=== PATIENT | male | born 1930 | race African-American/Black ===

== ENCOUNTER 2017-01-19 09:39 | Emergency (ER) | payer MEDICARE ==
[~2017-01-19] VITALS: Ht 177.8 cm; Wt 115.0 kg
[2017-01-19] MEDS ORDERED: ALBUTEROL (0.083%) 2.5MG/3ML NEB HHN STA (09:49)
[2017-01-19 10:23] LABS: BASOPHILS % 0.7 % (0.0-2.0); EOSINOPHILS % 2.8 % (0.0-5.0); HEMATOCRIT. 46.3 % (42.0-52.0); HEMOGLOBIN. 14.9 g/dL (14.0-18.0); LYMPHOCYTES % 44.8 % (20.0-50.0); MEAN CORPUSCULAR HGB CONC 32.2 g/dL (31.0-37.0); MEAN CORPUSCULAR VOLUME 86.9 fL (80.0-94.0); MEAN PLATELET VOLUME 8.2 fl (7.4-10.4); NEUTROPHILS % 40.7 % (40.0-76.0); PLATELET 134 x1000/uL (130-400); RED BLOOD CELL COUNT 5.32 mill/uL (4.7-6.1); RED CELL DISTRIBUTION WIDTH 14.8 % (11.6-14.6); WHITE BLOOD COUNT 5.5 x1000/uL (4.5-11.0)
[2017-01-19 10:32] LABS: ALBUMIN 3.3 g/dL (3.4-5.0); CALCIUM 8.7 mg/dL (8.5-10.1); CHLORIDE 104 mEq/L (98-107); INDEX HEMOLYSI 1 (1-3); INDEX ICTERIC 1 (1-4); INDEX LIPEMIC 1 (1-3)
[2017-01-19 10:38] LABS: ALANINE AMINOTRANSFERASE 24 IU/L (13-61); ANION GAP 13; CARBON DIOXIDE 27 mEq/L (21-32); UREA NITROGEN BLOOD 23 mg/dL (7-21); eGFR > 60 mL/min (>60)
[2017-01-19] MEDS ORDERED: ALBUTEROL (0.5%) 2.5MG/0.5ML NEB HHN ONE (11:00)
[2017-01-19] MEDS ORDERED: PREDNISONE 20MG TABLET PO ONE (11:00)
[2017-01-19 12:03] VITALS: BP 119/71
== END 2017-01-19 12:06 | disposition home or self-care (01) ==
LOC: ER 09:48
DX: J45.901 Unspecified asthma with (acute) exacerbation (principal); I10 Essential (primary) hypertension; Z95.0 Presence of cardiac pacemaker
CPT/HCPCS: 36415; 71010; 80053; 85025; 93005; 94640; 99285; J7512; J7611

== ENCOUNTER 2017-09-09 08:26 | Emergency (ER) | payer MEDICARE ==
[~2017-09-09] VITALS: Ht 177.8 cm; Wt 110.0 kg
[2017-09-09] MEDS ORDERED: HYDROCODONE/ACETAMINOPHEN 5/325MG TABLET PO ONE (08:45)
[2017-09-09] MEDS ORDERED: KETOROLAC 30MG/ML VIAL IM ONE (08:45)
[2017-09-09 09:36] LABS: KETONES URINE NEGATIVE (NEGATIVE); LEUKOCYTE ESTERASE URINE NEGATIVE (NEGATIVE); NITRITE URINE NEGATIVE (NEGATIVE); OCCULT BLOOD URINE NEGATIVE (NEGATIVE); PROTEIN URINE NEGATIVE (NEGATIVE); SPECIFIC GRAVITY URINE 1.019 (1.005-1.030); UROBILINOGEN URINE 0.2 E.U./dL (0.2-1.0)
[2017-09-09 09:38] LABS: CLARITY URINE CLEAR (CLEAR); COLOR URINE YELLOW (YELLOW)
[2017-09-09 10:45] VITALS: BP 122/72
== END 2017-09-09 10:47 | disposition home or self-care (01) ==
LOC: ER 08:26
DX: M54.5 Low back pain (principal); M25.552 Pain in left hip; J45.909 Unspecified asthma, uncomplicated; I10 Essential (primary) hypertension; Z95.0 Presence of cardiac pacemaker
CPT/HCPCS: 72100; 73502; 81003; 96372; 99285; J1885

== ENCOUNTER 2019-09-14 11:54 | Inpatient (IN) | payer MEDICARE ==
[~2019-09-14] VITALS: Ht 180.3 cm; Wt 110.2 kg
[2019-09-14] VITALS (7 sets, daily range): BP systolic 95–153; BP diastolic 37–88
[2019-09-14] MEDS ORDERED: FUROSEMIDE 40MG/4ML VIAL IV ONE (12:30)
[2019-09-14 13:08] LABS: CHLORIDE 107 mEq/L (98-107)
[2019-09-14 14:31] LABS: BASOPHILS % 0.7 % (0.0-2.0); EOSINOPHILS % 1.4 % (0.0-5.0); HEMATOCRIT. 42.4 % (42.0-52.0); HEMOGLOBIN. 13.9 g/dL (14.0-18.0); LYMPHOCYTES % 20.3 % (20.0-50.0); MEAN CORPUSCULAR HEMOGLOBIN 29.2 pg (28.0-32.0); MEAN CORPUSCULAR VOLUME 88.8 fL (80.0-94.0); MEAN PLATELET VOLUME 9.4 fl (7.4-10.4); MONOCYTES % 10.8 % (2.0-8.0); NEUTROPHILS % 66.8 % (40.0-76.0); PLATELET 138 x1000/uL (130-400); RED BLOOD CELL COUNT 4.78 mill/uL (4.7-6.1); RED CELL DISTRIBUTION WIDTH 15.4 % (11.6-14.6)
[2019-09-14] MEDS ORDERED: DIPHENHYDRAMINE 50MG/ML VIAL IV PRN (17:00)
[2019-09-14] MEDS ORDERED: TEMAZEPAM 15MG CAPSULE PO PRN (17:00)
[2019-09-14] MEDS ORDERED: IPRATROPIUM/ALBUTEROL 0.5-3(2.5)MG/3ML NEB HHN PRN (17:00)
[2019-09-14] MEDS ORDERED: HYDROCODONE/ACETAMINOPHEN 5/325MG TABLET PO PRN (17:00)
[2019-09-14] MEDS ORDERED: ONDANSETRON HCL 4MG/2ML INJ IV PRN (17:00)
[2019-09-14] MEDS ORDERED: MAGNESIUM/ALUMINUM HYDROXIDE/SIMETHICONE 30ML UDC PO PRN (17:00)
[2019-09-14] MEDS ORDERED: MAGNESIUM HYDROXIDE 400MG/5ML 30ML UDC PO PRN (17:00)
[2019-09-14] MEDS ORDERED: ACETAMINOPHEN 325MG TABLET PO PRN (17:00)
[2019-09-14] MEDS ORDERED: GUAIFENESIN 200MG/10ML SUGAR FREE UDC PO PRN (17:00)
[2019-09-14] MEDS: FUROSEMIDE 40MG/4ML VIAL IVP SCH (17:37)
[2019-09-14] MEDS: BENAZEPRIL 10MG TABLET PO SCH (17:37)
[2019-09-14] MEDS: DOCUSATE SODIUM 100MG CAPSULE PO SCH (17:37)
[2019-09-14] MEDS: ENOXAPARIN 30MG/0.3ML SYR SUBCUT SCH (17:38)
[2019-09-14] MEDS ORDERED: ATOR-2 PO (18:25)
[2019-09-14] MEDS ORDERED: METO100T16 PO (18:25)
[2019-09-14] MEDS ORDERED: FURO40TA5 PO (18:25)
[2019-09-14] MEDS ORDERED: SACU1TAB4 MT (18:25)
[2019-09-14] MEDS ORDERED: ASPI-1079 PO (18:26)
[2019-09-14] MEDS ORDERED: CHOL200059 MT (18:27)
[2019-09-14] MEDS: IPRATROPIUM/ALBUTEROL 0.5-3(2.5)MG/3ML NEB HHN SCH (20:26)
[2019-09-14] MEDS: CARVEDILOL 6.25 MG TABLET PO SCH (21:26)
[2019-09-14] MEDS: SODIUM CHLORIDE 0.9% INJ 3ML FLUSH IVF SCH (21:26)
[2019-09-15] VITALS (14 sets, daily range): BP systolic 89–134; BP diastolic 52–78
[2019-09-15 00:22] LABS: BASOPHILS % 0.8 % (0.0-2.0); EOSINOPHILS % 0.8 % (0.0-5.0); HEMATOCRIT. 41.7 % (42.0-52.0); HEMOGLOBIN. 13.5 g/dL (14.0-18.0); LYMPHOCYTES % 20.6 % (20.0-50.0); MEAN CORPUSCULAR HEMOGLOBIN 28.8 pg (28.0-32.0); MEAN CORPUSCULAR VOLUME 89.2 fL (80.0-94.0); MEAN PLATELET VOLUME 9.2 fl (7.4-10.4); MONOCYTES % 11.1 % (2.0-8.0); NEUTROPHILS % 66.7 % (40.0-76.0); PLATELET 109 x1000/uL (130-400); RED BLOOD CELL COUNT 4.68 mill/uL (4.7-6.1); RED CELL DISTRIBUTION WIDTH 15.3 % (11.6-14.6)
[2019-09-15 00:29] LABS: CHLORIDE 106 mEq/L (98-107)
[2019-09-15] MEDS: IPRATROPIUM/ALBUTEROL 0.5-3(2.5)MG/3ML NEB HHN SCH ×4 (02:27→20:12)
[2019-09-15] MEDS: FUROSEMIDE 40MG/4ML VIAL IVP SCH ×2 (05:57→17:43)
[2019-09-15] MEDS: BENAZEPRIL 10MG TABLET PO SCH ×2 (06:00→17:44)
[2019-09-15] MEDS: SODIUM CHLORIDE 0.9% INJ 3ML FLUSH IVF SCH ×3 (06:01→22:22)
[2019-09-15] MEDS: ENOXAPARIN 30MG/0.3ML SYR SUBCUT SCH ×2 (06:02→17:44)
[2019-09-15] MEDS: CARVEDILOL 6.25 MG TABLET PO SCH ×2 (08:58→20:15)
[2019-09-15] MEDS: DOCUSATE SODIUM 100MG CAPSULE PO SCH ×2 (08:58→17:00)
[2019-09-15] MEDS ORDERED: METHYLPREDNISOLONE SOD SUCC 125 MG/2 ML VIAL IV NR (15:00)
[2019-09-15 17:32] LABS: BG CARBOXYHEMOGLOBIN 0.4 % (0.5-1.5); BG DEOXYHEMOGLOBIN 4.4 % (0.0-5.0); BG FRACTION INSPIRED OXYGEN 28; BG HCO3 ACT 28.5 mmol/L (22.0-26.0); BG METHEMOGLOBIN 0.2 % (0.0-1.5); BG OXYGEN SATURATION 95.6 % (92.0-98.5); BG PCO2 52.3 mmHg (35.0-45.0); BG PH 7.354 (7.350-7.450); BG PO2 82.4 mmHg (75.0-100.0); BG SAMPLE SITE LEFT RADIAL; BG TOTAL HEMOGLOBIN 13.8 g/dL (12.0-18.0); BG VENT MODE NASAL CANNULA
[2019-09-15] MEDS: GUAIFENESIN 600MG ER TABLET PO SCH (20:15)
[2019-09-15] MEDS: METHYLPREDNISOLONE SOD SUCC 125 MG/2 ML VIAL IV SCH (22:22)
[2019-09-16] VITALS (13 sets, daily range): BP systolic 88–139; BP diastolic 48–88
[2019-09-16] MEDS: IPRATROPIUM/ALBUTEROL 0.5-3(2.5)MG/3ML NEB HHN SCH ×4 (02:16→20:33)
[2019-09-16] MEDS: FUROSEMIDE 40MG/4ML VIAL IVP SCH ×2 (06:31→17:27)
[2019-09-16] MEDS: METHYLPREDNISOLONE SOD SUCC 125 MG/2 ML VIAL IV SCH ×3 (06:32→21:13)
[2019-09-16] MEDS: SODIUM CHLORIDE 0.9% INJ 3ML FLUSH IVF SCH ×3 (06:33→21:14)
[2019-09-16] MEDS: ENOXAPARIN 30MG/0.3ML SYR SUBCUT SCH ×2 (06:33→17:27)
[2019-09-16] MEDS: BENAZEPRIL 10MG TABLET PO SCH ×2 (07:05→17:27)
[2019-09-16] MEDS: DOCUSATE SODIUM 100MG CAPSULE PO SCH ×2 (09:00→17:00)
[2019-09-16] MEDS: CARVEDILOL 6.25 MG TABLET PO SCH ×2 (11:49→21:14)
[2019-09-16] MEDS: GUAIFENESIN 600MG ER TABLET PO SCH ×2 (11:50→21:11)
[2019-09-16] MEDS ORDERED: OXYCODONE HCL/ACETAMINOPHEN 5/325MG TABLET PO PRN ×2 (19:45)
[2019-09-17 00:01] VITALS: BP 101/56
[2019-09-17] MEDS: IPRATROPIUM/ALBUTEROL 0.5-3(2.5)MG/3ML NEB HHN SCH ×4 (01:07→20:01)
[2019-09-17 04:00] VITALS: BP 118/79
[2019-09-17] MEDS: FUROSEMIDE 40MG/4ML VIAL IVP SCH ×2 (05:00→18:26)
[2019-09-17] MEDS: METHYLPREDNISOLONE SOD SUCC 125 MG/2 ML VIAL IV SCH ×3 (05:43→21:36)
[2019-09-17] MEDS: BENAZEPRIL 10MG TABLET PO SCH ×2 (05:43→18:00)
[2019-09-17] MEDS: SODIUM CHLORIDE 0.9% INJ 3ML FLUSH IVF SCH ×3 (05:43→21:36)
[2019-09-17] MEDS: ENOXAPARIN 30MG/0.3ML SYR SUBCUT SCH ×2 (05:44→18:26)
[2019-09-17 06:54] LABS: HEMATOCRIT. 44.5 % (42.0-52.0); HEMOGLOBIN. 14.6 g/dL (14.0-18.0); MEAN CORPUSCULAR HEMOGLOBIN 28.9 pg (28.0-32.0); MEAN CORPUSCULAR VOLUME 88.2 fL (80.0-94.0); RED BLOOD CELL COUNT 5.04 mill/uL (4.7-6.1); RED CELL DISTRIBUTION WIDTH 14.7 % (11.6-14.6)
[2019-09-17 08:00] VITALS: BP 102/53
[2019-09-17 08:38] LABS: CHLORIDE 102 mEq/L (98-107)
[2019-09-17] MEDS: CARVEDILOL 6.25 MG TABLET PO SCH ×2 (08:58→21:35)
[2019-09-17] MEDS: DOCUSATE SODIUM 100MG CAPSULE PO SCH ×2 (09:00→17:00)
[2019-09-17] MEDS: GUAIFENESIN 600MG ER TABLET PO SCH ×2 (09:00→21:34)
[2019-09-17 12:00] VITALS: BP 103/45
[2019-09-17 12:39] LABS: PLATELET 104 x1000/uL (130-400)
[2019-09-17 12:43] LABS: PLATELET ESTIMATE SLIGHTLY DECREASED
[2019-09-17 16:00] VITALS: BP 107/49
[2019-09-17 20:00] VITALS: BP 112/59
[2019-09-18] VITALS: BP 96/50
[2019-09-18] MEDS: IPRATROPIUM/ALBUTEROL 0.5-3(2.5)MG/3ML NEB HHN SCH ×4 (01:52→20:46)
[2019-09-18 04:00] VITALS: BP 114/69
[2019-09-18] MEDS: FUROSEMIDE 40MG/4ML VIAL IVP SCH ×2 (04:54→16:30)
[2019-09-18] MEDS: SODIUM CHLORIDE 0.9% INJ 3ML FLUSH IVF SCH ×3 (06:08→21:14)
[2019-09-18] MEDS: METHYLPREDNISOLONE SOD SUCC 125 MG/2 ML VIAL IV SCH ×3 (06:08→21:14)
[2019-09-18] MEDS: BENAZEPRIL 10MG TABLET PO SCH ×2 (06:08→16:30)
[2019-09-18] MEDS: ENOXAPARIN 30MG/0.3ML SYR SUBCUT SCH ×2 (06:10→16:30)
[2019-09-18 08:00] VITALS: BP 129/72
[2019-09-18] MEDS: DOCUSATE SODIUM 100MG CAPSULE PO SCH ×2 (09:00→16:26)
[2019-09-18] MEDS: GUAIFENESIN 600MG ER TABLET PO SCH ×2 (09:21→21:14)
[2019-09-18] MEDS: CARVEDILOL 6.25 MG TABLET PO SCH ×2 (09:21→21:14)
[2019-09-18 12:00] VITALS: BP 102/60
[2019-09-18 16:00] VITALS: BP 122/48
[2019-09-18 20:00] VITALS: BP 130/79
[2019-09-19] VITALS: BP 135/97
[2019-09-19] MEDS: IPRATROPIUM/ALBUTEROL 0.5-3(2.5)MG/3ML NEB HHN SCH ×4 (02:50→21:19)
[2019-09-19 04:00] VITALS: BP 103/57
[2019-09-19] MEDS: FUROSEMIDE 40MG/4ML VIAL IVP SCH ×2 (05:09→17:07)
[2019-09-19] MEDS: SODIUM CHLORIDE 0.9% INJ 3ML FLUSH IVF SCH ×3 (05:51→21:10)
[2019-09-19] MEDS: METHYLPREDNISOLONE SOD SUCC 125 MG/2 ML VIAL IV SCH ×3 (05:51→21:10)
[2019-09-19] MEDS: ENOXAPARIN 30MG/0.3ML SYR SUBCUT SCH ×2 (05:52→17:07)
[2019-09-19] MEDS: BENAZEPRIL 10MG TABLET PO SCH ×2 (05:52→17:07)
[2019-09-19 08:00] VITALS: BP 127/66
[2019-09-19] MEDS: CARVEDILOL 6.25 MG TABLET PO SCH ×2 (08:28→21:10)
[2019-09-19] MEDS: GUAIFENESIN 600MG ER TABLET PO SCH ×2 (08:28→21:10)
[2019-09-19] MEDS: DOCUSATE SODIUM 100MG CAPSULE PO SCH ×2 (08:28→17:00)
[2019-09-19 08:33] LABS: BG CARBOXYHEMOGLOBIN 0.7 % (0.5-1.5); BG DEOXYHEMOGLOBIN 5.3 % (0.0-5.0); BG FRACTION INSPIRED OXYGEN 28; BG HCO3 ACT 33.5 mmol/L (22.0-26.0); BG METHEMOGLOBIN 0.5 % (0.0-1.5); BG OXYGEN SATURATION 94.6 % (92.0-98.5); BG OXYHEMOGLOBIN 93.5 % (94.0-97.0); BG PH 7.411 (7.350-7.450); BG PO2 75.1 mmHg (75.0-100.0); BG SAMPLE SITE RIGHT RADIAL; BG TOTAL HEMOGLOBIN 16.1 g/dL (12.0-18.0); BG VENT MODE NASAL CANNULA
[2019-09-19 12:00] VITALS: BP 140/70
[2019-09-19 16:00] VITALS: BP 136/67
[2019-09-19 18:11] LABS: BG BASE EXCESS 7.8 mmol/L (-2.0-2.0); BG CARBOXYHEMOGLOBIN 0.6 % (0.5-1.5); BG DEOXYHEMOGLOBIN 10.8 % (0.0-5.0); BG FRACTION INSPIRED OXYGEN 21; BG METHEMOGLOBIN 0.4 % (0.0-1.5); BG OXYGEN SATURATION 89.1 % (92.0-98.5); BG OXYHEMOGLOBIN 88.2 % (94.0-97.0); BG PCO2 58.6 mmHg (35.0-45.0); BG PH 7.394 (7.350-7.450); BG PO2 56.5 mmHg (75.0-100.0); BG SAMPLE SITE RIGHT RADIAL; BG TOTAL HEMOGLOBIN 16.1 g/dL (12.0-18.0); BG VENT MODE ROOM AIR
[2019-09-19 20:00] VITALS: BP 151/92
[2019-09-20] VITALS: BP 122/63
[2019-09-20] MEDS: IPRATROPIUM/ALBUTEROL 0.5-3(2.5)MG/3ML NEB HHN SCH ×3 (02:37→14:41)
[2019-09-20 04:00] VITALS: BP 119/60
[2019-09-20] MEDS: FUROSEMIDE 40MG/4ML VIAL IVP SCH (05:32)
[2019-09-20] MEDS: METHYLPREDNISOLONE SOD SUCC 125 MG/2 ML VIAL IV SCH ×2 (05:50→13:47)
[2019-09-20] MEDS: BENAZEPRIL 10MG TABLET PO SCH (05:51)
[2019-09-20] MEDS: ENOXAPARIN 30MG/0.3ML SYR SUBCUT SCH (05:51)
[2019-09-20] MEDS: SODIUM CHLORIDE 0.9% INJ 3ML FLUSH IVF SCH ×2 (05:51→14:00)
[2019-09-20 08:00] VITALS: BP 113/73
[2019-09-20] MEDS: CARVEDILOL 6.25 MG TABLET PO SCH (09:35)
[2019-09-20] MEDS: DOCUSATE SODIUM 100MG CAPSULE PO SCH (09:35)
[2019-09-20] MEDS: GUAIFENESIN 600MG ER TABLET PO SCH (09:36)
[2019-09-20 12:00] VITALS: BP 115/70
[2019-09-20 15:46] VITALS: BP 115/70
== END 2019-09-20 16:40 | disposition home or self-care (01) | DRG 291 ==
LOC: EDBD → ER 11:54 → EDBD 14:11 → 3WST 14:11 → ENRESERV 14:30 → EDBEDREQ 14:33 → 7WST 09-17 01:34
PROVIDERS: ADMIT Internal Medicine; ATTEND Internal Medicine
PROC: 5A09357 Assistance with Respiratory Ventilation, Less than 24 Consecutive Hours, Continuous Positive Airway Pressure (ICD-10-PCS; principal; 2019-09-14)
DX: I11.0 Hypertensive heart disease with heart failure (principal); J96.00 Acute respiratory failure, unspecified whether with hypoxia or hypercapnia; E44.1 Mild protein-calorie malnutrition; I50.43 Acute on chronic combined systolic (congestive) and diastolic (congestive) heart failure; I42.9 Cardiomyopathy, unspecified; J44.9 Chronic obstructive pulmonary disease, unspecified; E78.5 Hyperlipidemia, unspecified; D64.9 Anemia, unspecified; D69.6 Thrombocytopenia, unspecified; E66.9 Obesity, unspecified; J45.50 Severe persistent asthma, uncomplicated; Z85.46 Personal history of malignant neoplasm of prostate; Z86.74 Personal history of sudden cardiac arrest; Z95.810 Presence of automatic (implantable) cardiac defibrillator; Z68.33 Body mass index [BMI] 33.0-33.9, adult; Z82.5 Family history of asthma and other chronic lower respiratory diseases; Z87.891 Personal history of nicotine dependence
CPT/HCPCS: 36415; 36600; 71045; 80048; 80053; 82375; 82805; 83735; 83880; 84484; 85025; 93005; 93306; 93970; 94618; 94640; 97162; 99291; C1893; J1650; J1940; J2930; J7040; J7620

== ENCOUNTER 2019-09-23 13:02 | Inpatient (IN) | payer MEDICARE ==
[~2019-09-23] VITALS: Ht 175.3 cm; Wt 99.3 kg
[2019-09-23] VITALS (19 sets, daily range): BP systolic 66–154; BP diastolic 35–120
[~2019-09-23 13:02] MED LIST: ASPI-1079 PO; ATOR-2 PO; CHOL200059 MT; FURO40TA5 PO; METO100T16 PO; SACU1TAB4 MT
[2019-09-23] MEDS ORDERED: ALBUTEROL (0.083%) 2.5MG/3ML NEB HHN STA (13:09)
[2019-09-23] MEDS ORDERED: MAGNESIUM 2 G PREMIX 50 ML IV STA (13:09)
[2019-09-23] MEDS ORDERED: IPRATROPIUM BROMIDE (0.02%) 0.5MG/2.5ML NEB HHN STA (13:09)
[2019-09-23] MEDS ORDERED: METHYLPREDNISOLONE SOD SUCC 125 MG/2 ML VIAL IV STA (13:09)
[2019-09-23 14:22] LABS: HEMATOCRIT. 52.6 % (42.0-52.0); HEMOGLOBIN. 16.7 g/dL (14.0-18.0); MEAN CORPUSCULAR HEMOGLOBIN 28.5 pg (28.0-32.0); MEAN CORPUSCULAR VOLUME 89.5 fL (80.0-94.0); MEAN PLATELET VOLUME 9.1 fl (7.4-10.4); PLATELET 158 x1000/uL (130-400); RED BLOOD CELL COUNT 5.88 mill/uL (4.7-6.1); RED CELL DISTRIBUTION WIDTH 15.4 % (11.6-14.6)
[2019-09-23] MEDS ORDERED: LEVOFLOXACIN 500MG PREMIX 100 ML IV ONE (14:30)
[2019-09-23] MEDS ORDERED: FUROSEMIDE 40MG/4ML VIAL IVP ONE (14:30)
[2019-09-23 14:31] LABS: CHLORIDE 97 mEq/L (98-107)
[2019-09-23 14:39] LABS: INR 1.2; PROTHROMBIN TIME 11.9 sec (9.6-11.0)
[2019-09-23 14:51] LABS: BG BASE EXCESS 3.5 mmol/L (-2.0-2.0); BG BILEVEL POS AIRWAY PRESSURE 20/5; BG CARBOXYHEMOGLOBIN 0.9 % (0.5-1.5); BG DEOXYHEMOGLOBIN 0.1 % (0.0-5.0); BG FRACTION INSPIRED OXYGEN 100; BG HCO3 ACT 36.1 mmol/L (22.0-26.0); BG METHEMOGLOBIN 0.5 % (0.0-1.5); BG OXYGEN SATURATION 99.9 % (92.0-98.5); BG OXYHEMOGLOBIN 98.5 % (94.0-97.0); BG PCO2 97.8 mmHg (35.0-45.0); BG PH 7.185 (7.350-7.450); BG PO2 492.2 mmHg (75.0-100.0); BG SAMPLE SITE RIGHT BRACHIAL; BG TOTAL HEMOGLOBIN 16.4 g/dL (12.0-18.0); BG VENT MODE MASK - BIPAP
[2019-09-23] MEDS ORDERED: SUCCINYLCHOLINE CHLORIDE 200MG/10ML IV ONE (15:00)
[2019-09-23] MEDS ORDERED: LORAZEPAM 2MG/ML CPJ IV ONE (15:00)
[2019-09-23] MEDS ORDERED: PROPOFOL 10MG/ML 100ML 100 ML IV ONE (15:00)
[2019-09-23] MEDS ORDERED: ETOMIDATE 2MG/ML 10ML VIAL IV ONE (15:00)
[2019-09-23] MEDS ORDERED: MIDAZOLAM HCL 50 MG in DEXTROSE 5% WATER 40 ML IV ONE ×2 (15:30→16:45)
[2019-09-23] MEDS ORDERED: NOREPINEPHRINE 4 MG in DEXT 5% WATER 246 ML IV ONE (15:30)
[2019-09-23 15:32] LABS: PLATELET ESTIMATE NORMAL
[2019-09-23] MEDS ORDERED: NOREPINEPHRINE 4MG/250ML PMX 250 ML IV ONE (15:33)
[2019-09-23 16:19] LABS: BG BASE EXCESS 3.1 mmol/L (-2.0-2.0); BG CARBOXYHEMOGLOBIN 0.7 % (0.5-1.5); BG DEOXYHEMOGLOBIN 0.2 % (0.0-5.0); BG FRACTION INSPIRED OXYGEN 100; BG HCO3 ACT 32.9 mmol/L (22.0-26.0); BG METHEMOGLOBIN 0.5 % (0.0-1.5); BG OXYGEN SATURATION 99.8 % (92.0-98.5); BG OXYHEMOGLOBIN 98.6 % (94.0-97.0); BG PO2 455.2 mmHg (75.0-100.0); BG SAMPLE SITE RIGHT RADIAL; BG TIDAL VOLUME(mL) 600 mL; BG TOTAL HEMOGLOBIN 15.5 g/dL (12.0-18.0); BG VENT MODE VENT - A/C; BG VENT RATE 14 set
[2019-09-23] MEDS ORDERED: FUROSEMIDE 40MG/4ML VIAL IVP SCH ×2 (18:00→19:30)
[2019-09-23] MEDS ORDERED: PHENYLEPHRINE 40 MG in DEXT 5% WATER 246 ML IV PRN (19:00)
[2019-09-23] MEDS ORDERED: IPRATROPIUM/ALBUTEROL 0.5-3(2.5)MG/3ML NEB NEB PRN (19:00)
[2019-09-23] MEDS ORDERED: ONDANSETRON HCL 4MG/2ML INJ IV PRN (19:00)
[2019-09-23] MEDS ORDERED: ACETAMINOPHEN 650MG SUPP PR PRN (19:00)
[2019-09-23] MEDS: LORAZEPAM 2MG/ML CPJ IV PRN (19:26)
[2019-09-23 19:27] LABS: BG BASE EXCESS 1.7 mmol/L (-2.0-2.0); BG CARBOXYHEMOGLOBIN 0.6 % (0.5-1.5); BG DEOXYHEMOGLOBIN 0.8 % (0.0-5.0); BG FRACTION INSPIRED OXYGEN 60; BG HCO3 ACT 32.7 mmol/L (22.0-26.0); BG METHEMOGLOBIN 0.7 % (0.0-1.5); BG OXYGEN SATURATION 99.2 % (92.0-98.5); BG OXYHEMOGLOBIN 97.9 % (94.0-97.0); BG PCO2 82.4 mmHg (35.0-45.0); BG PH 7.216 (7.350-7.450); BG SAMPLE SITE RIGHT BRACHIAL; BG TIDAL VOLUME(mL) 600 mL; BG TOTAL HEMOGLOBIN 16.3 g/dL (12.0-18.0); BG VENT MODE VENT - A/C; BG VENT RATE 22 set
[2019-09-23] MEDS: DEXT 5%/0.45% NACL 1000ML 1,000 ML IV SCH (19:29)
[2019-09-23] MEDS: MIDAZOLAM HCL 100 MG in DEXT 5% WATER 80 ML IV PRN (19:31)
[2019-09-23] MEDS ORDERED: ALBUTEROL (0.083%) 2.5MG/3ML NEB HHN SCH (20:00)
[2019-09-23] MEDS ORDERED: SODIUM BICARBONATE 8.4% 1 MEQ/ML 50ML SYR IV NR (20:00)
[2019-09-23] MEDS: IPRATROPIUM/ALBUTEROL 0.5-3(2.5)MG/3ML NEB HHN SCH (20:23)
[2019-09-23] MEDS ORDERED: ENOXAPARIN 30MG/0.3ML SYR SUBCUT SCH (21:00)
[2019-09-23] MEDS: FAMOTIDINE 20MG/2ML VIAL IV SCH (21:25)
[2019-09-23] MEDS: METHYLPREDNISOLONE SOD SUCC 125 MG/2 ML VIAL IV SCH (21:25)
[2019-09-23] MEDS: DIPHENHYDRAMINE 50MG/ML VIAL IV PRN (22:09)
[2019-09-23] MEDS: PIPERACILLIN/TAZOBACTAM 3.375 G in DEXT 5% WATER 100 ML IV SCH (22:11)
[2019-09-23 22:19] LABS: BG BASE EXCESS 4.5 mmol/L (-2.0-2.0); BG CARBOXYHEMOGLOBIN 0.3 % (0.5-1.5); BG DEOXYHEMOGLOBIN 0.6 % (0.0-5.0); BG FRACTION INSPIRED OXYGEN 60; BG HCO3 ACT 27.5 mmol/L (22.0-26.0); BG METHEMOGLOBIN 0.5 % (0.0-1.5); BG OXYGEN SATURATION 99.4 % (92.0-98.5); BG OXYHEMOGLOBIN 98.6 % (94.0-97.0); BG PCO2 36.1 mmHg (35.0-45.0); BG PO2 255.4 mmHg (75.0-100.0); BG SAMPLE SITE RIGHT RADIAL; BG TIDAL VOLUME(mL) 600 mL; BG TOTAL HEMOGLOBIN 16.1 g/dL (12.0-18.0); BG VENT MODE VENT - A/C; BG VENT RATE 26 set
[2019-09-24] VITALS (92 sets, daily range): BP systolic 89–144; BP diastolic 46–97
[2019-09-24] MEDS ORDERED: HYDRALAZINE 20MG/ML VIAL IV SCH
[2019-09-24] MEDS: IPRATROPIUM/ALBUTEROL 0.5-3(2.5)MG/3ML NEB HHN SCH ×6 (00:20→20:11)
[2019-09-24] MEDS: PHENYLEPHRINE 80 MG in DEXT 5% WATER 492 ML IV PRN (00:51)
[2019-09-24] MEDS: PIPERACILLIN/TAZOBACTAM 3.375 G in DEXT 5% WATER 100 ML IV SCH ×4 (03:26→21:23)
[2019-09-24] MEDS: BLOOD SUGAR DIAGNOSTIC STRIP TEST SCH ×3 (06:00→17:39)
[2019-09-24 06:02] LABS: HEMOGLOBIN. 15.3 g/dL (14.0-18.0); MEAN CORPUSCULAR HEMOGLOBIN 28.6 pg (28.0-32.0); MEAN PLATELET VOLUME 8.8 fl (7.4-10.4); PLATELET 154 x1000/uL (130-400); RED BLOOD CELL COUNT 5.34 mill/uL (4.7-6.1); RED CELL DISTRIBUTION WIDTH 15.4 % (11.6-14.6)
[2019-09-24 06:15] LABS: CHLORIDE 100 mEq/L (98-107)
[2019-09-24 07:51] LABS: BG BASE EXCESS 7.4 mmol/L (-2.0-2.0); BG CARBOXYHEMOGLOBIN 0.1 % (0.5-1.5); BG DEOXYHEMOGLOBIN 0.4 % (0.0-5.0); BG FRACTION INSPIRED OXYGEN 60; BG HCO3 ACT 29.8 mmol/L (22.0-26.0); BG METHEMOGLOBIN 0.2 % (0.0-1.5); BG OXYGEN SATURATION 99.6 % (92.0-98.5); BG OXYHEMOGLOBIN 99.3 % (94.0-97.0); BG PH 7.548 (7.350-7.450); BG PO2 265.3 mmHg (75.0-100.0); BG SAMPLE SITE RIGHT RADIAL; BG TIDAL VOLUME(mL) 600 mL; BG TOTAL HEMOGLOBIN 15.2 g/dL (12.0-18.0); BG VENT MODE VENT - A/C; BG VENT RATE 26 set
[2019-09-24] MEDS: METHYLPREDNISOLONE SOD SUCC 125 MG/2 ML VIAL IV SCH ×3 (08:15→21:23)
[2019-09-24] MEDS: FAMOTIDINE 20MG/2ML VIAL IV SCH ×2 (09:03→21:23)
[2019-09-24] MEDS: FUROSEMIDE 40MG/4ML VIAL IVP SCH ×2 (09:46→17:19)
[2019-09-24 10:09] LABS: BG BASE EXCESS 9.1 mmol/L (-2.0-2.0); BG CARBOXYHEMOGLOBIN 0.6 % (0.5-1.5); BG DEOXYHEMOGLOBIN 0.9 % (0.0-5.0); BG FRACTION INSPIRED OXYGEN 45; BG HCO3 ACT 33.2 mmol/L (22.0-26.0); BG METHEMOGLOBIN 0.4 % (0.0-1.5); BG OXYGEN SATURATION 99.1 % (92.0-98.5); BG OXYHEMOGLOBIN 98.1 % (94.0-97.0); BG PCO2 42.8 mmHg (35.0-45.0); BG PH 7.507 (7.350-7.450); BG PO2 141.2 mmHg (75.0-100.0); BG SAMPLE SITE RIGHT RADIAL; BG TIDAL VOLUME(mL) 550 mL; BG TOTAL HEMOGLOBIN 15.1 g/dL (12.0-18.0); BG VENT MODE VENT - A/C; BG VENT RATE 20 set
[2019-09-24 10:46] LABS: PLATELET ESTIMATE NORMAL
[2019-09-24] MEDS ORDERED: INSULIN LISPRO 100 UNITS/ML SUBCUT SCH (12:00)
[2019-09-24] MEDS: DEXT 5%/0.45% NACL 1000ML 1,000 ML IV SCH (14:04)
[2019-09-24] MEDS: MIDAZOLAM HCL 100 MG in DEXT 5% WATER 80 ML IV PRN (14:51)
[2019-09-24] MEDS: INSULIN LISPRO 100 UNITS/ML SUBCUT SCH (17:43)
[2019-09-25] VITALS (65 sets, daily range): BP systolic 83–137; BP diastolic 36–84
[2019-09-25] MEDS: BLOOD SUGAR DIAGNOSTIC STRIP TEST SCH ×4 (00:14→17:16)
[2019-09-25] MEDS: INSULIN LISPRO 100 UNITS/ML SUBCUT SCH ×4 (00:15→17:16)
[2019-09-25] MEDS: IPRATROPIUM/ALBUTEROL 0.5-3(2.5)MG/3ML NEB HHN SCH ×6 (00:20→20:54)
[2019-09-25] MEDS: PIPERACILLIN/TAZOBACTAM 3.375 G in DEXT 5% WATER 100 ML IV SCH ×4 (03:41→21:18)
[2019-09-25] MEDS: PHENYLEPHRINE 80 MG in DEXT 5% WATER 492 ML IV PRN (03:42)
[2019-09-25] MEDS: METHYLPREDNISOLONE SOD SUCC 125 MG/2 ML VIAL IV SCH ×3 (05:23→21:18)
[2019-09-25] MEDS: MIDAZOLAM HCL 100 MG in DEXT 5% WATER 80 ML IV PRN (05:23)
[2019-09-25 06:27] LABS: CHLORIDE 101 mEq/L (98-107)
[2019-09-25 06:31] LABS: HEMOGLOBIN. 14.3 g/dL (14.0-18.0); MEAN CORPUSCULAR HEMOGLOBIN 28.4 pg (28.0-32.0); MEAN CORPUSCULAR VOLUME 87.6 fL (80.0-94.0); MEAN PLATELET VOLUME 8.6 fl (7.4-10.4); PLATELET 140 x1000/uL (130-400); RED BLOOD CELL COUNT 5.03 mill/uL (4.7-6.1); RED CELL DISTRIBUTION WIDTH 15.1 % (11.6-14.6)
[2019-09-25 07:39] LABS: BG BASE EXCESS 8.3 mmol/L (-2.0-2.0); BG CARBOXYHEMOGLOBIN 0.5 % (0.5-1.5); BG DEOXYHEMOGLOBIN 1.2 % (0.0-5.0); BG FRACTION INSPIRED OXYGEN 40; BG HCO3 ACT 33.9 mmol/L (22.0-26.0); BG METHEMOGLOBIN 0.4 % (0.0-1.5); BG OXYGEN SATURATION 98.8 % (92.0-98.5); BG OXYHEMOGLOBIN 97.9 % (94.0-97.0); BG PCO2 50.1 mmHg (35.0-45.0); BG PH 7.448 (7.350-7.450); BG PO2 130.6 mmHg (75.0-100.0); BG SAMPLE SITE RIGHT RADIAL; BG TIDAL VOLUME(mL) 550 mL; BG TOTAL HEMOGLOBIN 14.7 g/dL (12.0-18.0); BG VENT MODE VENT - A/C; BG VENT RATE 16 set
[2019-09-25] MEDS: FUROSEMIDE 40MG/4ML VIAL IVP SCH ×2 (08:09→17:15)
[2019-09-25] MEDS: FAMOTIDINE 20MG/2ML VIAL IV SCH ×2 (08:09→21:18)
[2019-09-25 10:33] LABS: PLATELET ESTIMATE NORMAL
[2019-09-25] MEDS: DEXT 5%/0.45% NACL 1000ML 1,000 ML IV SCH (11:30)
[2019-09-26] VITALS (46 sets, daily range): BP systolic 81–143; BP diastolic 41–86
[2019-09-26] MEDS: INSULIN LISPRO 100 UNITS/ML SUBCUT SCH ×3 (00:46→17:22)
[2019-09-26] MEDS: BLOOD SUGAR DIAGNOSTIC STRIP TEST SCH ×3 (00:46→17:22)
[2019-09-26] MEDS: IPRATROPIUM/ALBUTEROL 0.5-3(2.5)MG/3ML NEB HHN SCH ×6 (00:47→20:07)
[2019-09-26] MEDS: PIPERACILLIN/TAZOBACTAM 3.375 G in DEXT 5% WATER 100 ML IV SCH ×4 (03:20→21:09)
[2019-09-26] MEDS: DEXT 5%/0.45% NACL 1000ML 1,000 ML IV SCH (03:23)
[2019-09-26 05:48] LABS: HEMATOCRIT. 44.5 % (42.0-52.0); HEMOGLOBIN. 14.5 g/dL (14.0-18.0); MEAN CORPUSCULAR HEMOGLOBIN 28.8 pg (28.0-32.0); MEAN CORPUSCULAR VOLUME 88.4 fL (80.0-94.0); MEAN PLATELET VOLUME 8.5 fl (7.4-10.4); PLATELET 106 x1000/uL (130-400); RED BLOOD CELL COUNT 5.03 mill/uL (4.7-6.1); RED CELL DISTRIBUTION WIDTH 15.3 % (11.6-14.6)
[2019-09-26 06:10] LABS: CHLORIDE 101 mEq/L (98-107)
[2019-09-26 08:32] LABS: PLATELET ESTIMATE SLIGHTLY DECREASED
[2019-09-26 08:40] LABS: BG BASE EXCESS 5.7 mmol/L (-2.0-2.0); BG CARBOXYHEMOGLOBIN 0.5 % (0.5-1.5); BG DEOXYHEMOGLOBIN 0.9 % (0.0-5.0); BG FRACTION INSPIRED OXYGEN 40; BG METHEMOGLOBIN 0.3 % (0.0-1.5); BG OXYGEN SATURATION 99.1 % (92.0-98.5); BG OXYHEMOGLOBIN 98.3 % (94.0-97.0); BG PCO2 58.6 mmHg (35.0-45.0); BG PH 7.368 (7.350-7.450); BG PO2 170.4 mmHg (75.0-100.0); BG SAMPLE SITE RIGHT RADIAL; BG TIDAL VOLUME(mL) 550 mL; BG VENT MODE VENT - A/C; BG VENT RATE 16 set
[2019-09-26] MEDS: FAMOTIDINE 20MG/2ML VIAL IV SCH ×2 (08:48→21:09)
[2019-09-26] MEDS: FUROSEMIDE 40MG/4ML VIAL IVP SCH ×2 (08:48→16:17)
[2019-09-26 10:15] LABS: BG BASE EXCESS 2.5 mmol/L (-2.0-2.0); BG CARBOXYHEMOGLOBIN 0.3 % (0.5-1.5); BG FRACTION INSPIRED OXYGEN 40; BG HCO3 ACT 31.1 mmol/L (22.0-26.0); BG METHEMOGLOBIN 0.1 % (0.0-1.5); BG OXYHEMOGLOBIN 95.6 % (94.0-97.0); BG PCO2 65.5 mmHg (35.0-45.0); BG PH 7.294 (7.350-7.450); BG PO2 89.2 mmHg (75.0-100.0); BG PRESSURE SUPPORT 14; BG SAMPLE SITE RIGHT RADIAL; BG TIDAL VOLUME(mL) 550 mL; BG TOTAL HEMOGLOBIN 15.2 g/dL (12.0-18.0); BG VENT MODE VENT - SIMV; BG VENT RATE 12 set
[2019-09-26] MEDS: METHYLPREDNISOLONE SOD SUCC 125 MG/2 ML VIAL IV SCH ×2 (13:37→21:10)
[2019-09-26] MEDS: INSULIN GLARGINE UD 100 UNITS/ML SYR SUBCUT SCH ×2 (13:43→21:32)
[2019-09-27] VITALS (46 sets, daily range): BP systolic 95–159; BP diastolic 52–98
[2019-09-27] MEDS: IPRATROPIUM/ALBUTEROL 0.5-3(2.5)MG/3ML NEB HHN SCH ×6 (00:40→21:14)
[2019-09-27] MEDS: PIPERACILLIN/TAZOBACTAM 3.375 G in DEXT 5% WATER 100 ML IV SCH ×4 (02:14→21:10)
[2019-09-27] MEDS: INSULIN LISPRO 100 UNITS/ML SUBCUT SCH ×4 (02:14→17:41)
[2019-09-27] MEDS: DEXT 5%/0.45% NACL 1000ML 1,000 ML IV SCH (02:17)
[2019-09-27] MEDS: BLOOD SUGAR DIAGNOSTIC STRIP TEST SCH ×4 (06:13→17:42)
[2019-09-27] MEDS: METHYLPREDNISOLONE SOD SUCC 125 MG/2 ML VIAL IV SCH ×3 (06:13→21:10)
[2019-09-27 06:15] LABS: CHLORIDE 103 mEq/L (98-107)
[2019-09-27 06:17] LABS: HEMOGLOBIN. 14.5 g/dL (14.0-18.0); MEAN CORPUSCULAR HEMOGLOBIN 28.5 pg (28.0-32.0); MEAN CORPUSCULAR VOLUME 88.2 fL (80.0-94.0); MEAN PLATELET VOLUME 8.5 fl (7.4-10.4); PLATELET 97 x1000/uL (130-400); RED CELL DISTRIBUTION WIDTH 14.9 % (11.6-14.6)
[2019-09-27] MEDS: FUROSEMIDE 40MG/4ML VIAL IVP SCH ×2 (07:55→17:37)
[2019-09-27] MEDS: FAMOTIDINE 20MG/2ML VIAL IV SCH ×2 (09:27→21:10)
[2019-09-27] MEDS: INSULIN GLARGINE UD 100 UNITS/ML SYR SUBCUT SCH (09:42)
[2019-09-27 09:55] LABS: BG BASE EXCESS 8.6 mmol/L (-2.0-2.0); BG CARBOXYHEMOGLOBIN 0.6 % (0.5-1.5); BG DEOXYHEMOGLOBIN 3.5 % (0.0-5.0); BG HCO3 ACT 35.6 mmol/L (22.0-26.0); BG METHEMOGLOBIN 0.5 % (0.0-1.5); BG OXYGEN SATURATION 96.5 % (92.0-98.5); BG OXYHEMOGLOBIN 95.4 % (94.0-97.0); BG PH 7.406 (7.350-7.450); BG PO2 84.1 mmHg (75.0-100.0); BG SAMPLE SITE RIGHT RADIAL; BG TIDAL VOLUME(mL) 550 mL; BG TOTAL HEMOGLOBIN 15.6 g/dL (12.0-18.0); BG VENT MODE VENT - A/C; BG VENT RATE 16 set
[2019-09-27 11:34] LABS: BG BASE EXCESS 8.2 mmol/L (-2.0-2.0); BG CARBOXYHEMOGLOBIN 0.6 % (0.5-1.5); BG DEOXYHEMOGLOBIN 3.7 % (0.0-5.0); BG HCO3 ACT 35.3 mmol/L (22.0-26.0); BG METHEMOGLOBIN 0.4 % (0.0-1.5); BG OXYGEN SATURATION 96.3 % (92.0-98.5); BG OXYHEMOGLOBIN 95.3 % (94.0-97.0); BG PCO2 58.4 mmHg (35.0-45.0); BG PH 7.399 (7.350-7.450); BG SAMPLE SITE RIGHT RADIAL; BG TIDAL VOLUME(mL) 550 mL; BG TOTAL HEMOGLOBIN 15.2 g/dL (12.0-18.0); BG VENT MODE VENT - SIMV; BG VENT RATE 10 set
[2019-09-27 14:57] LABS: BG BASE EXCESS 8.7 mmol/L (-2.0-2.0); BG CARBOXYHEMOGLOBIN 0.3 % (0.5-1.5); BG HCO3 ACT 35.6 mmol/L (22.0-26.0); BG METHEMOGLOBIN 0.3 % (0.0-1.5); BG OXYHEMOGLOBIN 96.4 % (94.0-97.0); BG PCO2 57.5 mmHg (35.0-45.0); BG PO2 91.5 mmHg (75.0-100.0); BG SAMPLE SITE RIGHT RADIAL; BG TIDAL VOLUME(mL) 550 mL; BG TOTAL HEMOGLOBIN 15.4 g/dL (12.0-18.0); BG VENT MODE VENT - SIMV; BG VENT RATE 8 set
[2019-09-27] MEDS: METOCLOPRAMIDE HCL 10MG/2ML VIAL IV SCH (17:38)
[2019-09-28] VITALS (61 sets, daily range): BP systolic 96–174; BP diastolic 51–121
[2019-09-28] MEDS: DEXT 5%/0.45% NACL 1000ML 1,000 ML IV SCH ×2 (01:00→17:08)
[2019-09-28] MEDS: IPRATROPIUM/ALBUTEROL 0.5-3(2.5)MG/3ML NEB HHN SCH ×5 (01:01→21:32)
[2019-09-28] MEDS: PIPERACILLIN/TAZOBACTAM 3.375 G in DEXT 5% WATER 100 ML IV SCH ×4 (03:57→22:14)
[2019-09-28] MEDS: METOCLOPRAMIDE HCL 10MG/2ML VIAL IV SCH ×4 (03:57→16:52)
[2019-09-28] MEDS: METHYLPREDNISOLONE SOD SUCC 125 MG/2 ML VIAL IV SCH (05:30)
[2019-09-28] MEDS: INSULIN LISPRO 100 UNITS/ML SUBCUT SCH ×3 (05:34→18:00)
[2019-09-28] MEDS: BLOOD SUGAR DIAGNOSTIC STRIP TEST SCH ×3 (05:34→17:08)
[2019-09-28 07:17] LABS: PLATELET ESTIMATE SLIGHTLY DECREASED
[2019-09-28] MEDS: FUROSEMIDE 40MG/4ML VIAL IVP SCH ×2 (08:07→16:52)
[2019-09-28] MEDS: FAMOTIDINE 20MG/2ML VIAL IV SCH ×2 (08:07→20:36)
[2019-09-28 08:44] LABS: BG BASE EXCESS 10.3 mmol/L (-2.0-2.0); BG CARBOXYHEMOGLOBIN 0.7 % (0.5-1.5); BG DEOXYHEMOGLOBIN 2.2 % (0.0-5.0); BG FRACTION INSPIRED OXYGEN 35; BG HCO3 ACT 37.2 mmol/L (22.0-26.0); BG METHEMOGLOBIN 0.5 % (0.0-1.5); BG OXYGEN SATURATION 97.8 % (92.0-98.5); BG OXYHEMOGLOBIN 96.6 % (94.0-97.0); BG PCO2 57.5 mmHg (35.0-45.0); BG PH 7.429 (7.350-7.450); BG PO2 101.6 mmHg (75.0-100.0); BG PRESSURE SUPPORT 14; BG SAMPLE SITE RIGHT RADIAL; BG TIDAL VOLUME(mL) 550 mL; BG TOTAL HEMOGLOBIN 15.9 g/dL (12.0-18.0); BG VENT MODE VENT - SIMV; BG VENT RATE 8 set
[2019-09-28] MEDS: INSULIN GLARGINE UD 100 UNITS/ML SYR SUBCUT SCH ×2 (09:58)
[2019-09-28] MEDS: LOSARTAN POTASSIUM 25 MG TABLET PO SCH ×2 (11:33→21:00)
[2019-09-28] MEDS: METHYLPREDNISOLONE SOD SUCC 40 MG/ML VIAL IV SCH (16:52)
[2019-09-28] MEDS: LORAZEPAM 2MG/ML CPJ IV PRN (16:56)
[2019-09-28] MEDS ORDERED: METOPROLOL TARTRATE 5MG/5ML VIAL IV NR (18:30)
[2019-09-28] MEDS: NEBIVOLOL HCL 5 MG TABLET PO SCH (18:50)
[2019-09-28] MEDS: QUETIAPINE FUMARATE 25MG TABLET PO SCH (20:36)
[2019-09-28] MEDS: MIDAZOLAM HCL 100 MG in DEXT 5% WATER 80 ML IV PRN (20:36)
[2019-09-28] MEDS ORDERED: NEBIVOLOL HCL 5 MG TABLET PO SCH ×2 (21:00)
[2019-09-29] VITALS (91 sets, daily range): BP systolic 91–163; BP diastolic 47–120
[2019-09-29] MEDS: IPRATROPIUM/ALBUTEROL 0.5-3(2.5)MG/3ML NEB HHN SCH ×6 (00:01→20:42)
[2019-09-29] MEDS: INSULIN GLARGINE UD 100 UNITS/ML SYR SUBCUT SCH ×3 (00:02→22:11)
[2019-09-29] MEDS: BLOOD SUGAR DIAGNOSTIC STRIP TEST SCH ×5 (00:02→23:30)
[2019-09-29] MEDS: METOCLOPRAMIDE HCL 10MG/2ML VIAL IV SCH ×5 (00:03→23:30)
[2019-09-29] MEDS: PIPERACILLIN/TAZOBACTAM 3.375 G in DEXT 5% WATER 100 ML IV SCH ×5 (04:25→22:11)
[2019-09-29] MEDS: INSULIN LISPRO 100 UNITS/ML SUBCUT SCH ×5 (06:00→23:30)
[2019-09-29] MEDS: METHYLPREDNISOLONE SOD SUCC 40 MG/ML VIAL IV SCH ×2 (06:15→17:49)
[2019-09-29] MEDS: QUETIAPINE FUMARATE 25MG TABLET PO SCH ×2 (06:15→17:50)
[2019-09-29 06:36] LABS: HEMATOCRIT. 43.6 % (42.0-52.0); HEMOGLOBIN. 14.2 g/dL (14.0-18.0); MEAN CORPUSCULAR HEMOGLOBIN 28.6 pg (28.0-32.0); MEAN PLATELET VOLUME 8.5 fl (7.4-10.4); PLATELET 54 x1000/uL (130-400); RED BLOOD CELL COUNT 4.96 mill/uL (4.7-6.1); RED CELL DISTRIBUTION WIDTH 15.4 % (11.6-14.6)
[2019-09-29 06:54] LABS: CHLORIDE 104 mEq/L (98-107)
[2019-09-29] MEDS: FUROSEMIDE 40MG/4ML VIAL IVP SCH ×2 (07:24→17:49)
[2019-09-29 07:45] LABS: PLATELET ESTIMATE DECREASED
[2019-09-29] MEDS: FAMOTIDINE 20MG/2ML VIAL IV SCH ×2 (08:15→21:12)
[2019-09-29] MEDS: LOSARTAN POTASSIUM 25 MG TABLET PO SCH ×2 (08:15→21:12)
[2019-09-29] MEDS: NEBIVOLOL HCL 5 MG TABLET PO SCH ×2 (08:15→21:13)
[2019-09-29] MEDS ORDERED: AMIODARONE HCL 150 MG in DEXT 5% WATER 100 ML IV NR (10:30)
[2019-09-29] MEDS: DEXT 5%/0.45% NACL 1000ML 1,000 ML IV SCH (15:35)
[2019-09-29] MEDS ORDERED: IOHEXOL-350 100 ML BOTTLE ONE (17:11)
[2019-09-29] MEDS ORDERED: ARGATROBAN XX SCH (18:45)
[2019-09-29] MEDS: ARGATROBAN 250 MG in SODIUM CHLORIDE 0.9% 247.5 ML IV SCH (20:20)
[2019-09-30] VITALS (55 sets, daily range): BP systolic 87–155; BP diastolic 47–103
[2019-09-30] MEDS: IPRATROPIUM/ALBUTEROL 0.5-3(2.5)MG/3ML NEB HHN SCH ×6 (00:21→21:45)
[2019-09-30] MEDS: QUETIAPINE FUMARATE 25MG TABLET PO SCH ×2 (05:06→17:15)
[2019-09-30] MEDS: METHYLPREDNISOLONE SOD SUCC 40 MG/ML VIAL IV SCH ×2 (05:06→17:14)
[2019-09-30] MEDS: METOCLOPRAMIDE HCL 10MG/2ML VIAL IV SCH ×3 (05:06→17:14)
[2019-09-30] MEDS: INSULIN LISPRO 100 UNITS/ML SUBCUT SCH ×3 (06:00→17:21)
[2019-09-30] MEDS: BLOOD SUGAR DIAGNOSTIC STRIP TEST SCH ×3 (06:00→17:21)
[2019-09-30 06:24] LABS: BASOPHILS % 0.1 % (0.0-2.0); HEMATOCRIT. 42.5 % (42.0-52.0); HEMOGLOBIN. 13.8 g/dL (14.0-18.0); LYMPHOCYTES % 9.3 % (20.0-50.0); MEAN CORPUSCULAR HEMOGLOBIN 28.6 pg (28.0-32.0); MEAN CORPUSCULAR VOLUME 88.2 fL (80.0-94.0); MEAN PLATELET VOLUME 8.3 fl (7.4-10.4); MONOCYTES % 5.1 % (2.0-8.0); NEUTROPHILS % 85.5 % (40.0-76.0); PLATELET 80 x1000/uL (130-400); RED BLOOD CELL COUNT 4.81 mill/uL (4.7-6.1)
[2019-09-30 06:26] LABS: CHLORIDE 103 mEq/L (98-107)
[2019-09-30] MEDS: FUROSEMIDE 40MG/4ML VIAL IVP SCH ×2 (08:25→17:14)
[2019-09-30] MEDS: LOSARTAN POTASSIUM 25 MG TABLET PO SCH ×2 (08:25→20:15)
[2019-09-30] MEDS: NEBIVOLOL HCL 5 MG TABLET PO SCH ×2 (08:25→20:15)
[2019-09-30] MEDS: FAMOTIDINE 20MG/2ML VIAL IV SCH ×2 (08:25→20:15)
[2019-09-30 08:44] LABS: BG BASE EXCESS 7.4 mmol/L (-2.0-2.0); BG CARBOXYHEMOGLOBIN 0.7 % (0.5-1.5); BG DEOXYHEMOGLOBIN 1.5 % (0.0-5.0); BG FRACTION INSPIRED OXYGEN 40; BG HCO3 ACT 33.4 mmol/L (22.0-26.0); BG METHEMOGLOBIN 0.4 % (0.0-1.5); BG OXYGEN SATURATION 98.5 % (92.0-98.5); BG OXYHEMOGLOBIN 97.4 % (94.0-97.0); BG PCO2 52.7 mmHg (35.0-45.0); BG PO2 122.2 mmHg (75.0-100.0); BG SAMPLE SITE RIGHT RADIAL; BG TIDAL VOLUME(mL) 500 mL; BG TOTAL HEMOGLOBIN 14.2 g/dL (12.0-18.0); BG VENT MODE VENT - A/C; BG VENT RATE 14 set
[2019-09-30] MEDS: INSULIN GLARGINE UD 100 UNITS/ML SYR SUBCUT SCH ×2 (10:22→21:29)
[2019-09-30] MEDS ORDERED: DOPAMINE 400MG/250ML PREMIX 250 ML IV ONE (12:08)
[2019-09-30] MEDS: DEXT 5%/0.45% NACL 1000ML 1,000 ML IV SCH (13:07)
[2019-09-30] MEDS: MEROPENEM 1,000 MG in SODIUM CHLORIDE 0.9% 100 ML IV SCH ×2 (13:13→21:28)
[2019-09-30] MEDS: ARGATROBAN 250 MG in SODIUM CHLORIDE 0.9% 247.5 ML IV SCH (14:55)
[2019-09-30] MEDS: MIDAZOLAM HCL 100 MG in DEXT 5% WATER 80 ML IV PRN (18:02)
[2019-10-01] VITALS (73 sets, daily range): BP systolic 89–137; BP diastolic 41–98
[2019-10-01] MEDS: METOCLOPRAMIDE HCL 10MG/2ML VIAL IV SCH ×4 (00:09→17:40)
[2019-10-01] MEDS: BLOOD SUGAR DIAGNOSTIC STRIP TEST SCH ×4 (00:09→17:40)
[2019-10-01] MEDS: IPRATROPIUM/ALBUTEROL 0.5-3(2.5)MG/3ML NEB HHN SCH ×6 (01:18→20:34)
[2019-10-01] MEDS: INSULIN LISPRO 100 UNITS/ML SUBCUT SCH ×4 (06:00→17:44)
[2019-10-01] MEDS: MEROPENEM 1,000 MG in SODIUM CHLORIDE 0.9% 100 ML IV SCH ×3 (06:16→21:09)
[2019-10-01] MEDS: METHYLPREDNISOLONE SOD SUCC 40 MG/ML VIAL IV SCH ×2 (06:16→17:40)
[2019-10-01] MEDS: QUETIAPINE FUMARATE 25MG TABLET PO SCH ×2 (06:16→17:40)
[2019-10-01] MEDS: FUROSEMIDE 40MG/4ML VIAL IVP SCH ×2 (06:17→17:40)
[2019-10-01] MEDS: DEXT 5%/0.45% NACL 1000ML 1,000 ML IV SCH (06:34)
[2019-10-01 07:41] LABS: HEMOGLOBIN 13.7 g/dL (14.0-18.0); MEAN CORPUSCULAR HEMOGLOBIN 28.7 pg (28.0-32.0); MEAN CORPUSCULAR VOLUME 87.8 fL (80.0-94.0); PLATELET 73 x1000/uL (130-400); RED BLOOD CELL COUNT 4.78 mill/uL (4.7-6.1); RED CELL DISTRIBUTION WIDTH 15.2 % (11.6-14.6)
[2019-10-01 07:46] LABS: CHLORIDE 104 mEq/L (98-107)
[2019-10-01] MEDS: FAMOTIDINE 20MG/2ML VIAL IV SCH ×2 (08:17→21:10)
[2019-10-01] MEDS: LOSARTAN POTASSIUM 25 MG TABLET PO SCH ×2 (08:17→21:00)
[2019-10-01] MEDS: NEBIVOLOL HCL 5 MG TABLET PO SCH ×2 (08:18→21:10)
[2019-10-01] MEDS: ARGATROBAN 250 MG in SODIUM CHLORIDE 0.9% 247.5 ML IV SCH (08:31)
[2019-10-01] MEDS: INSULIN GLARGINE UD 100 UNITS/ML SYR SUBCUT SCH ×2 (09:48→22:42)
[2019-10-01 12:16] LABS: HEMOGLOBIN 13.3 g/dL (14.0-18.0); MEAN CORPUSCULAR HEMOGLOBIN 28.5 pg (28.0-32.0); PLATELET 69 x1000/uL (130-400); RED BLOOD CELL COUNT 4.67 mill/uL (4.7-6.1); RED CELL DISTRIBUTION WIDTH 15.1 % (11.6-14.6)
[2019-10-02] VITALS (51 sets, daily range): BP systolic 89–156; BP diastolic 49–103
[2019-10-02] MEDS: BLOOD SUGAR DIAGNOSTIC STRIP TEST SCH ×4 (00:17→17:35)
[2019-10-02] MEDS: METOCLOPRAMIDE HCL 10MG/2ML VIAL IV SCH ×4 (00:22→17:42)
[2019-10-02] MEDS: INSULIN LISPRO 100 UNITS/ML SUBCUT SCH ×4 (00:23→17:35)
[2019-10-02] MEDS: IPRATROPIUM/ALBUTEROL 0.5-3(2.5)MG/3ML NEB HHN SCH ×6 (00:29→20:27)
[2019-10-02] MEDS: DEXT 5%/0.45% NACL 1000ML 1,000 ML IV SCH ×2 (03:40→22:35)
[2019-10-02] MEDS: MIDAZOLAM HCL 100 MG in DEXT 5% WATER 80 ML IV PRN (03:41)
[2019-10-02] MEDS: ARGATROBAN 250 MG in SODIUM CHLORIDE 0.9% 247.5 ML IV SCH ×2 (03:42→22:34)
[2019-10-02 05:43] LABS: BASOPHILS % 0.3 % (0.0-2.0); HEMATOCRIT. 39.6 % (42.0-52.0); HEMOGLOBIN. 13.2 g/dL (14.0-18.0); MEAN CORPUSCULAR HEMOGLOBIN 29.1 pg (28.0-32.0); MEAN CORPUSCULAR VOLUME 87.5 fL (80.0-94.0); MEAN PLATELET VOLUME 8.4 fl (7.4-10.4); MONOCYTES % 6.1 % (2.0-8.0); NEUTROPHILS % 84.6 % (40.0-76.0); PLATELET 65 x1000/uL (130-400); RED BLOOD CELL COUNT 4.52 mill/uL (4.7-6.1); RED CELL DISTRIBUTION WIDTH 14.6 % (11.6-14.6)
[2019-10-02] MEDS: MEROPENEM 1,000 MG in SODIUM CHLORIDE 0.9% 100 ML IV SCH ×3 (05:47→21:06)
[2019-10-02] MEDS: METHYLPREDNISOLONE SOD SUCC 40 MG/ML VIAL IV SCH ×2 (05:47→17:42)
[2019-10-02] MEDS: QUETIAPINE FUMARATE 25MG TABLET PO SCH ×2 (05:48→17:42)
[2019-10-02 06:04] LABS: CHLORIDE 105 mEq/L (98-107)
[2019-10-02 07:35] LABS: BG BASE EXCESS 9.8 mmol/L (-2.0-2.0); BG CARBOXYHEMOGLOBIN 0.8 % (0.5-1.5); BG FRACTION INSPIRED OXYGEN 40; BG HCO3 ACT 36.1 mmol/L (22.0-26.0); BG METHEMOGLOBIN 0.3 % (0.0-1.5); BG OXYHEMOGLOBIN 97.9 % (94.0-97.0); BG PCO2 56.1 mmHg (35.0-45.0); BG PH 7.427 (7.350-7.450); BG PO2 150.3 mmHg (75.0-100.0); BG SAMPLE SITE RIGHT RADIAL; BG TIDAL VOLUME(mL) 500 mL; BG TOTAL HEMOGLOBIN 13.8 g/dL (12.0-18.0); BG VENT MODE VENT - A/C; BG VENT RATE 14 set
[2019-10-02] MEDS: NEBIVOLOL HCL 5 MG TABLET PO SCH ×2 (08:08→21:06)
[2019-10-02] MEDS: FUROSEMIDE 40MG/4ML VIAL IVP SCH ×2 (08:08→17:48)
[2019-10-02] MEDS: FAMOTIDINE 20MG/2ML VIAL IV SCH ×2 (08:08→21:07)
[2019-10-02] MEDS: LOSARTAN POTASSIUM 25 MG TABLET PO SCH ×2 (08:08→21:57)
[2019-10-02] MEDS: INSULIN GLARGINE UD 100 UNITS/ML SYR SUBCUT SCH ×2 (10:34→21:06)
[2019-10-02 13:41] LABS: BG BASE EXCESS 7.8 mmol/L (-2.0-2.0); BG CARBOXYHEMOGLOBIN 0.7 % (0.5-1.5); BG DEOXYHEMOGLOBIN 2.3 % (0.0-5.0); BG FRACTION INSPIRED OXYGEN 40; BG HCO3 ACT 33.7 mmol/L (22.0-26.0); BG METHEMOGLOBIN 0.3 % (0.0-1.5); BG OXYGEN SATURATION 97.7 % (92.0-98.5); BG OXYHEMOGLOBIN 96.7 % (94.0-97.0); BG PCO2 52.2 mmHg (35.0-45.0); BG PH 7.428 (7.350-7.450); BG PO2 103.2 mmHg (75.0-100.0); BG PRESSURE SUPPORT 14; BG SAMPLE SITE RIGHT RADIAL; BG TIDAL VOLUME(mL) 500 mL; BG TOTAL HEMOGLOBIN 13.7 g/dL (12.0-18.0); BG VENT MODE VENT - SIMV; BG VENT RATE 8 set
[2019-10-02 16:55] LABS: BG BASE EXCESS 8.7 mmol/L (-2.0-2.0); BG CARBOXYHEMOGLOBIN 0.4 % (0.5-1.5); BG DEOXYHEMOGLOBIN 2.1 % (0.0-5.0); BG FRACTION INSPIRED OXYGEN 40; BG HCO3 ACT 35.2 mmol/L (22.0-26.0); BG METHEMOGLOBIN 0.4 % (0.0-1.5); BG OXYGEN SATURATION 97.9 % (92.0-98.5); BG OXYHEMOGLOBIN 97.1 % (94.0-97.0); BG PCO2 55.6 mmHg (35.0-45.0); BG PH 7.419 (7.350-7.450); BG PO2 112.3 mmHg (75.0-100.0); BG PRESSURE SUPPORT 14; BG SAMPLE SITE RIGHT RADIAL; BG TIDAL VOLUME(mL) 500 mL; BG TOTAL HEMOGLOBIN 14.4 g/dL (12.0-18.0); BG VENT MODE VENT - SIMV; BG VENT RATE 6 set
[2019-10-02] MEDS: DIPHENHYDRAMINE 50MG/ML VIAL IV PRN (22:34)
[2019-10-03] VITALS (47 sets, daily range): BP systolic 97–161; BP diastolic 48–91
[2019-10-03] MEDS: BLOOD SUGAR DIAGNOSTIC STRIP TEST SCH ×5 (00:13→23:43)
[2019-10-03] MEDS: METOCLOPRAMIDE HCL 10MG/2ML VIAL IV SCH ×5 (00:18→23:41)
[2019-10-03] MEDS: INSULIN LISPRO 100 UNITS/ML SUBCUT SCH ×5 (00:19→23:43)
[2019-10-03] MEDS: IPRATROPIUM/ALBUTEROL 0.5-3(2.5)MG/3ML NEB HHN SCH ×6 (00:34→19:49)
[2019-10-03] MEDS: ACETAMINOPHEN 325MG TABLET PO PRN ×2 (05:27→23:59)
[2019-10-03] MEDS: QUETIAPINE FUMARATE 25MG TABLET PO SCH ×2 (05:27→18:26)
[2019-10-03] MEDS: METHYLPREDNISOLONE SOD SUCC 40 MG/ML VIAL IV SCH ×2 (05:27→18:26)
[2019-10-03] MEDS: MEROPENEM 1,000 MG in SODIUM CHLORIDE 0.9% 100 ML IV SCH ×3 (05:55→21:51)
[2019-10-03 07:13] LABS: HEMATOCRIT. 42.6 % (42.0-52.0); HEMOGLOBIN. 13.7 g/dL (14.0-18.0); MEAN CORPUSCULAR HEMOGLOBIN 28.4 pg (28.0-32.0); MEAN CORPUSCULAR VOLUME 88.3 fL (80.0-94.0); MEAN PLATELET VOLUME 8.7 fl (7.4-10.4); PLATELET 87 x1000/uL (130-400); RED BLOOD CELL COUNT 4.82 mill/uL (4.7-6.1); RED CELL DISTRIBUTION WIDTH 15.1 % (11.6-14.6)
[2019-10-03 07:35] LABS: CHLORIDE 104 mEq/L (98-107)
[2019-10-03 08:31] LABS: BG BASE EXCESS 4.3 mmol/L (-2.0-2.0); BG CARBOXYHEMOGLOBIN 0.8 % (0.5-1.5); BG DEOXYHEMOGLOBIN 1.6 % (0.0-5.0); BG FRACTION INSPIRED OXYGEN 40; BG HCO3 ACT 30.9 mmol/L (22.0-26.0); BG METHEMOGLOBIN 0.5 % (0.0-1.5); BG OXYGEN SATURATION 98.4 % (92.0-98.5); BG OXYHEMOGLOBIN 97.1 % (94.0-97.0); BG PCO2 53.9 mmHg (35.0-45.0); BG PH 7.376 (7.350-7.450); BG PO2 126.7 mmHg (75.0-100.0); BG PRESSURE SUPPORT 12; BG SAMPLE SITE RIGHT RADIAL; BG TIDAL VOLUME(mL) 500 mL; BG TOTAL HEMOGLOBIN 14.6 g/dL (12.0-18.0); BG VENT MODE VENT - SIMV; BG VENT RATE 6 set
[2019-10-03] MEDS: FAMOTIDINE 20MG/2ML VIAL IV SCH ×2 (08:46→20:51)
[2019-10-03] MEDS: FUROSEMIDE 40MG/4ML VIAL IVP SCH ×2 (08:46→18:26)
[2019-10-03] MEDS: NEBIVOLOL HCL 5 MG TABLET PO SCH ×2 (08:48→20:52)
[2019-10-03] MEDS: LOSARTAN POTASSIUM 25 MG TABLET PO SCH ×2 (08:48→20:52)
[2019-10-03] MEDS: INSULIN GLARGINE UD 100 UNITS/ML SYR SUBCUT SCH ×2 (11:13→21:52)
[2019-10-03 11:24] LABS: PLATELET ESTIMATE SLIGHTLY DECREASED
[2019-10-03] MEDS: ARGATROBAN 250 MG in SODIUM CHLORIDE 0.9% 247.5 ML IV SCH (13:30)
[2019-10-03] MEDS: DEXT 5%/0.45% NACL 1000ML 1,000 ML IV SCH (18:26)
[2019-10-04] VITALS (44 sets, daily range): BP systolic 93–162; BP diastolic 59–113
[2019-10-04] MEDS: IPRATROPIUM/ALBUTEROL 0.5-3(2.5)MG/3ML NEB HHN SCH ×6 (00:05→20:10)
[2019-10-04 05:09] LABS: HEMATOCRIT. 43.2 % (42.0-52.0); HEMOGLOBIN. 14.2 g/dL (14.0-18.0); MEAN CORPUSCULAR HEMOGLOBIN 29.1 pg (28.0-32.0); MEAN CORPUSCULAR VOLUME 88.8 fL (80.0-94.0); MEAN PLATELET VOLUME 8.4 fl (7.4-10.4); PLATELET 94 x1000/uL (130-400); RED BLOOD CELL COUNT 4.87 mill/uL (4.7-6.1); RED CELL DISTRIBUTION WIDTH 14.9 % (11.6-14.6)
[2019-10-04] MEDS: QUETIAPINE FUMARATE 25MG TABLET PO SCH ×2 (05:38→17:42)
[2019-10-04] MEDS: BLOOD SUGAR DIAGNOSTIC STRIP TEST SCH ×4 (05:38→23:15)
[2019-10-04] MEDS: METOCLOPRAMIDE HCL 10MG/2ML VIAL IV SCH ×3 (05:38→17:40)
[2019-10-04] MEDS: MEROPENEM 1,000 MG in SODIUM CHLORIDE 0.9% 100 ML IV SCH ×3 (05:38→21:23)
[2019-10-04] MEDS: METHYLPREDNISOLONE SOD SUCC 40 MG/ML VIAL IV SCH ×2 (05:38→17:41)
[2019-10-04 05:39] LABS: CHLORIDE 103 mEq/L (98-107)
[2019-10-04] MEDS: INSULIN LISPRO 100 UNITS/ML SUBCUT SCH ×4 (05:39→23:16)
[2019-10-04] MEDS: FAMOTIDINE 20MG/2ML VIAL IV SCH ×2 (09:35→21:23)
[2019-10-04] MEDS: LOSARTAN POTASSIUM 25 MG TABLET PO SCH ×2 (09:36→21:23)
[2019-10-04] MEDS: INSULIN GLARGINE UD 100 UNITS/ML SYR SUBCUT SCH ×2 (09:38→22:00)
[2019-10-04] MEDS: NEBIVOLOL HCL 5 MG TABLET PO SCH ×2 (09:39→21:23)
[2019-10-04] MEDS: ARGATROBAN 250 MG in SODIUM CHLORIDE 0.9% 247.5 ML IV SCH (09:46)
[2019-10-04] MEDS: FUROSEMIDE 40MG/4ML VIAL IVP SCH ×2 (10:06→17:40)
[2019-10-04 10:59] LABS: BG BASE EXCESS 9.2 mmol/L (-2.0-2.0); BG CARBOXYHEMOGLOBIN 0.2 % (0.5-1.5); BG DEOXYHEMOGLOBIN 1.9 % (0.0-5.0); BG FRACTION INSPIRED OXYGEN 40; BG HCO3 ACT 36.3 mmol/L (22.0-26.0); BG METHEMOGLOBIN 0.5 % (0.0-1.5); BG OXYGEN SATURATION 98.1 % (92.0-98.5); BG OXYHEMOGLOBIN 97.4 % (94.0-97.0); BG PCO2 59.5 mmHg (35.0-45.0); BG PH 7.403 (7.350-7.450); BG PO2 126.7 mmHg (75.0-100.0); BG PRESSURE SUPPORT 14; BG SAMPLE SITE RIGHT RADIAL; BG TIDAL VOLUME(mL) 500 mL; BG TOTAL HEMOGLOBIN 14.5 g/dL (12.0-18.0); BG VENT MODE VENT - SIMV; BG VENT RATE 6 set
[2019-10-04 14:36] LABS: BG BASE EXCESS 6.3 mmol/L (-2.0-2.0); BG CARBOXYHEMOGLOBIN 0.6 % (0.5-1.5); BG DEOXYHEMOGLOBIN 3.1 % (0.0-5.0); BG FRACTION INSPIRED OXYGEN 40; BG HCO3 ACT 32.7 mmol/L (22.0-26.0); BG METHEMOGLOBIN 0.4 % (0.0-1.5); BG OXYGEN SATURATION 96.9 % (92.0-98.5); BG OXYHEMOGLOBIN 95.9 % (94.0-97.0); BG PCO2 53.6 mmHg (35.0-45.0); BG PH 7.403 (7.350-7.450); BG PO2 89.6 mmHg (75.0-100.0); BG SAMPLE SITE RIGHT RADIAL; BG TOTAL HEMOGLOBIN 14.5 g/dL (12.0-18.0); BG VENT MODE VENT - CPAP
[2019-10-04] MEDS: DEXT 5%/0.45% NACL 1000ML 1,000 ML IV SCH (15:58)
[2019-10-04] MEDS ORDERED: ARGATROBAN 250 MG in SODIUM CHLORIDE 0.9% 247.5 ML IV SCH (16:00)
[2019-10-04] MEDS ORDERED: RACEPINEPHRINE 2.25% 0.5ML NEB VIAL HHN NR (16:15)
[2019-10-04] MEDS ORDERED: RACEPINEPHRINE 2.25% 0.5ML NEB VIAL ONE (16:34)
[2019-10-04 17:59] LABS: BG BASE EXCESS 9.2 mmol/L (-2.0-2.0); BG BILEVEL POS AIRWAY PRESSURE 15/5; BG CARBOXYHEMOGLOBIN 0.4 % (0.5-1.5); BG DEOXYHEMOGLOBIN 2.9 % (0.0-5.0); BG FRACTION INSPIRED OXYGEN 40; BG HCO3 ACT 36.2 mmol/L (22.0-26.0); BG METHEMOGLOBIN 0.5 % (0.0-1.5); BG OXYGEN SATURATION 97.1 % (92.0-98.5); BG OXYHEMOGLOBIN 96.2 % (94.0-97.0); BG PCO2 58.5 mmHg (35.0-45.0); BG PH 7.409 (7.350-7.450); BG SAMPLE SITE RIGHT RADIAL; BG TOTAL HEMOGLOBIN 15.1 g/dL (12.0-18.0); BG VENT MODE MASK - CPAP
[2019-10-05] VITALS (47 sets, daily range): BP systolic 103–148; BP diastolic 55–105
[2019-10-05] MEDS: METOCLOPRAMIDE HCL 10MG/2ML VIAL IV SCH ×4 (00:31→17:40)
[2019-10-05] MEDS: IPRATROPIUM/ALBUTEROL 0.5-3(2.5)MG/3ML NEB HHN SCH ×6 (00:34→20:19)
[2019-10-05 04:19] LABS: PLATELET ESTIMATE DECREASED
[2019-10-05] MEDS: METHYLPREDNISOLONE SOD SUCC 40 MG/ML VIAL IV SCH ×2 (05:53→17:40)
[2019-10-05] MEDS: QUETIAPINE FUMARATE 25MG TABLET PO SCH ×2 (05:54→17:41)
[2019-10-05] MEDS: MEROPENEM 1,000 MG in SODIUM CHLORIDE 0.9% 100 ML IV SCH ×3 (05:55→21:36)
[2019-10-05] MEDS: INSULIN LISPRO 100 UNITS/ML SUBCUT SCH ×4 (06:00→23:40)
[2019-10-05] MEDS: BLOOD SUGAR DIAGNOSTIC STRIP TEST SCH ×4 (06:09→23:26)
[2019-10-05] MEDS: FUROSEMIDE 40MG/4ML VIAL IVP SCH ×2 (06:16→17:40)
[2019-10-05 06:27] LABS: CHLORIDE 102 mEq/L (98-107)
[2019-10-05 06:37] LABS: BASOPHILS % 0.2 % (0.0-2.0); EOSINOPHILS % 0.1 % (0.0-5.0); HEMATOCRIT. 42.3 % (42.0-52.0); HEMOGLOBIN. 13.8 g/dL (14.0-18.0); LYMPHOCYTES % 10.3 % (20.0-50.0); MEAN CORPUSCULAR HEMOGLOBIN 28.6 pg (28.0-32.0); MEAN CORPUSCULAR VOLUME 87.9 fL (80.0-94.0); MEAN PLATELET VOLUME 8.3 fl (7.4-10.4); MONOCYTES % 10.3 % (2.0-8.0); NEUTROPHILS % 79.1 % (40.0-76.0); PLATELET 81 x1000/uL (130-400); RED BLOOD CELL COUNT 4.81 mill/uL (4.7-6.1); RED CELL DISTRIBUTION WIDTH 14.8 % (11.6-14.6)
[2019-10-05] MEDS: LOSARTAN POTASSIUM 25 MG TABLET PO SCH ×2 (08:28→21:36)
[2019-10-05] MEDS: FAMOTIDINE 20MG/2ML VIAL IV SCH ×2 (08:28→21:36)
[2019-10-05] MEDS: NEBIVOLOL HCL 5 MG TABLET PO SCH ×2 (08:31→21:37)
[2019-10-05] MEDS: DEXT 5%/0.45% NACL 1000ML 1,000 ML IV SCH (11:03)
[2019-10-05] MEDS: INSULIN GLARGINE UD 100 UNITS/ML SYR SUBCUT SCH ×2 (11:04→23:33)
[2019-10-05] MEDS: APIXABAN 5 MG TABLET PO SCH (17:41)
[2019-10-05 18:00] LABS: BG BASE EXCESS 7.6 mmol/L (-2.0-2.0); BG CARBOXYHEMOGLOBIN 0.8 % (0.5-1.5); BG DEOXYHEMOGLOBIN 2.8 % (0.0-5.0); BG FRACTION INSPIRED OXYGEN 36; BG METHEMOGLOBIN 0.4 % (0.0-1.5); BG OXYGEN SATURATION 97.2 % (92.0-98.5); BG PCO2 54.5 mmHg (35.0-45.0); BG PH 7.413 (7.350-7.450); BG PO2 96.2 mmHg (75.0-100.0); BG SAMPLE SITE RIGHT RADIAL; BG TOTAL HEMOGLOBIN 14.5 g/dL (12.0-18.0); BG VENT MODE NASAL CANNULA
[2019-10-06] VITALS (29 sets, daily range): BP systolic 110–148; BP diastolic 47–88
[2019-10-06] MEDS: IPRATROPIUM/ALBUTEROL 0.5-3(2.5)MG/3ML NEB HHN SCH ×6 (00:13→20:22)
[2019-10-06] MEDS: METOCLOPRAMIDE HCL 10MG/2ML VIAL IV SCH ×4 (00:27→17:54)
[2019-10-06] MEDS: BLOOD SUGAR DIAGNOSTIC STRIP TEST SCH ×3 (05:18→18:18)
[2019-10-06] MEDS: INSULIN LISPRO 100 UNITS/ML SUBCUT SCH ×3 (05:19→18:00)
[2019-10-06 05:47] LABS: BASOPHILS % 0.2 % (0.0-2.0); HEMATOCRIT. 44.4 % (42.0-52.0); HEMOGLOBIN. 14.3 g/dL (14.0-18.0); LYMPHOCYTES % 7.6 % (20.0-50.0); MEAN CORPUSCULAR HEMOGLOBIN 28.5 pg (28.0-32.0); MEAN CORPUSCULAR VOLUME 88.4 fL (80.0-94.0); MEAN PLATELET VOLUME 8.4 fl (7.4-10.4); MONOCYTES % 6.6 % (2.0-8.0); NEUTROPHILS % 85.6 % (40.0-76.0); PLATELET 79 x1000/uL (130-400); RED BLOOD CELL COUNT 5.02 mill/uL (4.7-6.1); RED CELL DISTRIBUTION WIDTH 14.7 % (11.6-14.6)
[2019-10-06] MEDS: MEROPENEM 1,000 MG in SODIUM CHLORIDE 0.9% 100 ML IV SCH ×3 (06:14→21:30)
[2019-10-06] MEDS: METHYLPREDNISOLONE SOD SUCC 40 MG/ML VIAL IV SCH ×2 (06:15→17:54)
[2019-10-06] MEDS: FUROSEMIDE 40MG/4ML VIAL IVP SCH ×2 (06:15→17:54)
[2019-10-06] MEDS: QUETIAPINE FUMARATE 25MG TABLET PO SCH ×2 (06:15→17:54)
[2019-10-06 06:23] LABS: CHLORIDE 100 mEq/L (98-107)
[2019-10-06] MEDS: FAMOTIDINE 20MG/2ML VIAL IV SCH ×2 (08:04→21:31)
[2019-10-06] MEDS: APIXABAN 5 MG TABLET PO SCH ×2 (08:04→17:54)
[2019-10-06] MEDS: NEBIVOLOL HCL 5 MG TABLET PO SCH ×2 (08:05→21:31)
[2019-10-06] MEDS: LOSARTAN POTASSIUM 25 MG TABLET PO SCH ×2 (08:05→21:31)
[2019-10-06 08:26] LABS: BG BASE EXCESS 6.7 mmol/L (-2.0-2.0); BG CARBOXYHEMOGLOBIN 0.8 % (0.5-1.5); BG DEOXYHEMOGLOBIN 1.6 % (0.0-5.0); BG FRACTION INSPIRED OXYGEN 32; BG HCO3 ACT 32.1 mmol/L (22.0-26.0); BG METHEMOGLOBIN 0.4 % (0.0-1.5); BG OXYGEN SATURATION 98.4 % (92.0-98.5); BG OXYHEMOGLOBIN 97.2 % (94.0-97.0); BG PCO2 48.5 mmHg (35.0-45.0); BG PH 7.439 (7.350-7.450); BG PO2 122.5 mmHg (75.0-100.0); BG SAMPLE SITE RIGHT RADIAL; BG TOTAL HEMOGLOBIN 14.2 g/dL (12.0-18.0); BG VENT MODE NASAL CANNULA
[2019-10-06 08:45] LABS: CHLORIDE 101 mEq/L (98-107)
[2019-10-06] MEDS: INSULIN GLARGINE UD 100 UNITS/ML SYR SUBCUT SCH ×2 (10:09→21:31)
[2019-10-07] VITALS (26 sets, daily range): BP systolic 109–187; BP diastolic 38–127
[2019-10-07] MEDS: IPRATROPIUM/ALBUTEROL 0.5-3(2.5)MG/3ML NEB HHN SCH ×6 (00:16→20:24)
[2019-10-07] MEDS: METOCLOPRAMIDE HCL 10MG/2ML VIAL IV SCH ×2 (00:25→05:45)
[2019-10-07] MEDS: BLOOD SUGAR DIAGNOSTIC STRIP TEST SCH ×5 (00:25→21:43)
[2019-10-07] MEDS: METHYLPREDNISOLONE SOD SUCC 40 MG/ML VIAL IV SCH (05:45)
[2019-10-07] MEDS: MEROPENEM 1,000 MG in SODIUM CHLORIDE 0.9% 100 ML IV SCH (05:45)
[2019-10-07] MEDS: QUETIAPINE FUMARATE 25MG TABLET PO SCH ×2 (05:46→21:39)
[2019-10-07 05:56] LABS: BASOPHILS % 0.2 % (0.0-2.0); HEMATOCRIT. 42.7 % (42.0-52.0); HEMOGLOBIN. 13.9 g/dL (14.0-18.0); LYMPHOCYTES % 8.1 % (20.0-50.0); MEAN CORPUSCULAR HEMOGLOBIN 28.7 pg (28.0-32.0); MEAN PLATELET VOLUME 8.6 fl (7.4-10.4); MONOCYTES % 8.2 % (2.0-8.0); NEUTROPHILS % 83.5 % (40.0-76.0); PLATELET 88 x1000/uL (130-400); RED BLOOD CELL COUNT 4.85 mill/uL (4.7-6.1); RED CELL DISTRIBUTION WIDTH 14.6 % (11.6-14.6)
[2019-10-07] MEDS: INSULIN LISPRO 100 UNITS/ML SUBCUT SCH ×5 (06:00→21:00)
[2019-10-07 06:15] LABS: CHLORIDE 99 mEq/L (98-107)
[2019-10-07] MEDS: FUROSEMIDE 40MG/4ML VIAL IVP SCH ×2 (08:00→17:21)
[2019-10-07] MEDS: FAMOTIDINE 20MG/2ML VIAL IV SCH (08:00)
[2019-10-07] MEDS: LOSARTAN POTASSIUM 25 MG TABLET PO SCH (08:01)
[2019-10-07] MEDS: APIXABAN 5 MG TABLET PO SCH ×2 (08:01→17:22)
[2019-10-07] MEDS: NEBIVOLOL HCL 5 MG TABLET PO SCH ×2 (08:01→21:38)
[2019-10-07] MEDS ORDERED: HYDRALAZINE 20MG/ML VIAL IV PRN (10:30)
[2019-10-07] MEDS: INSULIN GLARGINE UD 100 UNITS/ML SYR SUBCUT SCH ×2 (10:39→21:42)
[2019-10-07] MEDS: POLYETHYLENE GLYCOL 3350 (17GM) 1 DOSE PACK PO PRN (10:40)
[2019-10-07] MEDS: NIFEDIPINE XL 30MG TAB PO SCH (17:22)
[2019-10-07] MEDS: DEXTROSE 50% WATER 50ML SYRINGE IV PRN ×2 (17:34→21:55)
[2019-10-07] MEDS: LOSARTAN POTASSIUM 50 MG TABLET PO SCH (21:38)
[2019-10-07] MEDS: FAMOTIDINE 20MG TABLET PO SCH (21:39)
[2019-10-07] MEDS: DIPHENHYDRAMINE 50MG/ML VIAL IV PRN (21:41)
[2019-10-08] VITALS (18 sets, daily range): BP systolic 98–143; BP diastolic 42–101
[2019-10-08] MEDS: IPRATROPIUM/ALBUTEROL 0.5-3(2.5)MG/3ML NEB HHN SCH ×6 (00:35→21:18)
[2019-10-08] MEDS: BLOOD SUGAR DIAGNOSTIC STRIP TEST SCH ×4 (06:45→21:41)
[2019-10-08] MEDS: DEXTROSE 50% WATER 50ML SYRINGE IV PRN (06:46)
[2019-10-08] MEDS: INSULIN LISPRO 100 UNITS/ML SUBCUT SCH ×4 (07:50→21:00)
[2019-10-08] MEDS: LOSARTAN POTASSIUM 50 MG TABLET PO SCH ×2 (08:19→21:28)
[2019-10-08] MEDS: FUROSEMIDE 40MG/4ML VIAL IVP SCH ×2 (08:19→18:03)
[2019-10-08] MEDS: FAMOTIDINE 20MG TABLET PO SCH ×2 (08:19→21:28)
[2019-10-08] MEDS: NEBIVOLOL HCL 5 MG TABLET PO SCH ×2 (08:19→21:29)
[2019-10-08] MEDS: NIFEDIPINE XL 30MG TAB PO SCH ×2 (08:19→17:00)
[2019-10-08] MEDS: APIXABAN 5 MG TABLET PO SCH ×2 (08:22→18:03)
[2019-10-08] MEDS: INSULIN GLARGINE UD 100 UNITS/ML SYR SUBCUT SCH ×2 (10:00→22:00)
[2019-10-08 10:08] LABS: BG BASE EXCESS 7.9 mmol/L (-2.0-2.0); BG CARBOXYHEMOGLOBIN 0.7 % (0.5-1.5); BG DEOXYHEMOGLOBIN 8.2 % (0.0-5.0); BG FRACTION INSPIRED OXYGEN 21; BG HCO3 ACT 33.3 mmol/L (22.0-26.0); BG METHEMOGLOBIN 0.8 % (0.0-1.5); BG OXYGEN SATURATION 91.7 % (92.0-98.5); BG OXYHEMOGLOBIN 90.3 % (94.0-97.0); BG PO2 59.4 mmHg (75.0-100.0); BG SAMPLE SITE RIGHT RADIAL; BG TOTAL HEMOGLOBIN 14.8 g/dL (12.0-18.0); BG VENT MODE ROOM AIR
[2019-10-08] MEDS: POLYETHYLENE GLYCOL 3350 (17GM) 1 DOSE PACK PO PRN (10:37)
[2019-10-08] MEDS: QUETIAPINE FUMARATE 25MG TABLET PO SCH (21:29)
[2019-10-09] VITALS (12 sets, daily range): BP systolic 93–135; BP diastolic 42–69
[2019-10-09] MEDS: IPRATROPIUM/ALBUTEROL 0.5-3(2.5)MG/3ML NEB HHN SCH ×6 (00:36→20:22)
[2019-10-09] MEDS: FUROSEMIDE 40MG/4ML VIAL IVP SCH ×2 (06:48→18:17)
[2019-10-09] MEDS: INSULIN LISPRO 100 UNITS/ML SUBCUT SCH ×4 (07:30→21:00)
[2019-10-09] MEDS: BLOOD SUGAR DIAGNOSTIC STRIP TEST SCH ×4 (08:07→21:00)
[2019-10-09] MEDS: APIXABAN 5 MG TABLET PO SCH ×2 (08:31→18:17)
[2019-10-09] MEDS: NIFEDIPINE XL 30MG TAB PO SCH (08:32)
[2019-10-09] MEDS: DEXTROSE 50% WATER 50ML SYRINGE IV PRN (08:32)
[2019-10-09] MEDS: LOSARTAN POTASSIUM 50 MG TABLET PO SCH (08:32)
[2019-10-09] MEDS: NEBIVOLOL HCL 5 MG TABLET PO SCH ×2 (08:32→21:00)
[2019-10-09] MEDS: FAMOTIDINE 20MG TABLET PO SCH ×2 (08:40→21:00)
[2019-10-09] MEDS: INSULIN GLARGINE UD 100 UNITS/ML SYR SUBCUT SCH ×2 (10:00→22:00)
[2019-10-09 15:03] LABS: BASOPHILS % 0.4 % (0.0-2.0); EOSINOPHILS % 0.8 % (0.0-5.0); HEMATOCRIT. 39.6 % (42.0-52.0); HEMOGLOBIN. 13.2 g/dL (14.0-18.0); LYMPHOCYTES % 14.8 % (20.0-50.0); MEAN CORPUSCULAR VOLUME 86.8 fL (80.0-94.0); MEAN PLATELET VOLUME 8.9 fl (7.4-10.4); MONOCYTES % 10.3 % (2.0-8.0); NEUTROPHILS % 73.7 % (40.0-76.0); PLATELET 69 x1000/uL (130-400); RED BLOOD CELL COUNT 4.56 mill/uL (4.7-6.1); RED CELL DISTRIBUTION WIDTH 14.4 % (11.6-14.6)
[2019-10-09 15:11] LABS: CHLORIDE 99 mEq/L (98-107)
[2019-10-10] VITALS (15 sets, daily range): BP systolic 90–135; BP diastolic 43–100
[2019-10-10] MEDS: IPRATROPIUM/ALBUTEROL 0.5-3(2.5)MG/3ML NEB HHN SCH ×6 (00:22→20:06)
[2019-10-10] MEDS: FUROSEMIDE 40MG/4ML VIAL IVP SCH (06:51)
[2019-10-10] MEDS: BLOOD SUGAR DIAGNOSTIC STRIP TEST SCH ×3 (07:30→16:56)
[2019-10-10] MEDS: INSULIN LISPRO 100 UNITS/ML SUBCUT SCH ×3 (07:30→18:25)
[2019-10-10 07:45] LABS: BG BASE EXCESS 0.1 mmol/L (-2.0-2.0); BG CARBOXYHEMOGLOBIN 0.8 % (0.5-1.5); BG DEOXYHEMOGLOBIN 2.5 % (0.0-5.0); BG FRACTION INSPIRED OXYGEN 28; BG HCO3 ACT 23.8 mmol/L (22.0-26.0); BG METHEMOGLOBIN 0.3 % (0.0-1.5); BG OXYGEN SATURATION 97.5 % (92.0-98.5); BG OXYHEMOGLOBIN 96.4 % (94.0-97.0); BG PCO2 35.8 mmHg (35.0-45.0); BG PH 7.441 (7.350-7.450); BG PO2 99.8 mmHg (75.0-100.0); BG SAMPLE SITE RIGHT RADIAL; BG VENT MODE NASAL CANNULA
[2019-10-10] MEDS: NEBIVOLOL HCL 5 MG TABLET PO SCH (08:42)
[2019-10-10] MEDS: APIXABAN 5 MG TABLET PO SCH (08:44)
[2019-10-10] MEDS: FAMOTIDINE 20MG TABLET PO SCH (08:51)
[2019-10-10] MEDS ORDERED: LOSARTAN POTASSIUM 25 MG TABLET PO SCH (09:00)
[2019-10-10] MEDS: INSULIN GLARGINE UD 100 UNITS/ML SYR SUBCUT SCH (09:35)
[2019-10-10 10:46] LABS: HEMATOCRIT 37.4 % (42.0-52.0); HEMOGLOBIN 12.5 g/dL (14.0-18.0); MEAN CORPUSCULAR HEMOGLOBIN 29.6 pg (28.0-32.0); MEAN CORPUSCULAR VOLUME 88.5 fL (80.0-94.0); PLATELET 63 x1000/uL (130-400); RED BLOOD CELL COUNT 4.23 mill/uL (4.7-6.1); RED CELL DISTRIBUTION WIDTH 14.3 % (11.6-14.6)
[2019-10-11] MEDS ORDERED: FUROSEMIDE 40MG TABLET PO SCH (09:00)
[2019-10-12] MEDS ORDERED: APIXABAN 5 MG TABLET PO SCH (17:00)
== END 2019-10-10 20:45 | DRG 207 ==
LOC: ER 13:02 → CVICU 14:25 → EDBEDREQ 14:28 → EDBEDREQSVC 14:28 → ENRESERV 14:51 → 5EST 10-08 11:58
PROVIDERS: ADMIT Internal Medicine; ATTEND Internal Medicine
PROC: 5A1955Z Respiratory Ventilation, Greater than 96 Consecutive Hours (ICD-10-PCS; principal; 2019-09-23)
PROC: 0BH17EZ Insertion of Endotracheal Airway into Trachea, Via Natural or Artificial Opening (ICD-10-PCS; 2019-09-23)
PROC: 06HY33Z Insertion of Infusion Device into Lower Vein, Percutaneous Approach (ICD-10-PCS; 2019-09-23)
PROC: B54CZZA Ultrasonography of Left Lower Extremity Veins, Guidance (ICD-10-PCS; 2019-09-23)
PROC: 5A09357 Assistance with Respiratory Ventilation, Less than 24 Consecutive Hours, Continuous Positive Airway Pressure (ICD-10-PCS; 2019-09-23)
PROC: 02HV33Z Insertion of Infusion Device into Superior Vena Cava, Percutaneous Approach (ICD-10-PCS; 2019-09-25)
PROC: B548ZZA Ultrasonography of Superior Vena Cava, Guidance (ICD-10-PCS; 2019-09-25)
PROC: 5A09357 Assistance with Respiratory Ventilation, Less than 24 Consecutive Hours, Continuous Positive Airway Pressure (ICD-10-PCS; 2019-10-04)
DX: J96.21 Acute and chronic respiratory failure with hypoxia (principal); J18.9 Pneumonia, unspecified organism; I50.23 Acute on chronic systolic (congestive) heart failure; I26.99 Other pulmonary embolism without acute cor pulmonale; I82.A12 Acute embolism and thrombosis of left axillary vein; I82.B12 Acute embolism and thrombosis of left subclavian vein; I82.612 Acute embolism and thrombosis of superficial veins of left upper extremity; J44.1 Chronic obstructive pulmonary disease with (acute) exacerbation; I42.9 Cardiomyopathy, unspecified; J44.0 Chronic obstructive pulmonary disease with (acute) lower respiratory infection; G62.81 Critical illness polyneuropathy; I13.0 Hypertensive heart and chronic kidney disease with heart failure and stage 1 through stage 4 chronic kidney disease, or unspecified chronic kidney disease; E87.4 Mixed disorder of acid-base balance; G93.40 Encephalopathy, unspecified; J98.11 Atelectasis; R31.0 Gross hematuria; N32.89 Other specified disorders of bladder; N32.0 Bladder-neck obstruction; I25.10 Atherosclerotic heart disease of native coronary artery without angina pectoris; N18.9 Chronic kidney disease, unspecified; E16.2 Hypoglycemia, unspecified; I48.91 Unspecified atrial fibrillation; D69.59 Other secondary thrombocytopenia; T50.995A Adverse effect of other drugs, medicaments and biological substances, initial encounter; Y92.238 Other place in hospital as the place of occurrence of the external cause; I49.3 Ventricular premature depolarization; J96.22 Acute and chronic respiratory failure with hypercapnia; R13.10 Dysphagia, unspecified; I95.1 Orthostatic hypotension; D64.9 Anemia, unspecified; Z87.891 Personal history of nicotine dependence; Z90.79 Acquired absence of other genital organ(s); Z85.46 Personal history of malignant neoplasm of prostate; Z82.49 Family history of ischemic heart disease and other diseases of the circulatory system; Z83.3 Family history of diabetes mellitus; Z86.711 Personal history of pulmonary embolism; Z86.74 Personal history of sudden cardiac arrest; Z99.81 Dependence on supplemental oxygen; Z78.1 Physical restraint status; Z95.810 Presence of automatic (implantable) cardiac defibrillator
CPT/HCPCS: 36415; 36600; 71045; 71275; 76937; 78580; 80048; 80053; 82375; 82542; 82805; 82962; 83605; 83735; 83880; 84145; 84443; 84484; 85025; 85027; 86022; 87070; 92610; 93005; 93970; 93971; 94003; 94640; 94644; 94660; 96365; 97110; 97162; 97167; 97530; 97535; 99291; A6261; C1725; C1893; J0282; J1200; J1265; J1741; J1815; J1940; J1956; J2060; J2185; J2250; J2370; J2405; J2543; J2704; J2765; J2920; J2930; J3475; J3490; J7040; J7050; J7060; Q9967; A4315

== ENCOUNTER 2019-10-10 20:50 | Inpatient (IN) | payer MEDICARE ==
[~2019-10-10] VITALS: Ht 175.3 cm; Wt 99.3 kg
[2019-10-10 20:50] VITALS: BP 103/47
[2019-10-10 23:19] VITALS: BP 103/47
[2019-10-10] MEDS ORDERED: ONDANSETRON HCL 4MG/2ML INJ IV PRN (23:30)
[2019-10-10] MEDS ORDERED: IPRATROPIUM/ALBUTEROL 0.5-3(2.5)MG/3ML NEB HHN PRN (23:30)
[2019-10-10] MEDS ORDERED: HYDRALAZINE 20MG/ML VIAL IV PRN (23:30)
[2019-10-10] MEDS ORDERED: POLYETHYLENE GLYCOL 3350 (17GM) 1 DOSE PACK PO PRN (23:30)
[2019-10-10] MEDS ORDERED: DIPHENHYDRAMINE 25MG CAPSULE PO PRN (23:30)
[2019-10-10] MEDS ORDERED: DEXTROSE 50% WATER 50ML SYRINGE IV PRN (23:30)
[2019-10-11] MEDS: IPRATROPIUM/ALBUTEROL 0.5-3(2.5)MG/3ML NEB HHN SCH ×6 (00:35→21:20)
[2019-10-11] MEDS ORDERED: HYDRALAZINE 10 MG in DEXTROSE 5% WATER 50 ML IV PRN (01:00)
[2019-10-11] MEDS: ACETAMINOPHEN 325MG TABLET PO PRN ×2 (01:11→06:52)
[2019-10-11] MEDS: BLOOD SUGAR DIAGNOSTIC STRIP TEST SCH ×4 (06:52→21:49)
[2019-10-11] MEDS: INSULIN LISPRO 100 UNITS/ML SUBCUT SCH ×4 (07:40→21:54)
[2019-10-11 08:00] VITALS: BP 100/65
[2019-10-11] MEDS: NEBIVOLOL HCL 5 MG TABLET PO SCH ×2 (09:00→21:00)
[2019-10-11] MEDS: MIDODRINE HCL 5MG TABLET PO SCH ×3 (10:16→18:14)
[2019-10-11] MEDS: FUROSEMIDE 40MG TABLET PO SCH (10:17)
[2019-10-11] MEDS: FAMOTIDINE 20MG TABLET PO SCH ×2 (10:17→21:53)
[2019-10-11] MEDS: INSULIN GLARGINE UD 100 UNITS/ML SYR SUBCUT SCH ×2 (10:38→21:53)
[2019-10-11 12:41] LABS: HEMATOCRIT 32.9 % (42.0-52.0); HEMOGLOBIN 10.9 g/dL (14.0-18.0); MEAN CORPUSCULAR HEMOGLOBIN 29.7 pg (28.0-32.0); MEAN CORPUSCULAR VOLUME 89.9 fL (80.0-94.0); PLATELET 77 x1000/uL (130-400); RED BLOOD CELL COUNT 3.66 mill/uL (4.7-6.1); RED CELL DISTRIBUTION WIDTH 14.7 % (11.6-14.6)
[2019-10-11 12:55] LABS: INR 1.2
[2019-10-11 14:47] LABS: CHLORIDE 100 mEq/L (98-107)
[2019-10-11 20:00] VITALS: BP 109/50
[2019-10-12] MEDS: IPRATROPIUM/ALBUTEROL 0.5-3(2.5)MG/3ML NEB HHN SCH ×6 (00:51→21:50)
[2019-10-12 08:00] VITALS: BP 107/69
[2019-10-12] MEDS: INSULIN LISPRO 100 UNITS/ML SUBCUT SCH ×4 (09:00→21:00)
[2019-10-12] MEDS: NEBIVOLOL HCL 5 MG TABLET PO SCH ×2 (09:00→20:48)
[2019-10-12 09:18] LABS: BASOPHILS % 0.4 % (0.0-2.0); LYMPHOCYTES % 15.8 % (20.0-50.0); MEAN CORPUSCULAR HEMOGLOBIN 30.1 pg (28.0-32.0); MEAN CORPUSCULAR VOLUME 87.1 fL (80.0-94.0); MEAN PLATELET VOLUME 8.9 fl (7.4-10.4); MONOCYTES % 7.9 % (2.0-8.0); NEUTROPHILS % 74.9 % (40.0-76.0); PLATELET 72 x1000/uL (130-400); RED BLOOD CELL COUNT 3.11 mill/uL (4.7-6.1); RED CELL DISTRIBUTION WIDTH 14.3 % (11.6-14.6)
[2019-10-12 09:40] LABS: HEMATOCRIT. 27.1 % (42.0-52.0); HEMOGLOBIN. 9.4 g/dL (14.0-18.0)
[2019-10-12] MEDS: FAMOTIDINE 20MG TABLET PO SCH ×2 (10:03→20:48)
[2019-10-12] MEDS: MIDODRINE HCL 5MG TABLET PO SCH ×3 (10:03→17:55)
[2019-10-12] MEDS: FUROSEMIDE 40MG TABLET PO SCH (10:06)
[2019-10-12] MEDS: INSULIN GLARGINE UD 100 UNITS/ML SYR SUBCUT SCH ×2 (10:11→21:49)
[2019-10-12 11:05] VITALS: BP 103/57
[2019-10-12] MEDS: BLOOD SUGAR DIAGNOSTIC STRIP TEST SCH ×3 (11:15→21:11)
[2019-10-12] MEDS: APIXABAN 5 MG TABLET PO SCH ×2 (12:27→17:53)
[2019-10-12] MEDS: ACETAMINOPHEN 325MG TABLET PO PRN (16:56)
[2019-10-12 18:39] LABS: CHLORIDE 98 mEq/L (98-107)
[2019-10-12 20:00] VITALS: BP 138/81
[2019-10-13] MEDS: IPRATROPIUM/ALBUTEROL 0.5-3(2.5)MG/3ML NEB HHN SCH ×7 (01:14→23:52)
[2019-10-13] MEDS: BLOOD SUGAR DIAGNOSTIC STRIP TEST SCH ×4 (06:09→21:02)
[2019-10-13] MEDS: INSULIN LISPRO 100 UNITS/ML SUBCUT SCH ×4 (06:10→21:00)
[2019-10-13 07:01] LABS: BASOPHILS % 0.2 % (0.0-2.0); EOSINOPHILS % 1.1 % (0.0-5.0); HEMATOCRIT. 24.2 % (42.0-52.0); HEMOGLOBIN. 8.2 g/dL (14.0-18.0); LYMPHOCYTES % 14.1 % (20.0-50.0); MEAN CORPUSCULAR HEMOGLOBIN 29.3 pg (28.0-32.0); MEAN CORPUSCULAR VOLUME 86.4 fL (80.0-94.0); MEAN PLATELET VOLUME 8.8 fl (7.4-10.4); MONOCYTES % 8.2 % (2.0-8.0); NEUTROPHILS % 76.4 % (40.0-76.0); PLATELET 76 x1000/uL (130-400); RED CELL DISTRIBUTION WIDTH 14.5 % (11.6-14.6)
[2019-10-13 07:42] LABS: CHLORIDE 96 mEq/L (98-107)
[2019-10-13 07:46] LABS: FOLIC ACID (FOLATE) SERUM 6.3 ng/mL (>5.38)
[2019-10-13 07:49] LABS: PHOSPHORUS 2.8 mg/dL (2.5-4.9)
[2019-10-13 07:50] LABS: TOTAL IRON BINDING CAPACITY 119 ug/dL (250-450)
[2019-10-13 08:00] VITALS: BP 117/54
[2019-10-13] MEDS: NEBIVOLOL HCL 5 MG TABLET PO SCH ×2 (09:00→21:00)
[2019-10-13] MEDS: FUROSEMIDE 40MG TABLET PO SCH (09:58)
[2019-10-13] MEDS: FAMOTIDINE 20MG TABLET PO SCH ×2 (09:58→21:44)
[2019-10-13] MEDS: MIDODRINE HCL 5MG TABLET PO SCH ×3 (09:58→18:29)
[2019-10-13] MEDS: INSULIN GLARGINE UD 100 UNITS/ML SYR SUBCUT SCH ×2 (10:25→22:51)
[2019-10-13] MEDS ORDERED: HYDROCODONE/ACETAMINOPHEN 5/325MG TABLET PO PRN (16:30)
[2019-10-13 20:00] VITALS: BP 97/58
[2019-10-13] MEDS: HYDROCORTISONE ACETATE 25MG SUPP PR SCH (21:44)
[2019-10-14] MEDS: IPRATROPIUM/ALBUTEROL 0.5-3(2.5)MG/3ML NEB HHN SCH ×5 (04:26→21:06)
[2019-10-14] MEDS: BLOOD SUGAR DIAGNOSTIC STRIP TEST SCH ×4 (06:01→21:00)
[2019-10-14 07:57] VITALS: BP 104/64
[2019-10-14] MEDS: MIDODRINE HCL 5MG TABLET PO SCH ×3 (08:35→17:25)
[2019-10-14] MEDS: FAMOTIDINE 20MG TABLET PO SCH ×2 (08:35→22:44)
[2019-10-14] MEDS: FUROSEMIDE 40MG TABLET PO SCH (08:35)
[2019-10-14] MEDS: NEBIVOLOL HCL 5 MG TABLET PO SCH ×2 (08:36→21:00)
[2019-10-14] MEDS: HYDROCORTISONE ACETATE 25MG SUPP PR SCH ×2 (08:36→22:44)
[2019-10-14] MEDS: INSULIN LISPRO 100 UNITS/ML SUBCUT SCH ×4 (08:36→21:00)
[2019-10-14 10:53] VITALS: BP_SYST 102; BP_SYST 105; BP_SYST 115; BP_DIAS 52; BP_DIAS 53; BP_DIAS 63
[2019-10-14] MEDS: INSULIN GLARGINE UD 100 UNITS/ML SYR SUBCUT SCH ×2 (11:22→23:19)
[2019-10-14 12:36] LABS: HEMATOCRIT 24.7 % (42.0-52.0); HEMOGLOBIN 8.2 g/dL (14.0-18.0); MEAN CORPUSCULAR HEMOGLOBIN 29.3 pg (28.0-32.0); MEAN CORPUSCULAR VOLUME 88.2 fL (80.0-94.0); PLATELET 110 x1000/uL (130-400); RED BLOOD CELL COUNT 2.81 mill/uL (4.7-6.1); RED CELL DISTRIBUTION WIDTH 14.6 % (11.6-14.6)
[2019-10-14 12:41] LABS: CHLORIDE 98 mEq/L (98-107)
[2019-10-14 20:00] VITALS: BP 111/56
[2019-10-15] MEDS: IPRATROPIUM/ALBUTEROL 0.5-3(2.5)MG/3ML NEB HHN SCH ×6 (01:04→20:00)
[2019-10-15] MEDS: BLOOD SUGAR DIAGNOSTIC STRIP TEST SCH ×4 (07:05→21:00)
[2019-10-15] MEDS: INSULIN LISPRO 100 UNITS/ML SUBCUT SCH ×4 (07:05→21:00)
[2019-10-15 07:51] VITALS: BP 102/54
[2019-10-15] MEDS: NEBIVOLOL HCL 5 MG TABLET PO SCH ×2 (09:00→22:21)
[2019-10-15] MEDS: FUROSEMIDE 40MG TABLET PO SCH (09:40)
[2019-10-15] MEDS: FAMOTIDINE 20MG TABLET PO SCH ×2 (09:40→22:21)
[2019-10-15] MEDS: MIDODRINE HCL 5MG TABLET PO SCH ×3 (09:40→16:42)
[2019-10-15] MEDS: HYDROCORTISONE ACETATE 25MG SUPP PR SCH ×2 (09:40→22:22)
[2019-10-15] MEDS: APIXABAN 5 MG TABLET PO SCH ×2 (09:46→16:41)
[2019-10-15] MEDS: INSULIN GLARGINE UD 100 UNITS/ML SYR SUBCUT SCH ×2 (10:47→22:33)
[2019-10-15 15:23] LABS: HEMOGLOBIN 8.2 g/dL (14.0-18.0); MEAN CORPUSCULAR HEMOGLOBIN 29.1 pg (28.0-32.0); MEAN CORPUSCULAR VOLUME 88.1 fL (80.0-94.0); PLATELET 141 x1000/uL (130-400); RED BLOOD CELL COUNT 2.84 mill/uL (4.7-6.1); RED CELL DISTRIBUTION WIDTH 14.8 % (11.6-14.6)
[2019-10-15 15:42] LABS: CHLORIDE 98 mEq/L (98-107)
[2019-10-15 20:00] VITALS: BP 129/50
[2019-10-16] MEDS: IPRATROPIUM/ALBUTEROL 0.5-3(2.5)MG/3ML NEB HHN SCH ×6 (01:36→20:05)
[2019-10-16] MEDS: BLOOD SUGAR DIAGNOSTIC STRIP TEST SCH ×4 (05:59→21:00)
[2019-10-16] MEDS: INSULIN LISPRO 100 UNITS/ML SUBCUT SCH ×4 (05:59→21:00)
[2019-10-16 08:08] VITALS: BP 90/45
[2019-10-16] MEDS: HYDROCORTISONE ACETATE 25MG SUPP PR SCH ×2 (08:37→21:26)
[2019-10-16] MEDS: FAMOTIDINE 20MG TABLET PO SCH ×2 (08:37→21:26)
[2019-10-16] MEDS: FUROSEMIDE 40MG TABLET PO SCH (08:37)
[2019-10-16] MEDS: MIDODRINE HCL 5MG TABLET PO SCH ×3 (08:37→16:39)
[2019-10-16] MEDS: APIXABAN 5 MG TABLET PO SCH ×2 (08:37→16:38)
[2019-10-16] MEDS: NEBIVOLOL HCL 5 MG TABLET PO SCH ×2 (09:00→21:00)
[2019-10-16] MEDS: INSULIN GLARGINE UD 100 UNITS/ML SYR SUBCUT SCH ×2 (10:49→21:27)
[2019-10-16 15:12] VITALS: BP_SYST 122; BP_SYST 125; BP_SYST 131; BP_DIAS 58; BP_DIAS 59; BP_DIAS 61
[2019-10-16 16:01] LABS: PROSTRATE SPECIFIC AG TOTAL 0.14 ng/mL (0.0-4.0)
[2019-10-16] MEDS: MAGNESIUM OXIDE 400MG TABLET PO SCH (18:29)
[2019-10-16 20:00] VITALS: BP 112/63
[2019-10-17] MEDS: IPRATROPIUM/ALBUTEROL 0.5-3(2.5)MG/3ML NEB HHN SCH ×6 (00:24→20:19)
[2019-10-17] MEDS: INSULIN LISPRO 100 UNITS/ML SUBCUT SCH ×4 (05:53→21:00)
[2019-10-17] MEDS: BLOOD SUGAR DIAGNOSTIC STRIP TEST SCH ×4 (05:53→20:53)
[2019-10-17] MEDS: MAGNESIUM OXIDE 400MG TABLET PO SCH ×2 (06:44→17:01)
[2019-10-17 08:00] VITALS: BP 102/51
[2019-10-17] MEDS: APIXABAN 5 MG TABLET PO SCH ×2 (08:06→17:01)
[2019-10-17] MEDS: FUROSEMIDE 40MG TABLET PO SCH (08:07)
[2019-10-17] MEDS: MIDODRINE HCL 5MG TABLET PO SCH ×3 (08:07→17:01)
[2019-10-17] MEDS: FAMOTIDINE 20MG TABLET PO SCH ×2 (08:07→20:53)
[2019-10-17] MEDS: NEBIVOLOL HCL 5 MG TABLET PO SCH ×2 (08:07→20:52)
[2019-10-17] MEDS: HYDROCORTISONE ACETATE 25MG SUPP PR SCH ×2 (08:08→20:53)
[2019-10-17] MEDS: INSULIN GLARGINE UD 100 UNITS/ML SYR SUBCUT SCH ×2 (10:27→21:55)
[2019-10-17 13:10] VITALS: BP 119/62
[2019-10-17 20:00] VITALS: BP 119/51
[2019-10-18] MEDS: IPRATROPIUM/ALBUTEROL 0.5-3(2.5)MG/3ML NEB HHN SCH ×6 (00:14→22:32)
[2019-10-18] MEDS: BLOOD SUGAR DIAGNOSTIC STRIP TEST SCH ×4 (06:11→20:50)
[2019-10-18] MEDS: MAGNESIUM OXIDE 400MG TABLET PO SCH (06:11)
[2019-10-18] MEDS: INSULIN LISPRO 100 UNITS/ML SUBCUT SCH ×4 (07:28→20:51)
[2019-10-18 08:02] LABS: CHLORIDE 101 mEq/L (98-107)
[2019-10-18 08:10] LABS: HEMATOCRIT. 26.8 % (42.0-52.0); HEMOGLOBIN. 9.1 g/dL (14.0-18.0); MEAN CORPUSCULAR HEMOGLOBIN 29.9 pg (28.0-32.0); MEAN CORPUSCULAR VOLUME 88.5 fL (80.0-94.0); MEAN PLATELET VOLUME 7.5 fl (7.4-10.4); PLATELET 189 x1000/uL (130-400); RED BLOOD CELL COUNT 3.03 mill/uL (4.7-6.1); RED CELL DISTRIBUTION WIDTH 15.3 % (11.6-14.6)
[2019-10-18 08:23] LABS: PHOSPHORUS 2.9 mg/dL (2.5-4.9)
[2019-10-18 08:36] VITALS: BP 141/58
[2019-10-18] MEDS: HYDROCORTISONE ACETATE 25MG SUPP PR SCH ×3 (08:47→20:51)
[2019-10-18] MEDS: MIDODRINE HCL 5MG TABLET PO SCH ×3 (08:47→16:45)
[2019-10-18] MEDS: FAMOTIDINE 20MG TABLET PO SCH ×2 (09:51→20:43)
[2019-10-18] MEDS: FUROSEMIDE 40MG TABLET PO SCH (09:51)
[2019-10-18] MEDS: NEBIVOLOL HCL 5 MG TABLET PO SCH ×2 (09:52→20:42)
[2019-10-18] MEDS: INSULIN GLARGINE UD 100 UNITS/ML SYR SUBCUT SCH ×2 (09:55→21:12)
[2019-10-18] MEDS ORDERED: APIXABAN 2.5 MG TABLET PO SCH (10:56)
[2019-10-18 16:40] LABS: BG BASE EXCESS 1.8 mmol/L (-2.0-2.0); BG CARBOXYHEMOGLOBIN 0.3 % (0.5-1.5); BG DEOXYHEMOGLOBIN 5.9 % (0.0-5.0); BG FRACTION INSPIRED OXYGEN 28; BG HCO3 ACT 25.1 mmol/L (22.0-26.0); BG METHEMOGLOBIN 0.4 % (0.0-1.5); BG OXYGEN SATURATION 94.1 % (92.0-98.5); BG OXYHEMOGLOBIN 93.4 % (94.0-97.0); BG PH 7.486 (7.350-7.450); BG PO2 78.6 mmHg (75.0-100.0); BG SAMPLE SITE RIGHT BRACHIAL; BG VENT MODE NASAL CANNULA
[2019-10-18] MEDS: APIXABAN 5 MG TABLET PO SCH (16:45)
[2019-10-18 16:54] LABS: PLATELET ESTIMATE NORMAL
[2019-10-18 19:06] LABS: 25-HYDROXY VITAMIN D3 29 ng/mL (.)
[2019-10-18 20:00] VITALS: BP 116/62
[2019-10-19] MEDS: IPRATROPIUM/ALBUTEROL 0.5-3(2.5)MG/3ML NEB HHN SCH ×6 (01:28→21:14)
[2019-10-19] MEDS: BLOOD SUGAR DIAGNOSTIC STRIP TEST SCH ×4 (06:07→20:44)
[2019-10-19] MEDS: FUROSEMIDE 40MG TABLET PO SCH (08:19)
[2019-10-19] MEDS: ACETAMINOPHEN 325MG TABLET PO PRN (08:19)
[2019-10-19] MEDS: APIXABAN 5 MG TABLET PO SCH ×2 (08:19→17:15)
[2019-10-19] MEDS: FAMOTIDINE 20MG TABLET PO SCH ×2 (08:19→20:44)
[2019-10-19] MEDS: NEBIVOLOL HCL 5 MG TABLET PO SCH ×2 (08:21→20:44)
[2019-10-19] MEDS: INSULIN LISPRO 100 UNITS/ML SUBCUT SCH ×4 (08:22→21:26)
[2019-10-19] MEDS: MIDODRINE HCL 5MG TABLET PO SCH ×3 (08:22→16:31)
[2019-10-19] MEDS: HYDROCORTISONE ACETATE 25MG SUPP PR SCH ×3 (08:23→20:48)
[2019-10-19 08:44] VITALS: BP 115/60
[2019-10-19] MEDS: INSULIN GLARGINE UD 100 UNITS/ML SYR SUBCUT SCH ×2 (10:11→21:27)
[2019-10-19 14:23] VITALS: BP 113/55
[2019-10-19 20:00] VITALS: BP 124/73
[2019-10-20] MEDS: IPRATROPIUM/ALBUTEROL 0.5-3(2.5)MG/3ML NEB HHN SCH ×6 (00:49→23:10)
[2019-10-20] MEDS: BLOOD SUGAR DIAGNOSTIC STRIP TEST SCH ×4 (05:36→21:38)
[2019-10-20] MEDS: INSULIN LISPRO 100 UNITS/ML SUBCUT SCH ×4 (05:36→21:00)
[2019-10-20 07:56] VITALS: BP 111/57
[2019-10-20] MEDS: HYDROCORTISONE ACETATE 25MG SUPP PR SCH ×2 (09:00→21:38)
[2019-10-20] MEDS: NEBIVOLOL HCL 5 MG TABLET PO SCH ×3 (09:00→21:00)
[2019-10-20] MEDS: MIDODRINE HCL 5MG TABLET PO SCH ×3 (09:00→16:59)
[2019-10-20] MEDS: FAMOTIDINE 20MG TABLET PO SCH ×2 (09:41→21:38)
[2019-10-20] MEDS: APIXABAN 5 MG TABLET PO SCH ×2 (09:41→17:10)
[2019-10-20] MEDS: FUROSEMIDE 40MG TABLET PO SCH (09:42)
[2019-10-20] MEDS: INSULIN GLARGINE UD 100 UNITS/ML SYR SUBCUT SCH ×2 (11:20→21:38)
[2019-10-20] MEDS: ACETAMINOPHEN 325MG TABLET PO PRN (18:01)
[2019-10-20 20:00] VITALS: BP 113/62
[2019-10-21] VITALS: BP 118/64
[2019-10-21] MEDS: IPRATROPIUM/ALBUTEROL 0.5-3(2.5)MG/3ML NEB HHN SCH ×5 (04:10→20:42)
[2019-10-21] MEDS: INSULIN LISPRO 100 UNITS/ML SUBCUT SCH ×4 (06:10→21:00)
[2019-10-21] MEDS: BLOOD SUGAR DIAGNOSTIC STRIP TEST SCH ×4 (06:10→21:45)
[2019-10-21 08:00] VITALS: BP_SYST 62
[2019-10-21] MEDS: FAMOTIDINE 20MG TABLET PO SCH ×2 (08:36→21:52)
[2019-10-21] MEDS: MIDODRINE HCL 5MG TABLET PO SCH ×3 (08:37→17:04)
[2019-10-21] MEDS: NEBIVOLOL HCL 5 MG TABLET PO SCH ×2 (08:37→21:00)
[2019-10-21] MEDS: FUROSEMIDE 40MG TABLET PO SCH ×2 (08:37→17:03)
[2019-10-21] MEDS: APIXABAN 5 MG TABLET PO SCH ×2 (08:37→17:03)
[2019-10-21] MEDS: HYDROCORTISONE ACETATE 25MG SUPP PR SCH ×2 (08:38→21:00)
[2019-10-21] MEDS: INSULIN GLARGINE UD 100 UNITS/ML SYR SUBCUT SCH ×2 (10:30→22:00)
[2019-10-21 13:00] VITALS: BP 105/42
[2019-10-21] MEDS ORDERED: ERGOCALCIFEROL 50000UNITS CAPSULE PO SCH (14:30)
[2019-10-21 16:35] VITALS: BP 107/57
[2019-10-21 20:00] VITALS: BP 130/67
[2019-10-22] MEDS: IPRATROPIUM/ALBUTEROL 0.5-3(2.5)MG/3ML NEB HHN SCH ×6 (00:12→20:04)
[2019-10-22] MEDS: BLOOD SUGAR DIAGNOSTIC STRIP TEST SCH ×4 (06:29→21:02)
[2019-10-22] MEDS: FUROSEMIDE 40MG TABLET PO SCH ×2 (06:30→17:26)
[2019-10-22 07:21] LABS: BASOPHILS % 0.2 % (0.0-2.0); EOSINOPHILS % 0.7 % (0.0-5.0); HEMATOCRIT. 22.3 % (42.0-52.0); HEMOGLOBIN. 7.4 g/dL (14.0-18.0); LYMPHOCYTES % 27.4 % (20.0-50.0); MEAN CORPUSCULAR HEMOGLOBIN 29.6 pg (28.0-32.0); MEAN PLATELET VOLUME 7.4 fl (7.4-10.4); MONOCYTES % 13.7 % (2.0-8.0); PLATELET 193 x1000/uL (130-400); RED BLOOD CELL COUNT 2.51 mill/uL (4.7-6.1); RED CELL DISTRIBUTION WIDTH 16.4 % (11.6-14.6)
[2019-10-22 07:37] LABS: CHLORIDE 104 mEq/L (98-107)
[2019-10-22 07:45] LABS: PHOSPHORUS 3.8 mg/dL (2.5-4.9)
[2019-10-22 08:00] VITALS: BP 116/65
[2019-10-22 08:08] VITALS: BP 116/65
[2019-10-22] MEDS: HYDROCORTISONE ACETATE 25MG SUPP PR SCH ×2 (08:23→21:00)
[2019-10-22] MEDS: APIXABAN 5 MG TABLET PO SCH ×2 (08:24→17:26)
[2019-10-22] MEDS: FAMOTIDINE 20MG TABLET PO SCH ×2 (08:24→21:03)
[2019-10-22] MEDS: MIDODRINE HCL 5MG TABLET PO SCH ×3 (08:25→17:26)
[2019-10-22] MEDS: NEBIVOLOL HCL 5 MG TABLET PO SCH ×2 (08:25→21:00)
[2019-10-22] MEDS: INSULIN LISPRO 100 UNITS/ML SUBCUT SCH ×4 (08:26→21:00)
[2019-10-22] MEDS: INSULIN GLARGINE UD 100 UNITS/ML SYR SUBCUT SCH ×2 (11:15→21:03)
[2019-10-22] MEDS: MAGNESIUM GLUCONATE 500MG TABLET PO SCH (12:08)
[2019-10-22] MEDS ORDERED: SACU1TAB4 MT (19:32)
[2019-10-22] MEDS ORDERED: FURO40TA5 MT (19:32)
[2019-10-22] MEDS ORDERED: ATOR-2 MT (19:32)
[2019-10-22] MEDS ORDERED: ALBU2.5V13 NEB (19:32)
[2019-10-22] MEDS ORDERED: METO100T16 MT (19:32)
[2019-10-22 20:00] VITALS: BP 113/63
[2019-10-23] MEDS: IPRATROPIUM/ALBUTEROL 0.5-3(2.5)MG/3ML NEB HHN SCH ×6 (00:38→20:01)
[2019-10-23] MEDS: INSULIN LISPRO 100 UNITS/ML SUBCUT SCH ×4 (06:22→21:00)
[2019-10-23] MEDS: BLOOD SUGAR DIAGNOSTIC STRIP TEST SCH ×4 (06:22→21:00)
[2019-10-23] MEDS: FUROSEMIDE 40MG TABLET PO SCH ×2 (06:23→16:58)
[2019-10-23 06:24] VITALS: BP 128/70
[2019-10-23 06:44] LABS: BASOPHILS % 0.2 % (0.0-2.0); EOSINOPHILS % 0.5 % (0.0-5.0); HEMATOCRIT. 23.7 % (42.0-52.0); HEMOGLOBIN. 7.9 g/dL (14.0-18.0); LYMPHOCYTES % 29.5 % (20.0-50.0); MEAN CORPUSCULAR HEMOGLOBIN 29.6 pg (28.0-32.0); MEAN PLATELET VOLUME 7.5 fl (7.4-10.4); MONOCYTES % 12.9 % (2.0-8.0); NEUTROPHILS % 56.9 % (40.0-76.0); PLATELET 208 x1000/uL (130-400); RED BLOOD CELL COUNT 2.66 mill/uL (4.7-6.1); RED CELL DISTRIBUTION WIDTH 16.5 % (11.6-14.6)
[2019-10-23 07:00] VITALS: BP 119/64
[2019-10-23 07:14] LABS: CHLORIDE 104 mEq/L (98-107)
[2019-10-23] MEDS: APIXABAN 5 MG TABLET PO SCH ×2 (08:20→17:19)
[2019-10-23] MEDS: MAGNESIUM GLUCONATE 500MG TABLET PO SCH ×2 (08:20→16:58)
[2019-10-23] MEDS: NEBIVOLOL HCL 5 MG TABLET PO SCH ×2 (08:21→21:00)
[2019-10-23] MEDS: FAMOTIDINE 20MG TABLET PO SCH ×2 (08:21→22:04)
[2019-10-23] MEDS: HYDROCORTISONE ACETATE 25MG SUPP PR SCH ×2 (08:21→21:00)
[2019-10-23] MEDS: MIDODRINE HCL 5MG TABLET PO SCH ×3 (08:21→16:59)
[2019-10-23] MEDS: INSULIN GLARGINE UD 100 UNITS/ML SYR SUBCUT SCH ×2 (10:04→22:00)
[2019-10-23 12:05] VITALS: BP 135/74
[2019-10-23] MEDS ORDERED: LACTULOSE 20G/30ML UDC PO SCH (13:30)
[2019-10-23 16:55] VITALS: BP 123/65
[2019-10-23 20:00] VITALS: BP 113/66
[2019-10-24] MEDS: IPRATROPIUM/ALBUTEROL 0.5-3(2.5)MG/3ML NEB HHN SCH ×6 (04:01→20:24)
[2019-10-24 06:25] VITALS: BP 120/70
[2019-10-24] MEDS: BLOOD SUGAR DIAGNOSTIC STRIP TEST SCH ×4 (06:25→20:36)
[2019-10-24] MEDS: FUROSEMIDE 40MG TABLET PO SCH ×2 (06:25→16:33)
[2019-10-24] MEDS: MIDODRINE HCL 5MG TABLET PO SCH ×3 (09:00→17:00)
[2019-10-24] MEDS: HYDROCORTISONE ACETATE 25MG SUPP PR SCH ×3 (09:00→20:36)
[2019-10-24] MEDS: INSULIN LISPRO 100 UNITS/ML SUBCUT SCH ×4 (09:00→21:31)
[2019-10-24 09:08] VITALS: BP 133/63
[2019-10-24] MEDS: MAGNESIUM GLUCONATE 500MG TABLET PO SCH ×2 (09:37→16:33)
[2019-10-24] MEDS: APIXABAN 5 MG TABLET PO SCH ×2 (09:37→16:33)
[2019-10-24] MEDS: NEBIVOLOL HCL 5 MG TABLET PO SCH ×2 (09:37→20:35)
[2019-10-24] MEDS: FAMOTIDINE 20MG TABLET PO SCH ×2 (09:37→20:35)
[2019-10-24] MEDS: INSULIN GLARGINE UD 100 UNITS/ML SYR SUBCUT SCH ×2 (09:40→21:31)
[2019-10-24 10:50] LABS: BASOPHILS % 0.7 % (0.0-2.0); EOSINOPHILS % 0.4 % (0.0-5.0); HEMATOCRIT. 24.6 % (42.0-52.0); HEMOGLOBIN. 8.2 g/dL (14.0-18.0); LYMPHOCYTES % 26.4 % (20.0-50.0); MEAN CORPUSCULAR HEMOGLOBIN 29.3 pg (28.0-32.0); MEAN CORPUSCULAR VOLUME 88.1 fL (80.0-94.0); MEAN PLATELET VOLUME 7.6 fl (7.4-10.4); NEUTROPHILS % 59.5 % (40.0-76.0); PLATELET 235 x1000/uL (130-400); RED BLOOD CELL COUNT 2.79 mill/uL (4.7-6.1); RED CELL DISTRIBUTION WIDTH 16.4 % (11.6-14.6)
[2019-10-24 11:03] LABS: CHLORIDE 103 mEq/L (98-107)
[2019-10-24 11:35] VITALS: BP 148/67
[2019-10-24 13:04] VITALS: BP 120/69
[2019-10-24 20:00] VITALS: BP 117/60
[2019-10-25] MEDS: IPRATROPIUM/ALBUTEROL 0.5-3(2.5)MG/3ML NEB HHN SCH ×7 (00:20→23:58)
[2019-10-25 05:44] LABS: HEMATOCRIT. 24.3 % (42.0-52.0); HEMOGLOBIN. 8.1 g/dL (14.0-18.0); MEAN CORPUSCULAR HEMOGLOBIN 29.3 pg (28.0-32.0); MEAN CORPUSCULAR VOLUME 88.1 fL (80.0-94.0); MEAN PLATELET VOLUME 7.7 fl (7.4-10.4); PLATELET 247 x1000/uL (130-400); RED BLOOD CELL COUNT 2.76 mill/uL (4.7-6.1); RED CELL DISTRIBUTION WIDTH 16.2 % (11.6-14.6)
[2019-10-25] MEDS: INSULIN LISPRO 100 UNITS/ML SUBCUT SCH ×4 (05:58→21:00)
[2019-10-25] MEDS: BLOOD SUGAR DIAGNOSTIC STRIP TEST SCH ×4 (05:58→21:16)
[2019-10-25 06:18] LABS: CHLORIDE 104 mEq/L (98-107)
[2019-10-25] MEDS: FUROSEMIDE 40MG TABLET PO SCH ×2 (06:30→16:47)
[2019-10-25 07:36] LABS: PLATELET ESTIMATE NORMAL
[2019-10-25 08:00] VITALS: BP 107/56
[2019-10-25] MEDS: FAMOTIDINE 20MG TABLET PO SCH ×2 (08:33→21:16)
[2019-10-25] MEDS: APIXABAN 5 MG TABLET PO SCH ×2 (08:34→16:47)
[2019-10-25] MEDS: MIDODRINE HCL 5MG TABLET PO SCH ×3 (08:35→16:48)
[2019-10-25] MEDS: MAGNESIUM GLUCONATE 500MG TABLET PO SCH ×2 (08:35→16:47)
[2019-10-25] MEDS: NEBIVOLOL HCL 5 MG TABLET PO SCH ×2 (08:40→21:16)
[2019-10-25] MEDS: HYDROCORTISONE ACETATE 25MG SUPP PR SCH ×2 (08:42→21:00)
[2019-10-25] MEDS: INSULIN GLARGINE UD 100 UNITS/ML SYR SUBCUT SCH ×2 (11:48→22:00)
[2019-10-25 20:00] VITALS: BP 121/62
[2019-10-26] MEDS: IPRATROPIUM/ALBUTEROL 0.5-3(2.5)MG/3ML NEB HHN SCH ×2 (04:22→07:51)
[2019-10-26] MEDS: BLOOD SUGAR DIAGNOSTIC STRIP TEST SCH ×2 (06:39→11:11)
[2019-10-26] MEDS: FUROSEMIDE 40MG TABLET PO SCH (06:40)
[2019-10-26 08:00] VITALS: BP 126/57
[2019-10-26 08:27] LABS: HEMATOCRIT. 23.6 % (42.0-52.0); HEMOGLOBIN. 7.7 g/dL (14.0-18.0); MEAN CORPUSCULAR VOLUME 88.9 fL (80.0-94.0); MEAN PLATELET VOLUME 7.7 fl (7.4-10.4); PLATELET 223 x1000/uL (130-400); RED BLOOD CELL COUNT 2.66 mill/uL (4.7-6.1); RED CELL DISTRIBUTION WIDTH 16.8 % (11.6-14.6)
[2019-10-26 08:30] LABS: CHLORIDE 104 mEq/L (98-107)
[2019-10-26] MEDS: INSULIN LISPRO 100 UNITS/ML SUBCUT SCH ×2 (09:00→13:00)
[2019-10-26] MEDS: MAGNESIUM GLUCONATE 500MG TABLET PO SCH (09:35)
[2019-10-26] MEDS: MIDODRINE HCL 5MG TABLET PO SCH ×2 (09:35→13:00)
[2019-10-26] MEDS: FAMOTIDINE 20MG TABLET PO SCH (09:35)
[2019-10-26] MEDS: NEBIVOLOL HCL 5 MG TABLET PO SCH (09:36)
[2019-10-26] MEDS: APIXABAN 5 MG TABLET PO SCH (09:36)
[2019-10-26] MEDS: HYDROCORTISONE ACETATE 25MG SUPP PR SCH (09:36)
[2019-10-26 10:35] VITALS: BP 126/57
[2019-10-26 11:02] LABS: NUCLEATED RED BLOOD CELLS 1 /100 WBC
[2019-10-26 11:03] LABS: PLATELET ESTIMATE NORMAL
[2019-10-26] MEDS: INSULIN GLARGINE UD 100 UNITS/ML SYR SUBCUT SCH (11:19)
== END 2019-10-26 14:57 | disposition home health service (06) | DRG 73 ==
PROVIDERS: ADMIT Physical Medicine & Rehabilitation Spinal Cord Injury Medicine; ATTEND Internal Medicine
DX: G62.81 Critical illness polyneuropathy (principal); I50.23 Acute on chronic systolic (congestive) heart failure; I26.99 Other pulmonary embolism without acute cor pulmonale; J18.9 Pneumonia, unspecified organism; J96.21 Acute and chronic respiratory failure with hypoxia; J44.1 Chronic obstructive pulmonary disease with (acute) exacerbation; J44.0 Chronic obstructive pulmonary disease with (acute) lower respiratory infection; G93.40 Encephalopathy, unspecified; I82.622 Acute embolism and thrombosis of deep veins of left upper extremity; E87.4 Mixed disorder of acid-base balance; I42.9 Cardiomyopathy, unspecified; I82.409 Acute embolism and thrombosis of unspecified deep veins of unspecified lower extremity; S37.30XA Unspecified injury of urethra, initial encounter; I82.B12 Acute embolism and thrombosis of left subclavian vein; E87.2 Acidosis; D69.6 Thrombocytopenia, unspecified; D64.9 Anemia, unspecified; E83.42 Hypomagnesemia; G31.84 Mild cognitive impairment of uncertain or unknown etiology; X58.XXXA Exposure to other specified factors, initial encounter; I25.10 Atherosclerotic heart disease of native coronary artery without angina pectoris; I11.0 Hypertensive heart disease with heart failure; I95.1 Orthostatic hypotension; R13.10 Dysphagia, unspecified; R31.0 Gross hematuria; Z79.01 Long term (current) use of anticoagulants; Z85.46 Personal history of malignant neoplasm of prostate; Z86.74 Personal history of sudden cardiac arrest; Z95.810 Presence of automatic (implantable) cardiac defibrillator; Z86.718 Personal history of other venous thrombosis and embolism; Z79.899 Other long term (current) drug therapy; Y93.89 Activity, other specified; Y92.89 Other specified places as the place of occurrence of the external cause; Y99.8 Other external cause status
CPT/HCPCS: 36415; 36600; 71045; 80048; 80053; 82270; 82306; 82375; 82607; 82728; 82746; 82805; 82962; 83540; 83550; 83735; 83880; 84100; 84134; 84153; 84443; 85025; 85027; 92610; 93970; 94640; 97110; 97116; 97162; 97166; 97530; 97535; J1815; Q0163; G0103

== ENCOUNTER 2021-01-02 20:07 | Inpatient (IN) | payer MEDICARE ==
[~2021-01-02] VITALS: Ht 180.3 cm; Wt 91.2 kg
[~2021-01-02 20:07] MED LIST changes: +ALBU2.5V13 NEB; -ASPI-1079 PO; +ATOR-2 MT; -ATOR-2 PO; -CHOL200059 MT; +FURO40TA5 MT; -FURO40TA5 PO; +METO100T16 MT; -METO100T16 PO
[2021-01-02 21:09] LABS: CHLORIDE 103 mEq/L (98-107)
[2021-01-02 21:11] LABS: BASOPHILS % 0.4 % (0.0-2.0); EOSINOPHILS % 0.2 % (0.0-5.0); HEMATOCRIT. 26.3 % (42.0-52.0); HEMOGLOBIN. 8.6 g/dL (14.0-18.0); LYMPHOCYTES % 18.6 % (20.0-50.0); MEAN CORPUSCULAR VOLUME 88.9 fL (80.0-94.0); MEAN PLATELET VOLUME 8.1 fl (7.4-10.4); MONOCYTES % 7.5 % (2.0-8.0); NEUTROPHILS % 73.3 % (40.0-76.0); PLATELET 161 x1000/uL (130-400); RED BLOOD CELL COUNT 2.96 mill/uL (4.7-6.1); RED CELL DISTRIBUTION WIDTH 20.6 % (11.6-14.6)
[2021-01-02] MEDS ORDERED: FUROSEMIDE 20MG TABLET PO ONE (22:15)
[2021-01-02] MEDS ORDERED: ASPIRIN 325MG EC TABLET PO ONE (22:15)
[2021-01-02] MEDS ORDERED: ALBUTEROL (0.083%) 2.5MG/3ML NEB HHN ONE (23:15)
[2021-01-03] MEDS ORDERED: ONDANSETRON HCL 4MG/2ML INJ IV PRN (01:45)
[2021-01-03] MEDS ORDERED: DIPHENHYDRAMINE 50MG/ML VIAL IV PRN (01:45)
[2021-01-03] MEDS ORDERED: MAGNESIUM/ALUMINUM HYDROXIDE/SIMETHICONE 30ML UDC PO PRN (01:45)
[2021-01-03] MEDS ORDERED: GUAIFENESIN 200MG/10ML SUGAR FREE UDC PO PRN (01:45)
[2021-01-03] MEDS ORDERED: ACETAMINOPHEN 325MG TABLET PO PRN (01:45)
[2021-01-03] MEDS ORDERED: LEVOFLOXACIN 500MG PREMIX 100 ML IV SCH (02:00)
[2021-01-03] MEDS ORDERED: ALBUTEROL (0.083%) 2.5MG/3ML NEB HHN ONE ×2 (04:30→04:45)
[2021-01-03] MEDS ORDERED: FUROSEMIDE 20MG/2ML VIAL IVP ONE (04:30)
[2021-01-03] MEDS: IPRATROPIUM/ALBUTEROL 0.5-3(2.5)MG/3ML NEB HHN SCH ×3 (04:55→20:05)
[2021-01-03] MEDS ORDERED: ENOXAPARIN 120MG/0.8ML SYR SUBCUT SCH (08:00)
[2021-01-03] MEDS: SODIUM CHLORIDE 0.9% INJ 3ML FLUSH IVF SCH ×3 (10:52→21:30)
[2021-01-03] MEDS: METOPROLOL TARTRATE 50MG TABLET PO SCH ×2 (11:30→21:00)
[2021-01-03 11:52] VITALS: BP 103/47
[2021-01-03 12:00] VITALS: BP 103/47
[2021-01-03] MEDS: FUROSEMIDE 40MG/4ML VIAL IVP SCH ×2 (12:22→21:30)
[2021-01-03] MEDS: ENOXAPARIN 100MG/ML SYR SUBCUT SCH ×2 (12:22→21:23)
[2021-01-03 14:23] LABS: CLARITY URINE CLEAR (CLEAR); COLOR URINE YELLOW (YELLOW); KETONES URINE NEGATIVE (NEGATIVE); LEUKOCYTE ESTERASE URINE NEGATIVE (NEGATIVE); NITRITE URINE NEGATIVE (NEGATIVE); OCCULT BLOOD URINE NEGATIVE (NEGATIVE); PROTEIN URINE NEGATIVE (NEGATIVE); SPECIFIC GRAVITY URINE 1.008 (1.005-1.030)
[2021-01-03 14:41] LABS: *AMPHETAMINES SCREEN URINE NEGATIVE (NEGATIVE); *BARBITURATES SCREEN URINE NEGATIVE (NEGATIVE); *BENZODIAZEPINES SCREEN URINE NEGATIVE (NEGATIVE); *COCAINE SCREEN URINE NEGATIVE (NEGATIVE); METHADONE URINE SCREEN NEGATIVE (NEGATIVE); OPIATES URINE SCREEN NEGATIVE (NEGATIVE)
[2021-01-03 14:43] LABS: CANNABINOID URINE SCREEN NEGATIVE (NEGATIVE); PHENCYCLIDINE URINE SCREEN NEGATIVE (NEGATIVE)
[2021-01-03 15:40] LABS: INR 1.4; PROTHROMBIN TIME 14.4 sec (9.6-11.0)
[2021-01-03 16:00] VITALS: BP 93/43
[2021-01-03] MEDS ORDERED: MIDODRINE HCL 2.5MG TABLET PO SCH (19:00)
[2021-01-03 20:00] VITALS: BP 91/70
[2021-01-03] MEDS ORDERED: POTASSIUM CHLORIDE 20MEQ TABLET SR PO NR (21:10)
[2021-01-03] MEDS ORDERED: METOLAZONE 2.5MG TABLET PO NR (21:15)
[2021-01-03] MEDS: ZOLPIDEM TARTRATE 5MG TABLET PO PRN (21:29)
[2021-01-03] MEDS: METHYLPREDNISOLONE SOD SUCC 125 MG/2 ML VIAL IV SCH (21:29)
[2021-01-03 21:32] LABS: CHLORIDE 106 mEq/L (98-107)
[2021-01-04] VITALS (11 sets, daily range): BP systolic 89–100; BP diastolic 45–59
[2021-01-04] MEDS ORDERED: MAGNESIUM 2 G PREMIX 50 ML IV SCH (01:00)
[2021-01-04] MEDS: MIDODRINE HCL 2.5MG TABLET PO SCH ×4 (01:02→17:33)
[2021-01-04] MEDS: IPRATROPIUM/ALBUTEROL 0.5-3(2.5)MG/3ML NEB HHN SCH ×4 (01:58→21:29)
[2021-01-04] MEDS: LEVOFLOXACIN 500MG PREMIX 100 ML IV SCH (04:11)
[2021-01-04 04:47] LABS: CHLORIDE 105 mEq/L (98-107)
[2021-01-04 05:01] LABS: PHOSPHORUS 3.6 mg/dL (2.5-4.9)
[2021-01-04] MEDS: SODIUM CHLORIDE 0.9% INJ 3ML FLUSH IVF SCH ×3 (06:08→21:11)
[2021-01-04] MEDS: METHYLPREDNISOLONE SOD SUCC 125 MG/2 ML VIAL IV SCH ×3 (06:09→21:11)
[2021-01-04 06:13] LABS: HEMATOCRIT. 22.1 % (42.0-52.0); MEAN CORPUSCULAR HEMOGLOBIN 28.4 pg (28.0-32.0); MEAN CORPUSCULAR VOLUME 90.1 fL (80.0-94.0); MEAN PLATELET VOLUME 8.1 fl (7.4-10.4); PLATELET 124 x1000/uL (130-400); RED BLOOD CELL COUNT 2.45 mill/uL (4.7-6.1); RED CELL DISTRIBUTION WIDTH 20.8 % (11.6-14.6)
[2021-01-04] MEDS: ENOXAPARIN 100MG/ML SYR SUBCUT SCH (09:00)
[2021-01-04] MEDS ORDERED: ASPIRIN 81MG EC TABLET PO SCH (09:00)
[2021-01-04] MEDS: METOPROLOL TARTRATE 50MG TABLET PO SCH ×2 (09:00→21:00)
[2021-01-04] MEDS: FUROSEMIDE 40MG/4ML VIAL IVP SCH ×2 (09:28→21:11)
[2021-01-04] MEDS ORDERED: VANCOMYCIN 2,000 MG in DEXT 5% WATER 500 ML IV SCH (12:00)
[2021-01-04] MEDS ORDERED: METOLAZONE 2.5MG TABLET PO NR (12:15)
[2021-01-04] MEDS: POTASSIUM CHLORIDE 20MEQ TABLET SR PO SCH (13:08)
[2021-01-04 13:34] LABS: PLATELET ESTIMATE SLIGHTLY DECREASED
[2021-01-04 18:29] LABS: CHLORIDE 102 mEq/L (98-107)
[2021-01-04] MEDS: ZOLPIDEM TARTRATE 5MG TABLET PO PRN (21:12)
[2021-01-05] VITALS: BP 100/44
[2021-01-05 00:12] LABS: BASOPHILS % 0.1 % (0.0-2.0); HEMATOCRIT. 23.7 % (42.0-52.0); HEMOGLOBIN. 7.8 g/dL (14.0-18.0); LYMPHOCYTES % 7.9 % (20.0-50.0); MEAN CORPUSCULAR HEMOGLOBIN 29.4 pg (28.0-32.0); MEAN CORPUSCULAR VOLUME 88.8 fL (80.0-94.0); MEAN PLATELET VOLUME 8.5 fl (7.4-10.4); MONOCYTES % 3.8 % (2.0-8.0); NEUTROPHILS % 88.2 % (40.0-76.0); PLATELET 137 x1000/uL (130-400); RED BLOOD CELL COUNT 2.67 mill/uL (4.7-6.1); RED CELL DISTRIBUTION WIDTH 19.8 % (11.6-14.6)
[2021-01-05 00:18] LABS: INR 1.2
[2021-01-05] MEDS: IPRATROPIUM/ALBUTEROL 0.5-3(2.5)MG/3ML NEB HHN SCH ×4 (00:59→21:31)
[2021-01-05 04:00] VITALS: BP 92/56
[2021-01-05] MEDS: LEVOFLOXACIN 500MG PREMIX 100 ML IV SCH (04:58)
[2021-01-05] MEDS: METHYLPREDNISOLONE SOD SUCC 125 MG/2 ML VIAL IV SCH ×3 (06:27→22:32)
[2021-01-05] MEDS: SODIUM CHLORIDE 0.9% INJ 3ML FLUSH IVF SCH ×3 (06:28→22:32)
[2021-01-05] MEDS: VANCOMYCIN 1 G PREMIX 200 ML IV SCH (06:28)
[2021-01-05 06:31] LABS: BASOPHILS % 0.1 % (0.0-2.0); HEMOGLOBIN. 7.7 g/dL (14.0-18.0); LYMPHOCYTES % 7.2 % (20.0-50.0); MEAN CORPUSCULAR HEMOGLOBIN 28.8 pg (28.0-32.0); MEAN CORPUSCULAR VOLUME 89.3 fL (80.0-94.0); NEUTROPHILS % 89.7 % (40.0-76.0); PLATELET 132 x1000/uL (130-400); RED BLOOD CELL COUNT 2.69 mill/uL (4.7-6.1); RED CELL DISTRIBUTION WIDTH 20.8 % (11.6-14.6)
[2021-01-05 06:37] LABS: CHLORIDE 102 mEq/L (98-107)
[2021-01-05 06:52] LABS: FOLIC ACID (FOLATE) SERUM 3.9 ng/mL (>5.38)
[2021-01-05 06:55] LABS: TOTAL IRON BINDING CAPACITY 141 ug/dL (250-450)
[2021-01-05 08:00] VITALS: BP 99/50
[2021-01-05] MEDS: FUROSEMIDE 40MG/4ML VIAL IVP SCH ×2 (08:46→22:32)
[2021-01-05] MEDS: POTASSIUM CHLORIDE 20MEQ TABLET SR PO SCH (08:47)
[2021-01-05] MEDS: MIDODRINE HCL 2.5MG TABLET PO SCH ×3 (08:47→17:03)
[2021-01-05] MEDS: METOPROLOL TARTRATE 50MG TABLET PO SCH ×2 (08:48→21:00)
[2021-01-05 12:00] VITALS: BP 103/57
[2021-01-05 12:03] LABS: BG BASE EXCESS 3.9 mmol/L (-2.0-2.0); BG CARBOXYHEMOGLOBIN 0.3 % (0.5-1.5); BG DEOXYHEMOGLOBIN 0.4 % (0.0-5.0); BG FRACTION INSPIRED OXYGEN 36; BG HCO3 ACT 29.2 mmol/L (22.0-26.0); BG METHEMOGLOBIN 0.4 % (0.0-1.5); BG OXYGEN SATURATION 99.6 % (92.0-98.5); BG OXYHEMOGLOBIN 98.9 % (94.0-97.0); BG PCO2 47.8 mmHg (35.0-45.0); BG PH 7.404 (7.350-7.450); BG PO2 211.2 mmHg (75.0-100.0); BG SAMPLE SITE LEFT BRACHIAL; BG TOTAL HEMOGLOBIN 8.8 g/dL (12.0-18.0); BG VENT MODE NASAL CANNULA
[2021-01-05] MEDS: FOLIC ACID 1MG TABLET PO SCH (13:05)
[2021-01-05] MEDS ORDERED: FUROSEMIDE 40MG/4ML VIAL IVP NR (14:22)
[2021-01-05] MEDS ORDERED: POTASSIUM CHLORIDE 20MEQ/PACKET PO NR (14:23)
[2021-01-05 16:00] VITALS: BP 103/53
[2021-01-05] MEDS: CEFTRIAXONE 2 G in DEXTROSE 5% WATER 50 ML IV SCH (17:34)
[2021-01-05 20:00] VITALS: BP 102/69
[2021-01-05] MEDS: PANTOPRAZOLE SODIUM 40 MG/VIAL IV SCH (22:32)
[2021-01-06] VITALS: BP 99/55
[2021-01-06] MEDS: IPRATROPIUM/ALBUTEROL 0.5-3(2.5)MG/3ML NEB HHN SCH ×4 (01:48→21:03)
[2021-01-06 04:00] VITALS: BP 100/45
[2021-01-06] MEDS: VANCOMYCIN 1 G PREMIX 200 ML IV SCH ×2 (05:22→17:27)
[2021-01-06] MEDS: SODIUM CHLORIDE 0.9% INJ 3ML FLUSH IVF SCH ×3 (05:46→22:37)
[2021-01-06] MEDS: CEFTRIAXONE 2 G in DEXTROSE 5% WATER 50 ML IV SCH ×2 (05:46→17:27)
[2021-01-06] MEDS: METHYLPREDNISOLONE SOD SUCC 125 MG/2 ML VIAL IV SCH ×3 (05:48→22:43)
[2021-01-06 06:45] LABS: HEMATOCRIT. 22.8 % (42.0-52.0); HEMOGLOBIN. 7.6 g/dL (14.0-18.0); MEAN CORPUSCULAR HEMOGLOBIN 29.3 pg (28.0-32.0); MEAN CORPUSCULAR VOLUME 87.9 fL (80.0-94.0); PLATELET 130 x1000/uL (130-400); RED CELL DISTRIBUTION WIDTH 20.1 % (11.6-14.6)
[2021-01-06 06:47] LABS: INR 1.2; PARTIAL THROMBOPLASTIN TIME 31.9 sec (23.4-31.0); PROTHROMBIN TIME 12.4 sec (9.6-11.0)
[2021-01-06 06:49] LABS: CHLORIDE 100 mEq/L (98-107)
[2021-01-06 08:00] VITALS: BP 99/41
[2021-01-06] MEDS: METOPROLOL TARTRATE 50MG TABLET PO SCH ×2 (09:00→21:00)
[2021-01-06] MEDS: FUROSEMIDE 40MG/4ML VIAL IVP SCH ×2 (09:43→21:00)
[2021-01-06] MEDS: PANTOPRAZOLE SODIUM 40 MG/VIAL IV SCH ×2 (09:43→22:43)
[2021-01-06] MEDS: MIDODRINE HCL 5MG TABLET PO SCH ×3 (09:44→17:28)
[2021-01-06] MEDS: FOLIC ACID 1MG TABLET PO SCH (09:44)
[2021-01-06] MEDS: ACETAMINOPHEN 325MG TABLET PO PRN (09:48)
[2021-01-06] MEDS: POTASSIUM CHLORIDE 20MEQ TABLET SR PO SCH (09:48)
[2021-01-06] MEDS ORDERED: LEVOFLOXACIN 500MG TABLET PO SCH (11:00)
[2021-01-06] MEDS ORDERED: MIDAZOLAM HCL 5 MG/5 ML VIAL ONE (11:50)
[2021-01-06] MEDS ORDERED: MIDAZOLAM HCL 5 MG/5 ML VIAL IV PRN (11:50)
[2021-01-06] MEDS ORDERED: FENTANYL CITRATE/PF 50MCG/ML 2ML VIAL ONE (11:50)
[2021-01-06 16:00] VITALS: BP 121/79
[2021-01-06 20:00] VITALS: BP 92/58
[2021-01-07] VITALS: BP 103/65
[2021-01-07] MEDS: IPRATROPIUM/ALBUTEROL 0.5-3(2.5)MG/3ML NEB HHN SCH ×4 (02:12→15:00)
[2021-01-07 04:00] VITALS: BP 97/57
[2021-01-07] MEDS: ACETAMINOPHEN 325MG TABLET PO PRN (04:09)
[2021-01-07] MEDS: CEFTRIAXONE 2 G in DEXTROSE 5% WATER 50 ML IV SCH (05:06)
[2021-01-07] MEDS: METHYLPREDNISOLONE SOD SUCC 125 MG/2 ML VIAL IV SCH ×3 (05:06→21:19)
[2021-01-07] MEDS: SODIUM CHLORIDE 0.9% INJ 3ML FLUSH IVF SCH ×3 (05:07→21:20)
[2021-01-07 05:28] LABS: PLATELET ESTIMATE NORMAL
[2021-01-07 08:00] VITALS: BP 99/61
[2021-01-07] MEDS: METOPROLOL TARTRATE 50MG TABLET PO SCH ×2 (09:00→21:00)
[2021-01-07] MEDS: FOLIC ACID 1MG TABLET PO SCH (09:04)
[2021-01-07] MEDS: POTASSIUM CHLORIDE 20MEQ TABLET SR PO SCH (09:04)
[2021-01-07] MEDS: MIDODRINE HCL 5MG TABLET PO SCH ×3 (09:04→17:41)
[2021-01-07] MEDS: PANTOPRAZOLE SODIUM 40 MG/VIAL IV SCH ×2 (09:04→21:19)
[2021-01-07] MEDS: FUROSEMIDE 40MG/4ML VIAL IVP SCH ×2 (09:04→21:19)
[2021-01-07 11:13] LABS: HEMATOCRIT. 24.9 % (42.0-52.0); HEMOGLOBIN. 8.3 g/dL (14.0-18.0); MEAN CORPUSCULAR HEMOGLOBIN 29.5 pg (28.0-32.0); MEAN CORPUSCULAR VOLUME 88.1 fL (80.0-94.0); MEAN PLATELET VOLUME 7.8 fl (7.4-10.4); PLATELET 128 x1000/uL (130-400); RED BLOOD CELL COUNT 2.83 mill/uL (4.7-6.1); RED CELL DISTRIBUTION WIDTH 20.6 % (11.6-14.6)
[2021-01-07 11:25] LABS: CHLORIDE 99 mEq/L (98-107)
[2021-01-07] MEDS: VANCOMYCIN 1 G PREMIX 200 ML IV SCH (11:29)
[2021-01-07 12:00] VITALS: BP 94/56
[2021-01-07 16:00] VITALS: BP 105/56
[2021-01-07 16:11] LABS: PLATELET ESTIMATE SLIGHTLY DECREASED
[2021-01-07 20:00] VITALS: BP 109/55
[2021-01-07] MEDS: ZOLPIDEM TARTRATE 5MG TABLET PO PRN (21:19)
[2021-01-08] VITALS: BP 120/83
[2021-01-08] MEDS: IPRATROPIUM/ALBUTEROL 0.5-3(2.5)MG/3ML NEB HHN SCH ×4 (02:35→22:30)
[2021-01-08 04:00] VITALS: BP 110/45
[2021-01-08] MEDS: SODIUM CHLORIDE 0.9% INJ 3ML FLUSH IVF SCH ×3 (06:14→21:23)
[2021-01-08] MEDS: VANCOMYCIN 1 G PREMIX 200 ML IV SCH ×2 (06:14→23:08)
[2021-01-08] MEDS: METHYLPREDNISOLONE SOD SUCC 125 MG/2 ML VIAL IV SCH ×3 (06:14→21:22)
[2021-01-08 08:00] VITALS: BP 117/60
[2021-01-08] MEDS: POTASSIUM CHLORIDE 20MEQ TABLET SR PO SCH (09:50)
[2021-01-08] MEDS: ACETAMINOPHEN 325MG TABLET PO PRN ×2 (09:51→23:08)
[2021-01-08] MEDS: FUROSEMIDE 40MG/4ML VIAL IVP SCH ×2 (09:52→21:23)
[2021-01-08] MEDS: FOLIC ACID 1MG TABLET PO SCH (09:52)
[2021-01-08] MEDS: PANTOPRAZOLE SODIUM 40 MG/VIAL IV SCH ×2 (09:52→21:23)
[2021-01-08] MEDS: METOPROLOL TARTRATE 50MG TABLET PO SCH ×2 (09:54→21:00)
[2021-01-08 12:00] VITALS: BP 109/61
[2021-01-08 16:00] VITALS: BP 96/64
[2021-01-08 16:06] LABS: BASOPHILS % 0.2 % (0.0-2.0); HEMATOCRIT. 25.4 % (42.0-52.0); HEMOGLOBIN. 8.5 g/dL (14.0-18.0); LYMPHOCYTES % 7.7 % (20.0-50.0); MEAN CORPUSCULAR HEMOGLOBIN 29.3 pg (28.0-32.0); MEAN CORPUSCULAR VOLUME 87.3 fL (80.0-94.0); MEAN PLATELET VOLUME 8.1 fl (7.4-10.4); MONOCYTES % 4.8 % (2.0-8.0); NEUTROPHILS % 87.3 % (40.0-76.0); PLATELET 145 x1000/uL (130-400); RED BLOOD CELL COUNT 2.91 mill/uL (4.7-6.1); RED CELL DISTRIBUTION WIDTH 19.7 % (11.6-14.6)
[2021-01-08 16:25] LABS: CHLORIDE 96 mEq/L (98-107)
[2021-01-08] MEDS: MIDODRINE HCL 5MG TABLET PO SCH (17:00)
[2021-01-08] MEDS ORDERED: FUROSEMIDE 40MG/4ML VIAL IVP NR (18:45)
[2021-01-08 18:58] LABS: BG CARBOXYHEMOGLOBIN 0.3 % (0.5-1.5); BG DEOXYHEMOGLOBIN 1.6 % (0.0-5.0); BG FRACTION INSPIRED OXYGEN 36; BG METHEMOGLOBIN 0.2 % (0.0-1.5); BG OXYGEN SATURATION 98.4 % (92.0-98.5); BG OXYHEMOGLOBIN 97.9 % (94.0-97.0); BG PCO2 52.3 mmHg (35.0-45.0); BG PH 7.377 (7.350-7.450); BG PO2 116.5 mmHg (75.0-100.0); BG SAMPLE SITE RIGHT RADIAL; BG TOTAL HEMOGLOBIN 10.3 g/dL (12.0-18.0); BG VENT MODE NASAL CANNULA
[2021-01-08 20:00] VITALS: BP 104/69
[2021-01-08] MEDS: ZOLPIDEM TARTRATE 5MG TABLET PO PRN (23:34)
[2021-01-09] VITALS: BP 115/75
[2021-01-09] MEDS: MIDODRINE HCL 5MG TABLET PO SCH ×3 (01:33→17:11)
[2021-01-09 04:00] VITALS: BP 122/80
[2021-01-09] MEDS: IPRATROPIUM/ALBUTEROL 0.5-3(2.5)MG/3ML NEB HHN SCH ×4 (04:15→21:37)
[2021-01-09] MEDS: ACETAMINOPHEN 325MG TABLET PO PRN (04:16)
[2021-01-09] MEDS: SODIUM CHLORIDE 0.9% INJ 3ML FLUSH IVF SCH ×3 (05:15→22:54)
[2021-01-09] MEDS: METHYLPREDNISOLONE SOD SUCC 125 MG/2 ML VIAL IV SCH ×3 (05:15→22:54)
[2021-01-09 08:00] VITALS: BP 114/72
[2021-01-09] MEDS: PANTOPRAZOLE SODIUM 40 MG/VIAL IV SCH ×2 (09:10→21:11)
[2021-01-09] MEDS: FUROSEMIDE 40MG/4ML VIAL IVP SCH (09:10)
[2021-01-09] MEDS: FOLIC ACID 1MG TABLET PO SCH (09:11)
[2021-01-09] MEDS: METOPROLOL TARTRATE 50MG TABLET PO SCH ×2 (09:11→21:00)
[2021-01-09] MEDS: POTASSIUM CHLORIDE 20MEQ TABLET SR PO SCH (09:12)
[2021-01-09 09:22] LABS: HEMATOCRIT. 26.1 % (42.0-52.0); HEMOGLOBIN. 8.7 g/dL (14.0-18.0); MEAN CORPUSCULAR HEMOGLOBIN 29.4 pg (28.0-32.0); MEAN CORPUSCULAR VOLUME 88.6 fL (80.0-94.0); MEAN PLATELET VOLUME 8.1 fl (7.4-10.4); PLATELET 145 x1000/uL (130-400); RED BLOOD CELL COUNT 2.95 mill/uL (4.7-6.1); RED CELL DISTRIBUTION WIDTH 19.9 % (11.6-14.6)
[2021-01-09 10:36] LABS: BG BASE EXCESS 1.7 mmol/L (-2.0-2.0); BG CARBOXYHEMOGLOBIN 0.4 % (0.5-1.5); BG DEOXYHEMOGLOBIN 5.4 % (0.0-5.0); BG FRACTION INSPIRED OXYGEN 28; BG METHEMOGLOBIN 0.4 % (0.0-1.5); BG OXYGEN SATURATION 94.6 % (92.0-98.5); BG OXYHEMOGLOBIN 93.8 % (94.0-97.0); BG PCO2 60.3 mmHg (35.0-45.0); BG PO2 78.8 mmHg (75.0-100.0); BG SAMPLE SITE RIGHT RADIAL; BG TOTAL HEMOGLOBIN 10.3 g/dL (12.0-18.0); BG VENT MODE NASAL CANNULA
[2021-01-09] MEDS: IPRATROPIUM/ALBUTEROL 0.5-3(2.5)MG/3ML NEB HHN PRN (11:46)
[2021-01-09 11:55] VITALS: BP 101/59
[2021-01-09 14:14] LABS: BG BASE EXCESS 1.5 mmol/L (-2.0-2.0); BG CARBOXYHEMOGLOBIN 0.3 % (0.5-1.5); BG DEOXYHEMOGLOBIN 2.3 % (0.0-5.0); BG FRACTION INSPIRED OXYGEN 28; BG HCO3 ACT 28.3 mmol/L (22.0-26.0); BG METHEMOGLOBIN 0.1 % (0.0-1.5); BG OXYGEN SATURATION 97.7 % (92.0-98.5); BG OXYHEMOGLOBIN 97.3 % (94.0-97.0); BG PCO2 56.4 mmHg (35.0-45.0); BG PH 7.318 (7.350-7.450); BG PO2 106.9 mmHg (75.0-100.0); BG SAMPLE SITE RIGHT RADIAL; BG TOTAL HEMOGLOBIN 9.9 g/dL (12.0-18.0); BG VENT MODE MASK - BIPAP
[2021-01-09 16:00] VITALS: BP 106/69
[2021-01-09 20:00] VITALS: BP 111/65
[2021-01-10] VITALS (56 sets, daily range): BP systolic 83–137; BP diastolic 26–97
[2021-01-10] MEDS: MIDODRINE HCL 5MG TABLET PO SCH ×4 (01:46→17:56)
[2021-01-10] MEDS: ZOLPIDEM TARTRATE 5MG TABLET PO PRN (01:47)
[2021-01-10] MEDS: IPRATROPIUM/ALBUTEROL 0.5-3(2.5)MG/3ML NEB HHN SCH ×4 (03:52→21:02)
[2021-01-10] MEDS: SODIUM CHLORIDE 0.9% INJ 3ML FLUSH IVF SCH (05:53)
[2021-01-10] MEDS: METHYLPREDNISOLONE SOD SUCC 125 MG/2 ML VIAL IV SCH ×3 (05:53→21:59)
[2021-01-10 07:20] LABS: HEMATOCRIT. 27.2 % (42.0-52.0); HEMOGLOBIN. 8.8 g/dL (14.0-18.0); MEAN CORPUSCULAR HEMOGLOBIN 29.1 pg (28.0-32.0); MEAN CORPUSCULAR VOLUME 89.8 fL (80.0-94.0); MEAN PLATELET VOLUME 8.1 fl (7.4-10.4); PLATELET 125 x1000/uL (130-400); RED BLOOD CELL COUNT 3.03 mill/uL (4.7-6.1)
[2021-01-10 08:06] LABS: PLATELET ESTIMATE NORMAL
[2021-01-10 08:25] LABS: BG BASE EXCESS -1.9 mmol/L (-2.0-2.0); BG CARBOXYHEMOGLOBIN 0.3 % (0.5-1.5); BG DEOXYHEMOGLOBIN 4.7 % (0.0-5.0); BG FRACTION INSPIRED OXYGEN 32; BG HCO3 ACT 25.2 mmol/L (22.0-26.0); BG METHEMOGLOBIN 0.4 % (0.0-1.5); BG OXYGEN SATURATION 95.3 % (92.0-98.5); BG OXYHEMOGLOBIN 94.6 % (94.0-97.0); BG PCO2 54.9 mmHg (35.0-45.0); BG PO2 89.4 mmHg (75.0-100.0); BG SAMPLE SITE RIGHT RADIAL; BG VENT MODE NASAL CANNULA
[2021-01-10] MEDS: METOPROLOL TARTRATE 50MG TABLET PO SCH ×2 (08:43→21:59)
[2021-01-10] MEDS ORDERED: SODIUM BICARBONATE 8.4% 1 MEQ/ML 50ML SYR IV NR (08:45)
[2021-01-10] MEDS: FAMOTIDINE 20MG/2ML VIAL IV SCH (10:25)
[2021-01-10] MEDS: FOLIC ACID 1MG TABLET PO SCH (10:26)
[2021-01-10 12:08] LABS: PLATELET ESTIMATE SLIGHTLY DECREASED
[2021-01-10 14:13] LABS: BG CARBOXYHEMOGLOBIN 0.2 % (0.5-1.5); BG DEOXYHEMOGLOBIN 2.3 % (0.0-5.0); BG FRACTION INSPIRED OXYGEN 28; BG HCO3 ACT 28.9 mmol/L (22.0-26.0); BG METHEMOGLOBIN 0.1 % (0.0-1.5); BG OXYGEN SATURATION 97.7 % (92.0-98.5); BG OXYHEMOGLOBIN 97.4 % (94.0-97.0); BG PCO2 51.2 mmHg (35.0-45.0); BG PH 7.369 (7.350-7.450); BG PO2 106.7 mmHg (75.0-100.0); BG SAMPLE SITE RIGHT BRACHIAL; BG TOTAL HEMOGLOBIN 9.1 g/dL (12.0-18.0); BG VENT MODE MASK - BIPAP
[2021-01-11] VITALS (55 sets, daily range): BP systolic 82–142; BP diastolic 41–92
[2021-01-11] MEDS: IPRATROPIUM/ALBUTEROL 0.5-3(2.5)MG/3ML NEB HHN SCH ×4 (02:17→20:43)
[2021-01-11 06:35] LABS: HEMATOCRIT. 25.9 % (42.0-52.0); HEMOGLOBIN. 8.3 g/dL (14.0-18.0); MEAN CORPUSCULAR HEMOGLOBIN 28.5 pg (28.0-32.0); MEAN CORPUSCULAR VOLUME 88.9 fL (80.0-94.0); MEAN PLATELET VOLUME 8.4 fl (7.4-10.4); PLATELET 111 x1000/uL (130-400); RED BLOOD CELL COUNT 2.92 mill/uL (4.7-6.1); RED CELL DISTRIBUTION WIDTH 20.3 % (11.6-14.6)
[2021-01-11] MEDS: METHYLPREDNISOLONE SOD SUCC 125 MG/2 ML VIAL IV SCH ×3 (06:47→21:02)
[2021-01-11 07:33] LABS: PLATELET ESTIMATE SLIGHTLY DECREASED
[2021-01-11] MEDS: FOLIC ACID 1MG TABLET PO SCH (08:10)
[2021-01-11] MEDS: FAMOTIDINE 20MG/2ML VIAL IV SCH (08:10)
[2021-01-11] MEDS: MIDODRINE HCL 5MG TABLET PO SCH ×3 (08:10→15:36)
[2021-01-11] MEDS: METOPROLOL TARTRATE 50MG TABLET PO SCH ×2 (08:14→21:03)
[2021-01-11 08:46] LABS: BG BASE EXCESS 3.3 mmol/L (-2.0-2.0); BG CARBOXYHEMOGLOBIN 0.3 % (0.5-1.5); BG FRACTION INSPIRED OXYGEN 28; BG HCO3 ACT 29.4 mmol/L (22.0-26.0); BG OXYHEMOGLOBIN 97.7 % (94.0-97.0); BG PH 7.362 (7.350-7.450); BG PO2 120.8 mmHg (75.0-100.0); BG SAMPLE SITE RIGHT RADIAL; BG TOTAL HEMOGLOBIN 9.3 g/dL (12.0-18.0); BG TOTAL RESPIRATORY RATE 28 b/min; BG VENT MODE MASK - BIPAP
[2021-01-11 10:30] LABS: BG BASE EXCESS 2.1 mmol/L (-2.0-2.0); BG DEOXYHEMOGLOBIN 1.1 % (0.0-5.0); BG FRACTION INSPIRED OXYGEN 32; BG HCO3 ACT 27.9 mmol/L (22.0-26.0); BG METHEMOGLOBIN 0.1 % (0.0-1.5); BG OXYGEN SATURATION 98.9 % (92.0-98.5); BG OXYHEMOGLOBIN 98.8 % (94.0-97.0); BG PCO2 49.4 mmHg (35.0-45.0); BG PO2 152.7 mmHg (75.0-100.0); BG SAMPLE SITE RIGHT BRACHIAL; BG TOTAL HEMOGLOBIN 9.7 g/dL (12.0-18.0); BG VENT MODE NASAL CANNULA
[2021-01-11] MEDS ORDERED: SODIUM POLYSTYRENE SULFONATE 15 G/60 ML BOT PO NR (11:00)
[2021-01-11] MEDS: IPRATROPIUM/ALBUTEROL 0.5-3(2.5)MG/3ML NEB HHN PRN (18:26)
[2021-01-11 19:26] LABS: BG BASE EXCESS 9.3 mmol/L (-2.0-2.0); BG CARBOXYHEMOGLOBIN 1.3 % (0.5-1.5); BG DEOXYHEMOGLOBIN 0.8 % (0.0-5.0); BG FRACTION INSPIRED OXYGEN 50; BG OXYGEN SATURATION 99.2 % (92.0-98.5); BG OXYHEMOGLOBIN 96.9 % (94.0-97.0); BG PCO2 49.3 mmHg (35.0-45.0); BG PH 7.456 (7.350-7.450); BG PO2 155.9 mmHg (75.0-100.0); BG SAMPLE SITE RIGHT RADIAL; BG TOTAL HEMOGLOBIN 4.8 g/dL (12.0-18.0); BG TOTAL RESPIRATORY RATE 32 b/min; BG VENT MODE MASK - BIPAP
[2021-01-11 20:59] LABS: HEMATOCRIT. 25.6 % (42.0-52.0); HEMOGLOBIN. 8.7 g/dL (14.0-18.0); MEAN CORPUSCULAR HEMOGLOBIN 29.9 pg (28.0-32.0); MEAN CORPUSCULAR VOLUME 88.2 fL (80.0-94.0); MEAN PLATELET VOLUME 8.4 fl (7.4-10.4); PLATELET 114 x1000/uL (130-400); RED CELL DISTRIBUTION WIDTH 20.1 % (11.6-14.6)
[2021-01-11 23:41] LABS: PLATELET ESTIMATE DECREASED
[2021-01-12] VITALS: BP 125/59
[2021-01-12] MEDS: IPRATROPIUM/ALBUTEROL 0.5-3(2.5)MG/3ML NEB HHN SCH ×4 (00:48→21:02)
[2021-01-12 04:00] VITALS: BP 112/71
[2021-01-12] MEDS: METHYLPREDNISOLONE SOD SUCC 125 MG/2 ML VIAL IV SCH ×3 (05:28→21:22)
[2021-01-12 07:49] LABS: INR 1.2; PARTIAL THROMBOPLASTIN TIME 26.6 sec (23.4-31.0); PROTHROMBIN TIME 12.8 sec (9.6-11.0)
[2021-01-12 07:51] LABS: HEMATOCRIT. 26.9 % (42.0-52.0); HEMOGLOBIN. 8.9 g/dL (14.0-18.0); MEAN CORPUSCULAR HEMOGLOBIN 29.6 pg (28.0-32.0); MEAN CORPUSCULAR VOLUME 89.8 fL (80.0-94.0); MEAN PLATELET VOLUME 8.9 fl (7.4-10.4); PLATELET 103 x1000/uL (130-400); RED BLOOD CELL COUNT 2.99 mill/uL (4.7-6.1); RED CELL DISTRIBUTION WIDTH 20.7 % (11.6-14.6)
[2021-01-12 08:00] VITALS: BP 106/72
[2021-01-12 08:14] LABS: CHLORIDE 94 mEq/L (98-107)
[2021-01-12] MEDS: MIDODRINE HCL 5MG TABLET PO SCH ×3 (09:00→16:16)
[2021-01-12] MEDS: METOPROLOL TARTRATE 50MG TABLET PO SCH ×2 (09:00→21:00)
[2021-01-12] MEDS: FOLIC ACID 1MG TABLET PO SCH (09:00)
[2021-01-12] MEDS: IPRATROPIUM/ALBUTEROL 0.5-3(2.5)MG/3ML NEB HHN PRN (09:03)
[2021-01-12 09:44] LABS: BG BASE EXCESS 3.1 mmol/L (-2.0-2.0); BG CARBOXYHEMOGLOBIN 0.4 % (0.5-1.5); BG DEOXYHEMOGLOBIN 2.9 % (0.0-5.0); BG FRACTION INSPIRED OXYGEN 32; BG METHEMOGLOBIN 0.4 % (0.0-1.5); BG OXYGEN SATURATION 97.1 % (92.0-98.5); BG OXYHEMOGLOBIN 96.3 % (94.0-97.0); BG PCO2 44.3 mmHg (35.0-45.0); BG PH 7.418 (7.350-7.450); BG PO2 97.1 mmHg (75.0-100.0); BG SAMPLE SITE RIGHT BRACHIAL; BG TOTAL HEMOGLOBIN 9.5 g/dL (12.0-18.0); BG VENT MODE NASAL CANNULA
[2021-01-12] MEDS ORDERED: SODIUM CHLORIDE 0.9% 1,000 ML IV SCH (10:15)
[2021-01-12] MEDS: FAMOTIDINE 20MG/2ML VIAL IV SCH (10:19)
[2021-01-12 12:00] VITALS: BP 114/67
[2021-01-12] MEDS ORDERED: FUROSEMIDE 40MG/4ML VIAL IVP SCH (12:30)
[2021-01-12] MEDS ORDERED: [UNRECOGNIZED DRUG - REMARK] XX SCH (14:45)
[2021-01-12] MEDS ORDERED: LIDOCAINE HCL 2% JELLY 5ML ONE (14:55)
[2021-01-12] MEDS ORDERED: TETRACAINE/BENZOCAINE/BUTAMBEN 20 GM SPRAY MM ONE (14:55)
[2021-01-12] MEDS ORDERED: FENTANYL CITRATE/PF 50MCG/ML 5ML VIAL ONE (14:56)
[2021-01-12] MEDS ORDERED: MIDAZOLAM HCL 5 MG/5 ML VIAL ONE (14:56)
[2021-01-12 16:00] VITALS: BP 112/65
[2021-01-12] MEDS: AMPICILLIN 2000MG in SODIUM CHLORIDE 0.9% 100ML IV SCH (16:23)
[2021-01-12] MEDS ORDERED: DAPTOMYCIN 900 MG in SODIUM CHLORIDE 0.9% 100 ML IV SCH (18:00)
[2021-01-12 20:00] VITALS: BP 109/75
[2021-01-13] VITALS (7 sets, daily range): BP systolic 103–137; BP diastolic 48–86
[2021-01-13] MEDS: IPRATROPIUM/ALBUTEROL 0.5-3(2.5)MG/3ML NEB HHN SCH ×4 (02:22→20:11)
[2021-01-13] MEDS: AMPICILLIN 2000MG in SODIUM CHLORIDE 0.9% 100ML IV SCH ×3 (02:38→17:06)
[2021-01-13] MEDS: METHYLPREDNISOLONE SOD SUCC 125 MG/2 ML VIAL IV SCH ×3 (05:09→21:35)
[2021-01-13 07:53] LABS: HEMATOCRIT. 25.2 % (42.0-52.0); HEMOGLOBIN. 8.4 g/dL (14.0-18.0); MEAN CORPUSCULAR HEMOGLOBIN 29.9 pg (28.0-32.0); MEAN CORPUSCULAR VOLUME 89.8 fL (80.0-94.0); MEAN PLATELET VOLUME 8.8 fl (7.4-10.4); PLATELET 101 x1000/uL (130-400); RED BLOOD CELL COUNT 2.81 mill/uL (4.7-6.1); RED CELL DISTRIBUTION WIDTH 20.5 % (11.6-14.6)
[2021-01-13 08:00] LABS: PLATELET ESTIMATE DECREASED
[2021-01-13] MEDS: MIDODRINE HCL 5MG TABLET PO SCH ×3 (08:26→17:05)
[2021-01-13] MEDS: METOPROLOL TARTRATE 50MG TABLET PO SCH ×2 (10:24→21:35)
[2021-01-13] MEDS: FAMOTIDINE 20MG/2ML VIAL IV SCH (10:25)
[2021-01-13] MEDS: FOLIC ACID 1MG TABLET PO SCH (10:25)
[2021-01-13] MEDS: ACETAMINOPHEN 325MG TABLET PO PRN (10:29)
[2021-01-13 11:38] LABS: BG BASE EXCESS 4.1 mmol/L (-2.0-2.0); BG CARBOXYHEMOGLOBIN 0.4 % (0.5-1.5); BG DEOXYHEMOGLOBIN 0.8 % (0.0-5.0); BG FRACTION INSPIRED OXYGEN 36; BG METHEMOGLOBIN 0.5 % (0.0-1.5); BG OXYGEN SATURATION 99.2 % (92.0-98.5); BG OXYHEMOGLOBIN 98.3 % (94.0-97.0); BG PCO2 52.1 mmHg (35.0-45.0); BG PH 7.378 (7.350-7.450); BG PO2 196.3 mmHg (75.0-100.0); BG SAMPLE SITE RIGHT RADIAL; BG TOTAL HEMOGLOBIN 9.1 g/dL (12.0-18.0); BG VENT MODE NASAL CANNULA
[2021-01-13 13:40] LABS: NUCLEATED RED BLOOD CELLS 1 /100 WBC; PLATELET ESTIMATE SLIGHTLY DECREASED
[2021-01-13 18:17] LABS: BG CARBOXYHEMOGLOBIN 0.3 % (0.5-1.5); BG DEOXYHEMOGLOBIN 12.6 % (0.0-5.0); BG FRACTION INSPIRED OXYGEN 28; BG HCO3 ACT 30.3 mmol/L (22.0-26.0); BG METHEMOGLOBIN 0.2 % (0.0-1.5); BG OXYGEN SATURATION 87.3 % (92.0-98.5); BG OXYHEMOGLOBIN 86.9 % (94.0-97.0); BG PH 7.359 (7.350-7.450); BG PO2 57.7 mmHg (75.0-100.0); BG SAMPLE SITE RIGHT RADIAL; BG TOTAL HEMOGLOBIN 9.9 g/dL (12.0-18.0); BG VENT MODE NASAL CANNULA
[2021-01-13] MEDS: ZOLPIDEM TARTRATE 5MG TABLET PO PRN (21:34)
[2021-01-14] VITALS (11 sets, daily range): BP systolic 96–131; BP diastolic 66–85
[2021-01-14] MEDS: AMPICILLIN 2000MG in SODIUM CHLORIDE 0.9% 100ML IV SCH ×3 (01:32→18:49)
[2021-01-14] MEDS: IPRATROPIUM/ALBUTEROL 0.5-3(2.5)MG/3ML NEB HHN SCH ×4 (02:29→20:09)
[2021-01-14] MEDS: METHYLPREDNISOLONE SOD SUCC 125 MG/2 ML VIAL IV SCH ×3 (05:16→22:21)
[2021-01-14 06:51] LABS: HEMATOCRIT. 26.4 % (42.0-52.0); HEMOGLOBIN. 8.7 g/dL (14.0-18.0); MEAN CORPUSCULAR HEMOGLOBIN 30.2 pg (28.0-32.0); MEAN CORPUSCULAR VOLUME 91.3 fL (80.0-94.0); MEAN PLATELET VOLUME 9.1 fl (7.4-10.4); PLATELET 89 x1000/uL (130-400); RED BLOOD CELL COUNT 2.89 mill/uL (4.7-6.1); RED CELL DISTRIBUTION WIDTH 20.7 % (11.6-14.6)
[2021-01-14] MEDS ORDERED: FUROSEMIDE 40MG/4ML VIAL IVP SCH (09:00)
[2021-01-14] MEDS: FAMOTIDINE 20MG TABLET PO SCH (09:00)
[2021-01-14] MEDS: FOLIC ACID 1MG TABLET PO SCH (09:00)
[2021-01-14] MEDS: MIDODRINE HCL 5MG TABLET PO SCH ×3 (09:00→16:41)
[2021-01-14] MEDS: METOPROLOL TARTRATE 50MG TABLET PO SCH ×2 (09:00→20:32)
[2021-01-14 09:28] LABS: BG BASE EXCESS 3.9 mmol/L (-2.0-2.0); BG CARBOXYHEMOGLOBIN 0.3 % (0.5-1.5); BG DEOXYHEMOGLOBIN 2.1 % (0.0-5.0); BG FRACTION INSPIRED OXYGEN 35; BG HCO3 ACT 30.4 mmol/L (22.0-26.0); BG METHEMOGLOBIN 0.4 % (0.0-1.5); BG OXYGEN SATURATION 97.9 % (92.0-98.5); BG OXYHEMOGLOBIN 97.2 % (94.0-97.0); BG PCO2 56.6 mmHg (35.0-45.0); BG PH 7.348 (7.350-7.450); BG PO2 111.7 mmHg (75.0-100.0); BG SAMPLE SITE LEFT BRACHIAL; BG TOTAL HEMOGLOBIN 9.6 g/dL (12.0-18.0); BG VENT MODE MASK - BIPAP
[2021-01-14 14:43] LABS: PLATELET ESTIMATE DECREASED
[2021-01-14] MEDS: DAPTOMYCIN 900 MG in SODIUM CHLORIDE 0.9% 100 ML IV SCH (20:32)
[2021-01-15] VITALS (15 sets, daily range): BP systolic 108–132; BP diastolic 60–88
[2021-01-15] MEDS: IPRATROPIUM/ALBUTEROL 0.5-3(2.5)MG/3ML NEB HHN SCH ×4 (02:11→20:10)
[2021-01-15] MEDS: AMPICILLIN 2000MG in SODIUM CHLORIDE 0.9% 100ML IV SCH ×3 (03:09→16:53)
[2021-01-15] MEDS: METHYLPREDNISOLONE SOD SUCC 125 MG/2 ML VIAL IV SCH ×3 (06:05→20:35)
[2021-01-15] MEDS: METOPROLOL TARTRATE 50MG TABLET PO SCH ×2 (09:00→20:36)
[2021-01-15] MEDS: MIDODRINE HCL 5MG TABLET PO SCH ×3 (09:23→16:54)
[2021-01-15] MEDS: FOLIC ACID 1MG TABLET PO SCH (09:23)
[2021-01-15] MEDS: FAMOTIDINE 20MG TABLET PO SCH (09:23)
[2021-01-15 09:30] LABS: BG BASE EXCESS 2.6 mmol/L (-2.0-2.0); BG CARBOXYHEMOGLOBIN 0.6 % (0.5-1.5); BG DEOXYHEMOGLOBIN 2.9 % (0.0-5.0); BG FRACTION INSPIRED OXYGEN 28; BG HCO3 ACT 28.1 mmol/L (22.0-26.0); BG METHEMOGLOBIN 0.4 % (0.0-1.5); BG OXYGEN SATURATION 97.1 % (92.0-98.5); BG OXYHEMOGLOBIN 96.1 % (94.0-97.0); BG PCO2 48.2 mmHg (35.0-45.0); BG PH 7.384 (7.350-7.450); BG PO2 99.2 mmHg (75.0-100.0); BG SAMPLE SITE RIGHT RADIAL; BG VENT MODE MASK - BIPAP
[2021-01-15] MEDS: FUROSEMIDE 40MG/4ML VIAL IVP SCH ×2 (10:00→16:53)
[2021-01-15] MEDS ORDERED: DIATR MEGLU/DIATRIZOATE SOLN 30ML PO SCH (11:45)
[2021-01-16] VITALS (14 sets, daily range): BP systolic 97–142; BP diastolic 64–89
[2021-01-16] MEDS: AMPICILLIN 2000MG in SODIUM CHLORIDE 0.9% 100ML IV SCH ×3 (01:11→16:25)
[2021-01-16] MEDS: IPRATROPIUM/ALBUTEROL 0.5-3(2.5)MG/3ML NEB HHN SCH ×4 (02:09→20:07)
[2021-01-16] MEDS: METHYLPREDNISOLONE SOD SUCC 125 MG/2 ML VIAL IV SCH ×3 (05:29→21:22)
[2021-01-16] MEDS: MIDODRINE HCL 5MG TABLET PO SCH ×3 (08:49→16:25)
[2021-01-16] MEDS: FOLIC ACID 1MG TABLET PO SCH (08:49)
[2021-01-16] MEDS: FUROSEMIDE 40MG/4ML VIAL IVP SCH (08:49)
[2021-01-16] MEDS: METOPROLOL TARTRATE 50MG TABLET PO SCH ×2 (08:49→21:21)
[2021-01-16] MEDS: FAMOTIDINE 20MG TABLET PO SCH (08:49)
[2021-01-16 13:06] LABS: HEMATOCRIT. 28.8 % (42.0-52.0); HEMOGLOBIN. 9.5 g/dL (14.0-18.0); MEAN CORPUSCULAR HEMOGLOBIN 30.4 pg (28.0-32.0); MEAN CORPUSCULAR VOLUME 92.4 fL (80.0-94.0); PLATELET 100 x1000/uL (130-400); RED BLOOD CELL COUNT 3.11 mill/uL (4.7-6.1)
[2021-01-16] MEDS ORDERED: SODIUM POLYSTYRENE SULFONATE 15 G/60 ML BOT PO NR (16:00)
[2021-01-16 16:21] LABS: CREATINE KINASE 29 IU/L (39-308)
[2021-01-16 16:53] LABS: NUCLEATED RED BLOOD CELLS 3 /100 WBC
[2021-01-16 16:54] LABS: PLATELET ESTIMATE DECREASED
[2021-01-16] MEDS: DAPTOMYCIN 900 MG in SODIUM CHLORIDE 0.9% 100 ML IV SCH (21:21)
[2021-01-17] VITALS (17 sets, daily range): BP systolic 98–136; BP diastolic 66–87
[2021-01-17] MEDS: IPRATROPIUM/ALBUTEROL 0.5-3(2.5)MG/3ML NEB HHN SCH ×4 (01:18→20:35)
[2021-01-17] MEDS: AMPICILLIN 2000MG in SODIUM CHLORIDE 0.9% 100ML IV SCH ×2 (01:41→08:34)
[2021-01-17] MEDS: METHYLPREDNISOLONE SOD SUCC 125 MG/2 ML VIAL IV SCH ×3 (05:23→22:00)
[2021-01-17 06:00] LABS: HEMOGLOBIN. 9.4 g/dL (14.0-18.0); MEAN CORPUSCULAR HEMOGLOBIN 29.9 pg (28.0-32.0); MEAN CORPUSCULAR VOLUME 92.7 fL (80.0-94.0); MEAN PLATELET VOLUME 9.5 fl (7.4-10.4); PLATELET 83 x1000/uL (130-400); RED BLOOD CELL COUNT 3.13 mill/uL (4.7-6.1); RED CELL DISTRIBUTION WIDTH 21.7 % (11.6-14.6)
[2021-01-17] MEDS: FAMOTIDINE 20MG TABLET PO SCH (08:36)
[2021-01-17] MEDS: FOLIC ACID 1MG TABLET PO SCH (08:36)
[2021-01-17] MEDS: METOPROLOL TARTRATE 50MG TABLET PO SCH ×2 (08:37→21:00)
[2021-01-17] MEDS: MIDODRINE HCL 5MG TABLET PO SCH ×3 (08:48→16:13)
[2021-01-17] MEDS: FUROSEMIDE 40MG/4ML VIAL IVP SCH (08:49)
[2021-01-17 09:58] LABS: BG CARBOXYHEMOGLOBIN 0.4 % (0.5-1.5); BG DEOXYHEMOGLOBIN 3.8 % (0.0-5.0); BG FRACTION INSPIRED OXYGEN 28; BG HCO3 ACT 24.6 mmol/L (22.0-26.0); BG METHEMOGLOBIN 0.4 % (0.0-1.5); BG OXYGEN SATURATION 96.2 % (92.0-98.5); BG OXYHEMOGLOBIN 95.4 % (94.0-97.0); BG PCO2 44.9 mmHg (35.0-45.0); BG PH 7.357 (7.350-7.450); BG PO2 91.3 mmHg (75.0-100.0); BG SAMPLE SITE RIGHT RADIAL; BG TOTAL HEMOGLOBIN 10.2 g/dL (12.0-18.0); BG TOTAL RESPIRATORY RATE 30 b/min; BG VENT MODE MASK - BIPAP
[2021-01-17] MEDS ORDERED: SODIUM POLYSTYRENE SULFONATE 15 G/60 ML BOT PO NR (14:00)
[2021-01-17 21:22] LABS: NUCLEATED RED BLOOD CELLS 4 /100 WBC; PLATELET ESTIMATE DECREASED
[2021-01-17] MEDS: AMPICILLIN 2,000 MG in SODIUM CHLORIDE 0.9% 100 ML IV SCH (22:29)
[2021-01-18] VITALS (13 sets, daily range): BP systolic 113–141; BP diastolic 48–90
[2021-01-18] MEDS: IPRATROPIUM/ALBUTEROL 0.5-3(2.5)MG/3ML NEB HHN SCH ×4 (01:51→20:44)
[2021-01-18] MEDS: METHYLPREDNISOLONE SOD SUCC 125 MG/2 ML VIAL IV SCH ×3 (06:32→21:01)
[2021-01-18 06:40] LABS: HEMATOCRIT. 27.3 % (42.0-52.0); MEAN CORPUSCULAR VOLUME 93.4 fL (80.0-94.0); MEAN PLATELET VOLUME 9.2 fl (7.4-10.4); PLATELET 67 x1000/uL (130-400); RED BLOOD CELL COUNT 2.92 mill/uL (4.7-6.1); RED CELL DISTRIBUTION WIDTH 21.8 % (11.6-14.6)
[2021-01-18] MEDS: METOPROLOL TARTRATE 50MG TABLET PO SCH ×2 (09:08→21:00)
[2021-01-18] MEDS: FAMOTIDINE 20MG TABLET PO SCH (09:08)
[2021-01-18] MEDS: MIDODRINE HCL 5MG TABLET PO SCH ×3 (09:08→17:26)
[2021-01-18] MEDS: FOLIC ACID 1MG TABLET PO SCH (09:08)
[2021-01-18] MEDS: FUROSEMIDE 40MG/4ML VIAL IVP SCH (09:09)
[2021-01-18] MEDS: AMPICILLIN 2,000 MG in SODIUM CHLORIDE 0.9% 100 ML IV SCH ×2 (09:11→20:59)
[2021-01-18 11:34] LABS: NUCLEATED RED BLOOD CELLS 5 /100 WBC
[2021-01-18 11:35] LABS: PLATELET ESTIMATE DECREASED
[2021-01-18] MEDS: ACETAMINOPHEN 325MG TABLET PO PRN ×2 (14:04→19:40)
[2021-01-18] MEDS: DAPTOMYCIN 900 MG in SODIUM CHLORIDE 0.9% 100 ML IV SCH (20:00)
[2021-01-18] MEDS: MORPHINE SULFATE 2 MG/ML CPJ (NOT FOR IM USE) IV PRN (21:06)
[2021-01-19] VITALS (13 sets, daily range): BP systolic 103–135; BP diastolic 61–88
[2021-01-19] MEDS: IPRATROPIUM/ALBUTEROL 0.5-3(2.5)MG/3ML NEB HHN SCH ×4 (00:18→20:10)
[2021-01-19] MEDS: METHYLPREDNISOLONE SOD SUCC 125 MG/2 ML VIAL IV SCH ×3 (05:29→22:00)
[2021-01-19 08:32] LABS: BG CARBOXYHEMOGLOBIN 0.3 % (0.5-1.5); BG DEOXYHEMOGLOBIN 3.1 % (0.0-5.0); BG FRACTION INSPIRED OXYGEN 30; BG HCO3 ACT 27.1 mmol/L (22.0-26.0); BG METHEMOGLOBIN 0.2 % (0.0-1.5); BG OXYGEN SATURATION 96.9 % (92.0-98.5); BG OXYHEMOGLOBIN 96.4 % (94.0-97.0); BG PCO2 50.2 mmHg (35.0-45.0); BG PO2 94.6 mmHg (75.0-100.0); BG SAMPLE SITE RIGHT RADIAL; BG TOTAL HEMOGLOBIN 10.9 g/dL (12.0-18.0); BG VENT MODE MASK - BIPAP
[2021-01-19] MEDS: AMPICILLIN 2,000 MG in SODIUM CHLORIDE 0.9% 100 ML IV SCH ×2 (09:45→20:08)
[2021-01-19] MEDS: METOPROLOL TARTRATE 50MG TABLET PO SCH ×2 (09:46→20:07)
[2021-01-19] MEDS: FOLIC ACID 1MG TABLET PO SCH (09:46)
[2021-01-19] MEDS: FUROSEMIDE 40MG/4ML VIAL IVP SCH (09:46)
[2021-01-19] MEDS: MIDODRINE HCL 5MG TABLET PO SCH ×3 (09:47→17:25)
[2021-01-19] MEDS: FAMOTIDINE 20MG TABLET PO SCH (09:47)
[2021-01-19] MEDS: ACETAMINOPHEN 325MG TABLET PO PRN (12:44)
[2021-01-19] MEDS: MORPHINE SULFATE 2 MG/ML CPJ (NOT FOR IM USE) IV PRN ×2 (13:48→21:00)
== END 2021-01-19 22:03 | DRG 871 ==
LOC: ER 20:07 → ENRESERV 01-03 07:43 → 5WST 01-03 09:31 → CVICU 01-10 09:24 → 5WST 01-11 14:36 → 5EST 01-14 12:18
PROVIDERS: ADMIT Internal Medicine; ATTEND Internal Medicine
PROC: 30233N1 Transfusion of Nonautologous Red Blood Cells into Peripheral Vein, Percutaneous Approach (ICD-10-PCS; principal; 2021-01-04)
PROC: 0DB78ZX Excision of Stomach, Pylorus, Via Natural or Artificial Opening Endoscopic, Diagnostic (ICD-10-PCS; 2021-01-06)
PROC: 5A09357 Assistance with Respiratory Ventilation, Less than 24 Consecutive Hours, Continuous Positive Airway Pressure (ICD-10-PCS; 2021-01-09)
PROC: 05HY33Z Insertion of Infusion Device into Upper Vein, Percutaneous Approach (ICD-10-PCS; 2021-01-10)
PROC: B54MZZA Ultrasonography of Right Upper Extremity Veins, Guidance (ICD-10-PCS; 2021-01-10)
PROC: 5A09357 Assistance with Respiratory Ventilation, Less than 24 Consecutive Hours, Continuous Positive Airway Pressure (ICD-10-PCS; 2021-01-10)
PROC: 5A09357 Assistance with Respiratory Ventilation, Less than 24 Consecutive Hours, Continuous Positive Airway Pressure (ICD-10-PCS; 2021-01-11)
PROC: 5A09357 Assistance with Respiratory Ventilation, Less than 24 Consecutive Hours, Continuous Positive Airway Pressure (ICD-10-PCS; 2021-01-13)
PROC: 5A09557 Assistance with Respiratory Ventilation, Greater than 96 Consecutive Hours, Continuous Positive Airway Pressure (ICD-10-PCS; 2021-01-14)
DX: A41.81 Sepsis due to Enterococcus (principal); J18.9 Pneumonia, unspecified organism; J96.21 Acute and chronic respiratory failure with hypoxia; I33.0 Acute and subacute infective endocarditis; N17.0 Acute kidney failure with tubular necrosis; I50.23 Acute on chronic systolic (congestive) heart failure; J44.0 Chronic obstructive pulmonary disease with (acute) lower respiratory infection; E46 Unspecified protein-calorie malnutrition; D68.9 Coagulation defect, unspecified; E87.1 Hypo-osmolality and hyponatremia; E87.2 Acidosis; G93.40 Encephalopathy, unspecified; I42.9 Cardiomyopathy, unspecified; Z16.21 Resistance to vancomycin; I13.0 Hypertensive heart and chronic kidney disease with heart failure and stage 1 through stage 4 chronic kidney disease, or unspecified chronic kidney disease; I46.2 Cardiac arrest due to underlying cardiac condition; I49.01 Ventricular fibrillation; E66.9 Obesity, unspecified; E78.5 Hyperlipidemia, unspecified; I48.0 Paroxysmal atrial fibrillation; D69.6 Thrombocytopenia, unspecified; C61 Malignant neoplasm of prostate; E87.5 Hyperkalemia; L89.816 Pressure-induced deep tissue damage of head; I25.10 Atherosclerotic heart disease of native coronary artery without angina pectoris; I27.20 Pulmonary hypertension, unspecified; I34.0 Nonrheumatic mitral (valve) insufficiency; K57.30 Diverticulosis of large intestine without perforation or abscess without bleeding; N30.20 Other chronic cystitis without hematuria; Z20.822 Contact with and (suspected) exposure to COVID-19; N18.9 Chronic kidney disease, unspecified; R13.10 Dysphagia, unspecified; I25.2 Old myocardial infarction; Z85.46 Personal history of malignant neoplasm of prostate; Z86.711 Personal history of pulmonary embolism; Z86.718 Personal history of other venous thrombosis and embolism; Z87.891 Personal history of nicotine dependence; Z99.81 Dependence on supplemental oxygen; Z79.899 Other long term (current) drug therapy; Z68.28 Body mass index [BMI] 28.0-28.9, adult; Z90.79 Acquired absence of other genital organ(s); Z95.810 Presence of automatic (implantable) cardiac defibrillator; D63.8 Anemia in other chronic diseases classified elsewhere
CPT/HCPCS: 36415; 36600; 71045; 74018; 74176; 76770; 76937; 80048; 80053; 80202; 80305; 81003; 82270; 82330; 82375; 82533; 82550; 82575; 82607; 82728; 82746; 82805; 82962; 83540; 83550; 83735; 83880; 83930; 83935; 84100; 84145; 84443; 84484; 85014; 85018; 85025; 85049; 85384; 86850; 86900; 86920; 87077; 87186; 87426; 88305; 88312; 88313; 93005; 93306; 93312; 93880; 93970; 94640; 94660; 99291; C1725; C1893; C9113; J0290; J0696; J0878; J1200; J1650; J1940; J1956; J2250; J2270; J2930; J3010; J3370; J3475; J3490; J7040; J7050; J7060; P9016; Q9963; A4315